=== PATIENT | female | born 1965 | race Caucasian/White ===

== ENCOUNTER 2023-05-09 21:19 | Inpatient (IN) ==
[2023-05-09] MEDS ORDERED: ALBUT/IPRATROP 3MG/0.5MG NEB 3 ML VIAL NEB STA (22:03)
[2023-05-09] MEDS ORDERED: methylPREDNISolone 125 MG/2 ML VIAL IV STA (22:03)
[2023-05-09] MEDS ORDERED: SODIUM CHLORIDE 0.9% 1000ML 1,000 ML IV ONE (22:04)
[2023-05-09 22:17] LABS: Albumin Globulin Ratio 1.3 (0.9-2); Albumin Level 4.5 gm/dl (3.4-5.0); Bilirubin,Total 0.6 mg/dl (0.2-1.0); Calcium 9.5 mg/dl (8.6-10.3); Creatinine Clr Calc Pharmacy 115.1 ml/min; Est GFR (African American) 117.1 ml/min; Globulin 3.4 gm/dl (2.5-4.0); Potassium 4.2 mmol/L (3.5-5.1); Total Protein 7.9 gm/dl (6.0-8.3)
[2023-05-09 22:19] LABS: Basophils # (auto) 0.04 K/uL (0-0.2); Basophils % (auto) 0.5 %; Eosinophils # (auto) 0.15 K/uL (0-0.50); Hematocrit (blood only) 42.4 % (37.0-47.0); Hemoglobin 14.3 g/dl (12.0-16.0); Immature Granulocytes # (auto) 0.02 K/uL (0.01-0.20); Immature Granulocytes % (auto) 0.3 %; Lymphocytes # (auto) 1.64 K/uL (1.2-3.4); Lymphocytes % (auto) 21.8 %; Mean Corpuscular Hemoglobin 26.9 pg (25.0-34.0); Mean Corpuscular Hgb Conc 33.7 g/dL (32.0-36.0); Mean Corpuscular Volume 79.8 fL (80.0-100.0); Mean Platelet Volume 9.9 fL (9.4-12.4); Monocytes # (auto) 0.55 K/uL (0.11-0.59); Monocytes % (auto) 7.3 %; Neutrophils # (auto) 5.14 K/uL (1.40-6.50); Neutrophils % (auto) 68.1 %; Platelet Count 275 K/uL (130-400); RDW Coefficient of Variation 12.8 % (11.5-14.5); RDW Standard Deviation 36.7 fL (36.4-46.3); Red Blood Count 5.31 M/uL (4.20-5.40); White Blood Count 7.54 K/ul (4.8-10.8)
[2023-05-09 22:24] LABS: iSTAT Creatinine 0.5 mg/dl (0.6-1.3); iSTAT Hemoglobin 13.3 g/dl (12.0-16.0); iSTAT Ionized Calcium 1.12 mmol/l (1.12-1.32); iSTAT Potassium 4.1 mmol/L (3.3-5.0)
[2023-05-09 22:27] LABS: Partial Thromboplastin Ratio 0.9; Partial Thromboplastin Time 25.9 Seconds (21.0-31.0); Prothrombin Time 10.8 Seconds (9.0-12.0)
[2023-05-09] MEDS ORDERED: IOVERSOL 350 MG 125mL Prefilled Syringe IV ONE (22:38)
[2023-05-10 00:19] LABS: Adenovirus PCR Not Detected (NotDetected); Bordetella parapertussis PCR Not Detected (NotDetected); Bordetella pertussis PCR Not Detected (NotDetected); Chlamydia pneumoniae PCR Not Detected (NotDetected); Coronavirus 229E PCR Not Detected (NotDetected); Coronavirus CoV-2 (COVID19)PCR Not Detected (NotDetected); Coronavirus HKU1 PCR Not Detected (NotDetected); Coronavirus NL63 PCR Not Detected (NotDetected); Coronavirus OC43PCR Not Detected (NotDetected); Human Metapneumovirus PCR Not Detected (NotDetected); Influenza A PCR Not Detected (NotDetected); Influenza B PCR Not Detected (NotDetected); Mycoplasma pneumoniae PCR Not Detected (NotDetected); Parainfluenza Virus 1 PCR Not Detected (NotDetected); Parainfluenza Virus 2 PCR Not Detected (NotDetected); Parainfluenza Virus 3 PCR Not Detected (NotDetected); Parainfluenza Virus 4 PCR Not Detected (NotDetected); Respiratory Syncytial VirusPCR Not Detected (NotDetected)
--- NOTE | 2023-05-10 00:20 | CT Scan Report ---
Exam(s): CTA CHEST IV Amt: 118ml OPTIRAY 350 EXAM: CT Angiography Chest With Intravenous Contrast CLINICAL HISTORY: Reason for exam: PE. TECHNIQUE: Axial computed tomographic angiography images of the chest with intravenous contrast. CTDI is 26.3 mGy and DLP is 816.47 mGy-cm. Automated exposure control was utilized for the study. A dose lowering technique was utilized adhering to the principles of ALARA. MIP reconstructed images were created and reviewed. 118 ML Optiray 350 given IV. Mild breathing motion artifact. COMPARISON: None. FINDINGS: Pulmonary arteries: No pulmonary embolism. Breathing motion artifact and attenuation of the distal basilar branches limits evaluation for small or peripheral PE. Aorta: No aneurysm. Lungs: Mild interstitial thickening lower lobes, nonspecific, possible pneumonia. No consolidation. Pleural space: Mild bilateral pleural effusion. No pneumothorax. Heart: Mild to moderate cardiomegaly. No significant pericardial effusion. No evidence of elevated right heart pressures. Bones/joints: No acute fracture. Soft tissues: Unremarkable. Lymph nodes: No enlarged lymph nodes. IMPRESSION: 1. No pulmonary embolism. 2. Mild bilateral pleural effusions and infiltrates are nonspecific, concerning for pneumonia. Electronically signed by: Alisa Dawkins M.D. 05/10/23 00:19 AM
[2023-05-10] MEDS ORDERED: cefTRIAXone SODIUM 2,000 MG/70 ML BAG IV STA (00:24)
[2023-05-10] MEDS ORDERED: AZITHROMYCIN 250 MG TAB PO ONE (00:24)
[2023-05-10 00:31] LABS: Rhinovirus/Enterovirus PCR DETECTED (NotDetected)
[2023-05-10 01:10] LABS: C Reactive Protein 0.85 mg/dl (0-0.5)
--- NOTE | 2023-05-10 01:10 | Emergency Department Note ---
History of Present Illness General Chief complaint: Shortness of Breath/Dyspnea Stated complaint: SOB, COUGHING UP MUCUS, TIGHTNESS IN CHEST, ASTHMA Time Seen by Provider: 05/09/23 21:47 History of Present Illness Maximum Pain Intensity: 6 This 58-year-old female presents to the ER complaining of chest pain, dyspnea, cough and congestion for the past week. Patient uses tobacco products. She does not routinely see a doctor.Patient denies fevers, exertional chest pain, abdominal pain, vomiting, diarrhea. No prior heart disease per patient. No history of blood clots. She has had some increased swelling in her legs bilaterally. Past Med/Surg History Social History Smoking Status: Current every day smoker Tobacco Type: E-cigarettes / Vaping Preferred Language: [place] Feels Safe at Home: Yes Review of Systems A total of 10 systems reviewed and were otherwise negative Physical Exam Vital Signs Vital Signs - 24 hr 05/09/23 21:21 05/09/23 22:10 05/09/23 22:16 Temperature 36.5 C Temperature Source Temporal Artery Scan Pulse Rate 102 H Pulse Rate [Bilateral] 90 Pulse Rate from SpO2 Sensor Pulse Rhythm Respiratory Rate 18 15 Respiratory Depth Normal Blood Pressure 178/87 H Blood Pressure [Left Arm] 156/88 H Blood Pressure Mean 117 Blood Pressure Mean [Left Arm] 110 Pulse Oximetry 96 98 Oxygen Delivery Method Room Air Room Air Sepsis Recent Fever Within 48 Hours No Sepsis New/Unexplained Change in Mental Status N/A Sepsis Action Taken by Nursing No Action Required 05/09/23 22:16 05/09/23 22:13 05/10/23 00:00 Temperature Temperature Source Pulse Rate 90 90 96 H Pulse Rate [Bilateral] Pulse Rate from SpO2 Sensor 95 H Pulse Rhythm Regular Respiratory Rate 18 Respiratory Depth Blood Pressure 148/87 H Blood Pressure [Left Arm] Blood Pressure Mean 107 Blood Pressure Mean [Left Arm] Pulse Oximetry 98 92 Oxygen Delivery Method Room Air Sepsis Recent Fever Within 48 Hours Sepsis New/Unexplained Change in Mental Status Sepsis Action Taken by Nursing VITALS: Vitals are noted on the nurse's note and reviewed by myself. Vital signs stable. GENERAL: pleasant female, in no acute distress, nondiaphoretic, well-developed well-nourished. SKIN: The skin was without rashes, erythema, or bruising. There is no tenting of the skin. Capillary reflex less than 2 seconds. HEAD: Normocephalic atraumatic. EARS: External auditory canals clear, tympanic membranes pearly méndez without erythema or effusion bilaterally. EYES: Pupils equal round and reactive to light and accommodation. Conjunctivae without injection, sclerae without icterus. Extraocular movements intact. NOSE: Patent, turbinates without inflammation or discharge. MOUTH: Mucous membranes moist. Pharynx without erythema or exudate. Uvula midline. Airway patent. Tongue does not deviate. NECK: Supple without nuchal rigidity. No lymphadenopathy. No thyromegaly. Cervical spine is nontender. No JVD. HEART: Regular rate and rhythm LUNGS: Mild diffuse inspiratory and end expiratory wheezes, No retractions or accessory muscle use. ABDOMEN: Positive bowel sounds x 4. Normal tympanic percussion. Soft, nontender, without masses or organomegaly. Salamanca sign negative. No guarding or rebound tenderness. No CVA tenderness MUSCULOSKELETAL: No muscle atrophy, erythema, noted. Minimal pitting edema to the lower extremities bilaterally NEURO: Patient was alert and oriented to person place and time. Normal sensation to light and sharp touch. No focal neurological deficits. Course Administered Medications Discontinued Medications Albuterol (Albut/Ipratrop 3mg/0.5mg Neb 3 Ml Vial) 3 ml NEB NOW STA; Protocol Stop: 05/09/23 22:04 Last Admin: 05/09/23 22:50 Dose: 3 ml Documented By: SAMEER Azithromycin (Azithromycin 250 Mg Tab) 500 mg PO NOW ONE Stop: 05/10/23 00:25 Last Admin: 05/10/23 00:40 Dose: 500 mg Documented By: JARAD Sodium Chloride (Nss 1000ml) 1,000 mls @ 999 mls/hr IV .Q1H1M ONE Stop: 05/09/23 23:04 Last Infusion: 05/09/23 23:58 Dose: 0 mls/hr Documented By: Admin: 05/09/23 22:50 Dose: 999 mls/hr Documented By: SAMEER Ceftriaxone Sodium (Rocephin) 2,000 mg in 70 mls @ 140 mls/hr IV NOW STA Stop: 05/10/23 00:53 Last Admin: 05/10/23 00:39 Dose: 140 mls/hr Documented By: JARAD Ioversol (Ioversol 350 Mg 125ml Prefilled Syringe) 118 ml IV ONCE ONE Stop: 05/09/23 22:39 Last Admin: 05/09/23 22:38 Dose: 118 ml Documented By: WESTON Methylprednisolone (Methylprednisolone 125 Mg/2 Ml Vial) 125 mg IV NOW STA Stop: 05/09/23 22:04 Last Admin: 05/09/23 22:50 Dose: 125 mg Documented By: SAMEER Medical Decision Making Medical Records Attestation: I reviewed the patient's medical records. Home Medications Current Medication List: was personally reviewed by me Laboratory Data Attestation: I reviewed the patient's lab results. 05/09/23 21:40 05/09/23 21:40 Lab Results 05/09/23 05/09/23 05/09/23 Range/Units 11:10 21:40 21:40 WBC 7.54 (4.8-10.8) K/ul RBC 5.31 (4.20-5.40) M/uL Hgb 14.3 (12.0-16.0) g/dl POC Hgb (12.0-16.0) g/dl Hct 42.4 (37.0-47.0) % POC Hct (37-47) % MCV 79.8 L (80.0-100.0) fL MCH 26.9 (25.0-34.0) pg MCHC 33.7 (32.0-36.0) g/dL RDW Std Deviation 36.7 (36.4-46.3) fL RDW Coeff of Viktor 12.8 (11.5-14.5) % Plt Count 275 (130-400) K/uL MPV 9.9 (9.4-12.4) fL Immature Gran % (Auto) 0.3 % Neut % (Auto) 68.1 % Lymph % (Auto) 21.8 % Barbour % (Auto) 7.3 % Eos % (Auto) 2.0 % Baso % (Auto) 0.5 % Neut # (Auto) 5.14 (1.40-6.50) K/uL Lymph # (Auto) 1.64 (1.2-3.4) K/uL Barbour # (Auto) 0.55 (0.11-0.59) K/uL Eos # (Auto) 0.15 (0-0.50) K/uL Baso # (Auto) 0.04 (0-0.2) K/uL Immature Gran # (Auto) 0.02 (0.01-0.20) K/uL ESR (0-30) mm/hr PT 10.8 (9.0-12.0) Seconds INR 1.0 (0.9-1.1) APTT 25.9 (21.0-31.0) Seconds PTT Ratio 0.9 POC Sodium (135-144) mmol/L Sodium (136-145) mmol/L POC Potassium (3.3-5.0) mmol/L Potassium (3.5-5.1) mmol/L POC Chloride (101-112) mmol/L Chloride (98-107) mmol/L Carbon Dioxide (21-32) mmol/L POC Total CO2 (24-31) mmol/L Anion Gap (3-11) POC Anion Gap (16-25) mmol/L POC BUN (7-18) mg/dl BUN (6-23) mg/dl Creatinine (0.6-1.2) mg/dl POC Creatinine (0.6-1.3) mg/dl Est Cr Clr Drug Dosing ml/min Est GFR ( Amer) ml/min Est GFR (Non-Af Amer) ml/min BUN/Creatinine Ratio (10-20) Glucose (70-99(Fasting)) mg/dl POC Glucose (other) (70-99) mg/dl Calcium (8.6-10.3) mg/dl POC Ioniz Calcium Nicol (1.12-1.32) mmol/l Total Bilirubin (0.2-1.0) mg/dl AST (13-39) U/L ALT (7-52) U/L Alkaline Phosphatase (34-104) U/L Troponin I High Sens (0-14) pg/ml B-Natriuretic Peptide (0-100) pg/ml Total Protein (6.0-8.3) gm/dl Albumin (3.4-5.0) gm/dl Globulin (2.5-4.0) gm/dl Albumin/Globulin Ratio (0.9-2) Adenovirus (PCR) Not Detected (NotDetected) B. pertussis DNA (PCR) Not Detected (NotDetected) B.parapertussis DNA PCR Not Detected (NotDetected) C. pneumoniae DNA (PCR) Not Detected (NotDetected) Coronavirus OC43 (PCR) Not Detected (NotDetected) Coronavirus HKU1 (PCR) Not Detected (NotDetected) Coronavirus 229E (PCR) Not Detected (NotDetected) SARS-CoV-2 (PCR) Not Detected (NotDetected) Coronavirus NL63 (PCR) Not Detected (NotDetected) Human Metapneumovir PCR Not Detected (NotDetected) Influenza Type A (PCR) Not Detected (NotDetected) Influenza Type B (PCR) Not Detected (NotDetected) M. pneumoniae (PCR) Not Detected (NotDetected) Parainfluenza 1 (PCR) Not Detected (NotDetected) Parainfluenza 2 (PCR) Not Detected (NotDetected) Parainfluenza 3 (PCR) Not Detected (NotDetected) Parainfluenza 4 (PCR) Not Detected (NotDetected) RSV (PCR) Not Detected (NotDetected) Entero/Rhino (PCR) DETECTED A* (NotDetected) 05/09/23 05/09/23 05/09/23 Range/Units 21:40 21:40 22:07 WBC (4.8-10.8) K/ul RBC (4.20-5.40) M/uL Hgb (12.0-16.0) g/dl POC Hgb 13.3 (12.0-16.0) g/dl Hct (37.0-47.0) % POC Hct 39 (37-47) % MCV (80.0-100.0) fL MCH (25.0-34.0) pg MCHC (32.0-36.0) g/dL RDW Std Deviation (36.4-46.3) fL RDW Coeff of Viktor (11.5-14.5) % Plt Count (130-400) K/uL MPV (9.4-12.4) fL Immature Gran % (Auto) % Neut % (Auto) % Lymph % (Auto) % Barbour % (Auto) % Eos % (Auto) % Baso % (Auto) % Neut # (Auto) (1.40-6.50) K/uL Lymph # (Auto) (1.2-3.4) K/uL Barbour # (Auto) (0.11-0.59) K/uL Eos # (Auto) (0-0.50) K/uL Baso # (Auto) (0-0.2) K/uL Immature Gran # (Auto) (0.01-0.20) K/uL ESR (0-30) mm/hr PT (9.0-12.0) Seconds INR (0.9-1.1) APTT (21.0-31.0) Seconds PTT Ratio POC Sodium 134 L (135-144) mmol/L Sodium 133 L (136-145) mmol/L POC Potassium 4.1 (3.3-5.0) mmol/L Potassium 4.2 (3.5-5.1) mmol/L POC Chloride 96 L (101-112) mmol/L Chloride 97 L (98-107) mmol/L Carbon Dioxide 27 (21-32) mmol/L POC Total CO2 27 (24-31) mmol/L Anion Gap 9 (3-11) POC Anion Gap 15.0 L (16-25) mmol/L POC BUN 12 (7-18) mg/dl BUN 13 (6-23) mg/dl Creatinine 0.59 L (0.6-1.2) mg/dl POC Creatinine 0.5 L (0.6-1.3) mg/dl Est Cr Clr Drug Dosing 115.1 ml/min Est GFR ( Amer) 117.1 ml/min Est GFR (Non-Af Amer) 101.0 ml/min BUN/Creatinine Ratio 22.0 H (10-20) Glucose 260 H (70-99(Fasting)) mg/dl POC Glucose (other) 256 H (70-99) mg/dl Calcium 9.5 (8.6-10.3) mg/dl POC Ioniz Calcium Nicol 1.12 (1.12-1.32) mmol/l Total Bilirubin 0.6 (0.2-1.0) mg/dl AST 17 (13-39) U/L ALT 19 (7-52) U/L Alkaline Phosphatase 90 (34-104) U/L Troponin I High Sens 42.0 H (0-14) pg/ml B-Natriuretic Peptide 856 H (0-100) pg/ml Total Protein 7.9 (6.0-8.3) gm/dl Albumin 4.5 (3.4-5.0) gm/dl Globulin 3.4 (2.5-4.0) gm/dl Albumin/Globulin Ratio 1.3 (0.9-2) Adenovirus (PCR) (NotDetected) B. pertussis DNA (PCR) (NotDetected) B.parapertussis DNA PCR (NotDetected) C. pneumoniae DNA (PCR) (NotDetected) Coronavirus OC43 (PCR) (NotDetected) Coronavirus HKU1 (PCR) (NotDetected) Coronavirus 229E (PCR) (NotDetected) SARS-CoV-2 (PCR) (NotDetected) Coronavirus NL63 (PCR) (NotDetected) Human Metapneumovir PCR (NotDetected) Influenza Type A (PCR) (NotDetected) Influenza Type B (PCR) (NotDetected) M. pneumoniae (PCR) (NotDetected) Parainfluenza 1 (PCR) (NotDetected) Parainfluenza 2 (PCR) (NotDetected) Parainfluenza 3 (PCR) (NotDetected) Parainfluenza 4 (PCR) (NotDetected) RSV (PCR) (NotDetected) Entero/Rhino (PCR) (NotDetected) 05/10/23 Range/Units 00:40 WBC (4.8-10.8) K/ul RBC (4.20-5.40) M/uL Hgb (12.0-16.0) g/dl POC Hgb (12.0-16.0) g/dl Hct (37.0-47.0) % POC Hct (37-47) % MCV (80.0-100.0) fL MCH (25.0-34.0) pg MCHC (32.0-36.0) g/dL RDW Std Deviation (36.4-46.3) fL RDW Coeff of Viktor (11.5-14.5) % Plt Count (130-400) K/uL MPV (9.4-12.4) fL Immature Gran % (Auto) % Neut % (Auto) % Lymph % (Auto) % Barbour % (Auto) % Eos % (Auto) % Baso % (Auto) % Neut # (Auto) (1.40-6.50) K/uL Lymph # (Auto) (1.2-3.4) K/uL Barbour # (Auto) (0.11-0.59) K/uL Eos # (Auto) (0-0.50) K/uL Baso # (Auto) (0-0.2) K/uL Immature Gran # (Auto) (0.01-0.20) K/uL ESR 21 (0-30) mm/hr PT (9.0-12.0) Seconds INR (0.9-1.1) APTT (21.0-31.0) Seconds PTT Ratio POC Sodium (135-144) mmol/L Sodium (136-145) mmol/L POC Potassium (3.3-5.0) mmol/L Potassium (3.5-5.1) mmol/L POC Chloride (101-112) mmol/L Chloride (98-107) mmol/L Carbon Dioxide (21-32) mmol/L POC Total CO2 (24-31) mmol/L Anion Gap (3-11) POC Anion Gap (16-25) mmol/L POC BUN (7-18) mg/dl BUN (6-23) mg/dl Creatinine (0.6-1.2) mg/dl POC Creatinine (0.6-1.3) mg/dl Est Cr Clr Drug Dosing ml/min Est GFR ( Amer) ml/min Est GFR (Non-Af Amer) ml/min BUN/Creatinine Ratio (10-20) Glucose (70-99(Fasting)) mg/dl POC Glucose (other) (70-99) mg/dl Calcium (8.6-10.3) mg/dl POC Ioniz Calcium Nicol (1.12-1.32) mmol/l Total Bilirubin (0.2-1.0) mg/dl AST (13-39) U/L ALT (7-52) U/L Alkaline Phosphatase (34-104) U/L Troponin I High Sens (0-14) pg/ml B-Natriuretic Peptide (0-100) pg/ml Total Protein (6.0-8.3) gm/dl Albumin (3.4-5.0) gm/dl Globulin (2.5-4.0) gm/dl Albumin/Globulin Ratio (0.9-2) Adenovirus (PCR) (NotDetected) B. pertussis DNA (PCR) (NotDetected) B.parapertussis DNA PCR (NotDetected) C. pneumoniae DNA (PCR) (NotDetected) Coronavirus OC43 (PCR) (NotDetected) Coronavirus HKU1 (PCR) (NotDetected) Coronavirus 229E (PCR) (NotDetected) SARS-CoV-2 (PCR) (NotDetected) Coronavirus NL63 (PCR) (NotDetected) Human Metapneumovir PCR (NotDetected) Influenza Type A (PCR) (NotDetected) Influenza Type B (PCR) (NotDetected) M. pneumoniae (PCR) (NotDetected) Parainfluenza 1 (PCR) (NotDetected) Parainfluenza 2 (PCR) (NotDetected) Parainfluenza 3 (PCR) (NotDetected) Parainfluenza 4 (PCR) (NotDetected) RSV (PCR) (NotDetected) Entero/Rhino (PCR) (NotDetected) Imaging Data Attestation: I personally reviewed and interpreted this imaging study as follows: Radiologist's Impression: Chest CTA 05/09/23 22:03 Exam(s): CTA CHEST IV Amt: 118ml OPTIRAY 350 EXAM: CT Angiography Chest With Intravenous Contrast CLINICAL HISTORY: Reason for exam: PE. TECHNIQUE: Axial computed tomographic angiography images of the chest with intravenous contrast. CTDI is 26.3 mGy and DLP is 816.47 mGy-cm. Automated exposure control was utilized for the study. A dose lowering technique was utilized adhering to the principles of ALARA. MIP reconstructed images were created and reviewed. 118 ML Optiray 350 given IV. Mild breathing motion artifact. COMPARISON: None. FINDINGS: Pulmonary arteries: No pulmonary embolism. Breathing motion artifact and attenuation of the distal basilar branches limits evaluation for small or peripheral PE. Aorta: No aneurysm. Lungs: Mild interstitial thickening lower lobes, nonspecific, possible pneumonia. No consolidation. Pleural space: Mild bilateral pleural effusion. No pneumothorax. Heart: Mild to moderate cardiomegaly. No significant pericardial effusion. No evidence of elevated right heart pressures. Bones/joints: No acute fracture. Soft tissues: Unremarkable. Lymph nodes: No enlarged lymph nodes. IMPRESSION: 1. No pulmonary embolism. 2. Mild bilateral pleural effusions and infiltrates are nonspecific, concerning for pneumonia. Electronically signed by: Alisa Dawkins M.D. 05/10/23 00:19 AM MDM Narrative Prior records/ancillary studies reviewed. Triage Nursing notes reviewed. Additional history obtained from family. The patient's history was concerning for chest pain. Differential diagnosis: Etiologies such as cardiac ischemia, aortic dissection, pulmonary embolism, pneumonia, pneumothorax, musculoskeletal, infections, pericarditis, myocarditis, esophageal rupture, gastrointestinal, as well as others were entertained. Physical examination: As above. ER treatment provided: An order was placed for continuous cardiac monitoring. The monitor shows a rate of 60-1 20 with a sinus rhythm per my interpretation. IV fluids, nebulizer, Solu-Medrol, Rocephin and Zithromax were ordered On reassessment the patient felt better. Diagnostic interpretation by me: #1 the electrocardiogram was ordered for chest pain EKG: Normal sinus, normal intervals, minimal ST elevation in V1 and V2, T wave inversion in aVL, impression normal sinus rhythm with subtle ST changes inability to prevent myself I think arrhythmia is unlikely. EKG shows normal sinus rhythm with no interval abnormalities such as QT prolongation or WPW. There are no findings to suggest Brugada syndrome. Cardiac monitoring in the emergency department reveals no tachycardic or bradycardic dysrhythmia. Hypertrophic cardiomyopathy was considered but there are no clear historical elements pointing toward this. EKG is not suggestive. The QRS voltage is not extremely large and there are no suggestive Q waves. #2 the electrocardiogram was ordered for chest pain EKG: Normal sinus, normal intervals, minimal ST elevation in V1 and V2, T wave inversion in aVL, impression normal sinus rhythm with subtle ST changes inability to prevent myself I think arrhythmia is unlikely. EKG shows normal sinus rhythm with no interval abnormalities such as QT prolongation or WPW. There are no findings to suggest Brugada syndrome. Cardiac monitoring in the emergency department reveals no tachycardic or bradycardic dysrhythmia. Hypertrophic cardiomyopathy was considered but there are no clear historical elements pointing toward this. EKG is not suggestive. The QRS voltage is not extremely large and there are no suggestive Q waves. #3 the electrocardiogram was ordered for chest pain EKG: Normal sinus, normal intervals, minimal ST elevation in V1 and V2, T wave inversion in aVL, impression normal sinus rhythm with subtle ST changes inabi lity to prevent myself I think arrhythmia is unlikely. EKG shows normal sinus rhythm with no interval abnormalities such as QT prolongation or WPW. There are no findings to suggest Brugada syndrome. Cardiac monitoring in the emergency department reveals no tachycardic or bradycardic dysrhythmia. Hypertrophic cardiomyopathy was considered but there are no clear historical elements pointing toward this. EKG is not suggestive. The QRS voltage is not extremely large and there are no suggestive Q waves. The labs Independently Interpreted by myself revealed elevated troponin and repeat was Positive rhinovirus Elevated BNP Hyperglycemia without DKA Imaging studies: Chest x-ray with no acute consolidation, pneumothorax or free air per my independent interpretation CTA concerning for mild bilateral pleural effusions and infiltrates concerning for pneumonia per my independent interpretation. Report was reviewed as above. HEART SCORE: Hx: high/mod/low suspicion: 1 ECG: ST depression/nonspecific changes/normal: 1 Age: Greater than 65/45-64/less than 45: 1 Risk factors: (Hypertension, hyperlipidemia, diabetes, coronary disease, tobacco use, cocaine use): 1 Troponin: Greater than 2 times normal limits/1-2 times normal limits/normal: 1 Total: 4 Consultation: A consultation was placed with the hospitalist. The case was discussed and diagnostics were reviewed. The patient was evaluated in the ER for further treatment. Exam and history seem consistent with pneumonia with positive rhinovirus and elevated troponin. EKG was repeated x3 and was unchanged. She had some subtle ST changes. Patient had no exertional chest pain. She only had chest pain when she coughs. She had symptoms for a week. She does not routinely see a doctor. Patient is agreeable treatment plan of admission. Medicine was consulted and the case was discussed. She will be admitted to the medical service for further evaluation and work-up. She was started on antibiotics. Labs and diagnostics were independently interpreted by myself. By the evaluation outlined above emergent etiologies such as aortic dissection, pulmonary embolism, pneumothorax, gastrointestinal, as well as others were deemed relatively unlikely. The pt informed about the findings as listed above. All questions were answered and pleased with the treatment. The chart was completed utilizing [employer] voice recognition software. Grammatical errors, random word insertions, pronoun errors, and incomplete sentences are an occassional consequence of this system due to software limitations, ambient noise, and hardware issues. Any formal questions or concerns about the content, text, or information contained within the body of this dictation should be directly addressed to the physician portfolio assistant for clarification. Impression & Plan Community acquired pneumonia, Elevated troponin, Acute hyperglycemia Discharge Plan Visit Data Chief Complaint: Shortness of Breath/Dyspnea Stated Complaint: SOB, COUGHING UP MUCUS, TIGHTNESS IN CHEST, ASTHMA ED Provider: Bryan Barry ED Midlevel Provider: Aparna Dodson Discharge Problem: Community acquired pneumonia, Elevated troponin, Acute hyperglycemia Patient Disposition: Admitted As Inpatient Condition: Fair Forms Stand Alone Forms: My [facility] Referrals Referrals: PCP,NO [Primary Care Provider] -
[2023-05-10 01:18] LABS: Troponin I High Sensitivity 32.5 pg/ml (0-14)
[2023-05-10] MEDS ORDERED: FUROSEMIDE INJ 20 MG/2 ML VIAL IV ONE ×2 (01:44→13:42)
[2023-05-10 01:45] LABS: Magnesium 1.7 mg/dl (1.7-2.4)
[2023-05-10] MEDS ORDERED: Patient's ALLERGY Info needs ENTERED STA ×2 (02:36→03:13)
[2023-05-10] MEDS ORDERED: METOPROLOL TARTRATE 25 MG TAB PO STA (03:01)
--- NOTE | 2023-05-10 03:01 | History & Physical Report ---
Date of Service May 10, 2023 Assessment & Plan (1) SOB (shortness of breath): Plan: Multifactorial: Community-acquired pneumonia, entero/rhinovirus infection with superimposed bacterial infection, no sepsis for now Acute CHF ? Possibly from uncontrolled BP, hx medication noncompliance Troponin elevation secondary to illness hyperlipidemia, medication noncompliance DM2, history of medication noncompliance, currently diet controlled, suboptimal control as of last outpatient hemoglobin A1c of 8.8 in 2016. ongoing vape use PCU Ceftriaxone, Doxycycline IV Lasix 1 dose now. Strict I/Os, daily weights, CHF education Initiate beta-lashonda and resume prior lisinopril Rx for BP control Follow troponin TTE, Cardiology consult Re: CHF Patient agreeable to resuming previous statin Rx. Basal bolus insulin, ISS BG goal 1 10-1 40, carb count coverage, update he moglobin A1c DVT prophylaxis. Lovenox subcu Full code Text document was generated using aroundtheway voice recognition software. It may contain grammatical or spelling errors. Kindly contact undersigned for clarification of any documentation item in question. History of Present Illness Chief Complaint: Chest pain, cough, SOB. Primary Care Provider: NO PCP History obtained from patient and records. Medical history significant for hypertension, hyperlipidemia, DM2 currently diet controlled, ongoing vape use, medical noncompliance. Patient stopped going to her PCP 5 years ago after losing medical insurance. She stopped taking home medications (lisinopril, Lipitor, and metformin) after losing significant weight. 1 week history of of junky cough symptoms productive of yellow-green sputum. 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 Denies aspiration. Has completed COVID-19 vaccination. 3 days ago, patient noted worsening shortness of breath, fluid retention, leg swelling. Central chest pain without radiation. Ceftriaxone, azithromycin, Solu-Medrol and neb treatment administered upon arrival at the ER. 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 Allergies Allergy/AdvReac Type Severity Reaction Status Date / Time bee venom protein (honey bee) Allergy Severe Anaphylaxis Verified 05/10/23 10:22 metformin AdvReac Vomiting Verified 05/10/23 03:33 Home Medications Medication Instructions Recorded Confirmed Type acetaminophen 500 mg tablet 1,000 mg PO Q6H PRN Fever Or Pain 05/10/23 05/10/23 History (Tylenol Extra Strength) Past Med/Surg History Social History Smoking Status: Current every day smoker Tobacco Type: E-cigarettes / Vaping Preferred Language: Moroccan Feels Safe at Home: Yes Review of Systems Review of Systems: As per HPI, all other systems reviewed and negative Physical Exam Physical Exam: GENERAL: Comfortable, obese, pleasant, no respiratory distress SKIN: Normal color, warm HEENT: [place] palpebral conjunctivae, no ptosis, dry buccal mucosa NECK : Supple, short neck, no tenderness CHEST : Decreased breath sounds, scattered expiratory wheezes, no tenderness HEART : RRR, no obvious murmurs ABDOMEN: Some distention, nontender EXTREMITIES : Bilateral LE swelling, no LE tenderness, prominent LE varicosities, no other conspicuous deformities noted NEUROLOGIC : Coherent, no facial asymmetry, no other gross focality Results & Data Results & Data Vital Signs (Past 12 Hours) Vital Signs Temp Pulse Pulse Resp BP BP Pulse Ox 05/10/23 02:00 92 H 14 126/75 92 05/10/23 02:03 92 H 05/10/23 01:00 95 H 18 145/83 H 92 05/10/23 00:00 96 H 18 148/87 H 92 05/09/23 22:13 90 05/09/23 22:16 90 98 05/09/23 22:16 90 15 156/88 H 98 05/09/23 22:10 05/09/23 21:21 36.5 C 102 H 18 178/87 H 96 O2 Del Method 05/10/23 02:00 05/10/23 02:03 05/10/23 01:00 05/10/23 00:00 05/09/23 22:13 05/09/23 22:16 Room Air 05/09/23 22:16 05/09/23 22:10 Room Air 05/09/23 21:21 Room Air Laboratory Results Laboratory Results WBC 7.54 K/ul (4.8-10.8) 05/09/23 21:40 RBC 5.31 M/uL (4.20-5.40) 05/09/23 21:40 Hgb 14.3 g/dl (12.0-16.0) 05/09/23 21:40 POC Hgb 13.3 g/dl (12.0-16.0) 05/09/23 22:07 Hct 42.4 % (37.0-47.0) 05/09/23 21:40 POC Hct 39 % (37-47) 05/09/23 22:07 MCV 79.8 fL (80.0-100.0) L 05/09/23 21:40 MCH 26.9 pg (25.0-34.0) 05/09/23 21:40 MCHC 33.7 g/dL (32.0-36.0) 05/09/23 21:40 RDW Std Deviation 36.7 fL (36.4-46.3) 05/09/23 21:40 RDW Coeff of Viktor 12.8 % (11.5-14.5) 05/09/23 21:40 Plt Count 275 K/uL (130-400) 05/09/23 21:40 MPV 9.9 fL (9.4-12.4) 05/09/23 21:40 Immature Gran % (Auto) 0.3 % 05/09/23 21:40 Neut % (Auto) 68.1 % 05/09/23 21:40 Lymph % (Auto) 21.8 % 05/09/23 21:40 [place] % (Auto) 7.3 % 05/09/23 21:40 Eos % (Auto) 2.0 % 05/09/23 21:40 Baso % (Auto) 0.5 % 05/09/23:40 Neut # (Auto) 5.14 K/uL (1.40-6.50) 05/09/23 21:40 Lymph # (Auto) 1.64 K/uL (1.2-3.4) 05/09/23 21:40 [place] # (Auto) 0.55 K/uL (0.11-0.59) 05/09/23 21:40 Eos # (Auto) 0.15 K/uL (0-0.50) 05/09/23 21:40 Baso # (Auto) 0.04 K/uL (0-0.2) 05/09/23 21:40 Immature Gran # (Auto) 0.02 K/uL (0.01-0.20) 05/09/23 21:40 ESR 21 mm/hr (0-30) 05/10/23 00:40 PT 10.8 Seconds (9.0-12.0) 05/09/23 21:40 INR 1.0 (0.9-1.1) 05/09/23 21:40 APTT 25.9 Seconds (21.0-31.0) 05/09/23 21:40 PTT Ratio 0.9 05/09/23 21:40 POC Sodium 134 mmol/L (135-144) L 05/09/23 22:07 Sodium 133 mmol/L (136-145) L 05/09/23 21:40 POC Potassium 4.1 mmol/L (3.3-5.0) 05/09/23 22:07 Potassium 4.2 mmol/L (3.5-5.1) 05/09/23 21:40 POC Chloride 96 mmol/L (101-112) L 05/09/23 22:07 Chloride 97 mmol/L (98-107) L 05/09/23 21:40 Carbon Dioxide 27 mmol/L (21-32) 05/09/23 21:40 POC Total CO2 27 mmol/L (24-31) 05/09/23 22:07 Anion Gap 9 (3-11) 05/09/23 21:40 POC Anion Gap 15.0 mmol/L (16-25) L 05/09/23 22:07 POC BUN 12 mg/dl (7-18) 05/09/23 22:07 BUN 13 mg/dl (6-23) 05/09/23 21:40 Creatinine 0.59 mg/dl (0.6-1.2) L 05/09/23 21:40 POC Creatinine 0.5 mg/dl (0.6-1.3) L 05/09/23 22:07 Est Cr Clr Drug Dosing 115.1 ml/min 05/09/23 21:40 Est GFR ( Amer) 117.1 ml/min 05/09/23 21:40 Est GFR (Non-Af Amer) 101.0 ml/min 05/09/23 21:40 BUN/Creatinine Ratio 22.0 (10-20) H 05/09/23 21:40 Glucose 260 mg/dl (70-99(Fasting)) H 05/09/23 21:40 POC Glucose (other) 256 mg/dl (70-99) H 05/09/23 22:07 Calcium 9.5 mg/dl (8.6-10.3) 05/09/23 21:40 POC Ioniz Calcium Nicol 1.12 mmol/l (1.12-1.32) 05/09/23 22:07 Magnesium 1.7 mg/dl (1.7-2.4) 05/10/23 00:40 Total Bilirubin 0.6 mg/dl (0.2-1.0) 05/09/23 21:40 AST 17 U/L (13-39) 05/09/23 21:40 ALT 19 U/L (7-52) 05/09/23 21:40 Alkaline Phosphatase 90 U/L (34-104) 05/09/23 21:40 Troponin I High Sens 32.5 pg/ml (0-14) H 05/10/23 00:40 C-Reactive Protein 0.85 mg/dl (0-0.5) H 05/10/23 00:40 B-Natriuretic Peptide 856 pg/ml (0-100) H 05/09/23 21:40 Total Protein 7.9 gm/dl (6.0-8.3) 05/09/23 21:40 Albumin 4.5 gm/dl (3.4-5.0) 05/09/23 21:40 Globulin 3.4 gm/dl (2.5-4.0) 05/09/23 21:40 Albumin/Globulin Ratio 1.3 (0.9-2) 05/09/23 21:40 Adenovirus (PCR) Not Detected (NotDetected) 05/09/23 11:10 B. pertussis DNA (PCR) Not Detected (NotDetected) 05/09/23 11:10 B.parapertussis DNA PCR Not Detected (NotDetected) 05/09/23 11:10 C. pneumoniae DNA (PCR) Not Detected (NotDetected) 05/09/23 11:10 Coronavirus OC43 (PCR) Not Detected (NotDetected) 05/09/23 11:10 Coronavirus HKU1 (PCR) Not Detected (NotDetected) 05/09/23 11:10 Coronavirus 229E (PCR) Not Detected (NotDetected) 05/09/23 11:10 SARS-CoV-2 (PCR) Not Detected (NotDetected) 05/09/23 11:10 Coronavirus NL63 (PCR) Not Detected (NotDetected) 05/09/23 11:10 Human Metapneumovir PCR Not Detected (NotDetected) 05/09/23 11:10 Influenza Type A (PCR) Not Detected (NotDetected) 05/09/23 11:10 Influenza Type B (PCR) Not Detected (NotDetected) 05/09/23 11:10 M. pneumoniae (PCR) Not Detected (NotDetected) 05/09/23 11:10 Parainfluenza 1 (PCR) Not Detected (NotDetected) 05/09/23 11:10 Parainfluenza 2 (PCR) Not Detected (NotDetected) 05/09/23 11:10 Parainfluenza 3 (PCR) Not Detected (NotDetected) 05/09/23 11:10 Parainfluenza 4 (PCR) Not Detected (NotDetected) 05/09/23 11:10 RSV (PCR) Not Detected (NotDetected) 05/09/23 11:10 Entero/Rhino (PCR) DETECTED (NotDetected) A* 05/09/23 11:10 Impressions Chest CTA 05/09/23 22:03 Exam(s): CTA CHEST IV Amt: 118ml OPTIRAY 350 EXAM: CT Angiography Chest With Intravenous Contrast CLINICAL HISTORY: Reason for exam: PE. TECHNIQUE: Axial computed tomographic angiography images of the chest with intravenous contrast. CTDI is 26.3 mGy and DLP is 816.47 mGy-cm. Automated exposure control was utilized for the study. A dose lowering technique was utilized adhering to the principles of ALARA. MIP reconstructed images were created and reviewed. 118 ML Optiray 350 given IV. Mild breathing motion artifact. COMPARISON: None. FINDINGS: Pulmonary arteries: No pulmonary embolism. Breathing motion artifact and attenuation of the distal basilar branches limits evaluation for small or peripheral PE. Aorta: No aneurysm. Lungs: Mild interstitial thickening lower lobes, nonspecific, possible pneumonia. No consolidation. Pleural space: Mild bilateral pleural effusion. No pneumothorax. Heart: Mild to moderate cardiomegaly. No significant pericardial effusion. No evidence of elevated right heart pressures. Bones/joints: No acute fracture. Soft tissues: Unremarkable. Lymph nodes: No enlarged lymph nodes. IMPRESSION: 1. No pulmonary embolism. 2. Mild bilateral pleural effusions and infiltrates are nonspecific, concerning for pneumonia. Electronically signed by: Alisa Dawkins M.D. 05/10/23 00:19 AM Diagnostic Findings EKG as per my interpretation : Rate 90, NSR, normal axis, septal infarct, T wave abnormalities lateral leads
[2023-05-10] MEDS ORDERED: LANTUS PER UNIT CHARGE SQ SCH (03:15)
[2023-05-10] MEDS: MAGNESIUM SULFATE / D5W 1 GM/100 ML BAG IV SCH ×2 (03:41→06:15)
[2023-05-10] MEDS ORDERED: MoRPHine SULFATE 4 MG/ML 1 ML CARP\\VIAL IV PRN (03:49)
[2023-05-10] MEDS ORDERED: DEXTROSE 50% 50 ML SYRINGE IV PRN (03:49)
[2023-05-10] MEDS ORDERED: LORazepam 0.5 MG TAB PO PRN (03:49)
[2023-05-10] MEDS ORDERED: GLUCOSE 10 TAB/TUBE PO PRN (03:49)
[2023-05-10] MEDS ORDERED: GLUCAGON FOR INJ 1 MG VIAL SQ PRN (03:49)
[2023-05-10] MEDS ORDERED: GLUCOSE 40% GEL 15 GM TUBE PO PRN (03:49)
[2023-05-10] MEDS ORDERED: oxyCODONE HCL IR 5 MG TAB (IMMEDIATE RELEASE) PO PRN (03:49)
[2023-05-10] MEDS ORDERED: PROMETHAZINE HCL 12.5 MG in SODIUM CHLORIDE 0.9% 50 ML IV PRN (03:49)
[2023-05-10] MEDS ORDERED: CARBOHYDRATES FOR HYPOGLYCEMIA PO PRN (03:49)
[2023-05-10] MEDS ORDERED: ACETAMINOPHEN 325 MG TAB PO PRN (03:49)
[2023-05-10] MEDS: INSULIN ASPART PER UNIT CHARGE SC SCH ×4 (04:19→21:33)
[2023-05-10 05:00] LABS: Eosinophils # (auto) 0.01 K/uL (0-0.50); Eosinophils % (auto) 0.2 %; Hematocrit (blood only) 38.2 % (37.0-47.0); Hemoglobin 12.7 g/dl (12.0-16.0); Immature Granulocytes # (auto) 0.01 K/uL (0.01-0.20); Immature Granulocytes % (auto) 0.2 %; Lymphocytes # (auto) 0.54 K/uL (1.2-3.4); Mean Corpuscular Hemoglobin 26.8 pg (25.0-34.0); Mean Corpuscular Hgb Conc 33.2 g/dL (32.0-36.0); Mean Corpuscular Volume 80.6 fL (80.0-100.0); Mean Platelet Volume 9.7 fL (9.4-12.4); Monocytes # (auto) 0.06 K/uL (0.11-0.59); Monocytes % (auto) 1.2 %; Neutrophils # (auto) 4.29 K/uL (1.40-6.50); Neutrophils % (auto) 87.4 %; Platelet Count 240 K/uL (130-400); RDW Coefficient of Variation 12.6 % (11.5-14.5); RDW Standard Deviation 36.6 fL (36.4-46.3); Red Blood Count 4.74 M/uL (4.20-5.40); White Blood Count 4.91 K/ul (4.8-10.8)
[2023-05-10 05:34] LABS: BUN Creatinine Ratio 22.8 (10-20); Creatinine Clr Calc Pharmacy 119.1 ml/min; Est GFR (African American) 118.4 ml/min; Est GFR (Non-African American) 102.2 ml/min; Potassium 3.7 mmol/L (3.5-5.1)
[2023-05-10] MEDS ORDERED: LANTUS PER UNIT CHARGE SQ STA (05:34)
[2023-05-10] MEDS ORDERED: ALBUMIN 25% 25 GM/100 ML VIAL IV ONE (06:51)
[2023-05-10 07:12] LABS: Estimated Average Glucose 272 mg/dl; Hemoglobin A1C 11.1 % (4.5-5.6)
--- NOTE | 2023-05-10 07:50 | XRay Report ---
SINGLE VIEW CHEST CLINICAL HISTORY: Atypical chest pain. FINDINGS: An AP, portable, upright chest radiograph is obtained. No prior studies are available for c omparison at the time of dictation. The heart is mildly enlarged. There is pulmonary vascular congest ion. Question trace pleural effusions. Atelectasis is seen at the lung bases. No pneumothorax is seen . The skeletal structures are osteopenic. The bony thorax is grossly intact. IMPRESSION: 1. Mild cardiomegaly with pulmonary vascular congestion. 2. Suspect trace pleural effusions. ACT 112: Negative or not required by law. Electronically signed by: Heamnt Mann M.D. 05/10/2023 7:49 AM
[2023-05-10] MEDS: DOXYCYCLINE HYCLATE 100 MG CAP PO SCH ×2 (08:25→21:36)
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
[2023-05-10] MEDS: ENOXAPARIN INJ 40 MG/0.4 ML SYR SQ SCH (09:05)
--- NOTE | 2023-05-10 16:20 | Communication Note ---
Date of Service: May 10, 2023 Patient seen and examined at bedside as a follow-up of shortness of breath likely secondary to community-acquired pneumonia and acute CHF. We will continu e with Rocephin and doxycycline. Cardiology on board, patient reports feeling better after being diuresed and breathing treatment. Admitting echo with reduced ejection fraction. Patient undergoing GDMT. On exam, patient feels better, on room air, bibasilar rales appreciated. For detailed information on the patient, refer to today's H&P note.
[2023-05-10] MEDS: METOPROLOL TARTRATE 25 MG TAB PO SCH (21:45)
[2023-05-10] MEDS ORDERED: cefTRIAXone SODIUM 2,000 MG in DEXTROSE 5% 50 ML IV SCH (22:00)
[2023-05-10] MEDS: LEVALBUTEROL 1.25 MG/3 ML NEB NEB PRN (22:07)
[2023-05-11] MEDS: lisinopril 5 MG TAB PO SCH (08:44)
[2023-05-11] MEDS: DOXYCYCLINE HYCLATE 100 MG CAP PO SCH (08:44)
[2023-05-11] MEDS: METOPROLOL TARTRATE 25 MG TAB PO SCH (08:44)
[2023-05-11] MEDS: ENOXAPARIN INJ 40 MG/0.4 ML SYR SQ SCH (08:45)
[2023-05-11] MEDS ORDERED: FUROSEMIDE INJ 20 MG/2 ML VIAL IV SCH (09:00)
[2023-05-11] MEDS ORDERED: ATORVASTATIN 20 MG TAB PO SCH (09:00)
[2023-05-11] MEDS: INSULIN ASPART PER UNIT CHARGE SC SCH ×4 (09:09→21:28)
[2023-05-11] MEDS: LANTUS PER UNIT CHARGE SQ SCH (09:09)
[2023-05-11 09:26] LABS: Hematocrit (blood only) 35.4 % (37.0-47.0); Mean Corpuscular Hemoglobin 27.4 pg (25.0-34.0); Mean Corpuscular Hgb Conc 33.9 g/dL (32.0-36.0); Mean Corpuscular Volume 80.8 fL (80.0-100.0); Mean Platelet Volume 9.9 fL (9.4-12.4); Platelet Count 226 K/uL (130-400); RDW Coefficient of Variation 13.1 % (11.5-14.5); RDW Standard Deviation 38.2 fL (36.4-46.3); Red Blood Count 4.38 M/uL (4.20-5.40)
[2023-05-11 10:00] LABS: BUN Creatinine Ratio 37.7 (10-20); Calcium 8.4 mg/dl (8.6-10.3); Chol HDL Ratio 3.3 (0-5); Creatinine Clr Calc Pharmacy 98.3 ml/min; Est GFR (African American) 111.2 ml/min; Phosphorus 4.3 mg/dl (2.5-4.9)
--- NOTE | 2023-05-11 10:31 | Cardiology Progress Note ---
Date of Service May 11, 2023 Assessment & Plan (1) Acute HFrEF (heart failure with reduced ejection fraction): (2) Ischemic cardiomyopathy: (3) Community acquired pneumonia: (4) Acute hyperglycemia: Plan: (1) Acute HFrEF (heart failure with reduced ejection fraction): -Presentation suggests age-indeterminate LAD infarct, likely happened more than a week ago given Q waves on EKG, thinning of the anteroseptum on echocardiogram, severe left ventricular systolic dysfunction noted. No definite angina, mild, but flat troponin elevation noted on presentation. Patient's weight likely not accurate as it was the belted bed scale, standing scale weights ordered. Reviewed with nursing importance of recording her intake and output. For now we will continue furosemide 20 mg IV daily, along with lisinopril 5 mg daily, and we will transition her to metoprolol succinate 25 mg daily. -Recommend delineation of coronary anatomy while inpatient. Will reassess tomorrow to see if she is compensated well enough to allow procedure. Anticipate indication for bridge therapy with wearable LifeVest upon discharge. Patient interested in pursuing this and I will work on the order. (2) Ischemic cardiomyopathy: -as noted above (3) Community acquired pneumonia: -PCR testing positive for rhinovirus/enterovirus. Possible superimposed bacterial pneumonia and therefore she is on doxycycline and Rocephin as well. (4) Acute hyperglycemia: -Acute elevation in glucose noted. Hemoglobin A1c 11.1%. Patient is on Lantus and NovoLog sliding scale. DVT prophylaxis: Subcutaneous Lovenox Admission and Anticipated Discharge Date Admission Date: May 10, 2023 Subjective Patient seen in cardiology follow up. Notes cough productive of green sputum and runny nose. Telemetry reveals SR in the 60s. Review of Systems Review of Systems: All systems reviewed & are unremarkable except as noted in HPI & below Physical Exam Constitutional: WD/WN, vitals as above Eyes: PERRL, conjunctivae normal, anicteric sclerae Respiratory: Auscultation: + diminished lung sounds (Decreased breath sounds bilaterally at the bases); no wheezes Cardiovascular: RRR, no murmur, no edema Gastrointestinal (Abdomen): normal bowel sounds, soft, nontender, no hepatosplenomegaly Neurologic: PERRL, EOMI, accommodation nl, no face palsy, no dysarthria Results & Data Vital Signs (Past 12 Hours) Vital Signs Temp Pulse Pulse Resp BP BP Pulse Ox 08/02/23 08:11 36.6 C 71 16 115/74 96 05/11/23 04:09 36.8 C 86 18 120/68 97 05/10/23 23:45 72 05/10/23 22:50 36.9 C 76 18 100/65 93 O2 Del Method 05/11/23 08:11 Room Air 05/11/23 04:09 Room Air 05/10/23 23:45 05/10/23 22:50 Room Air Laboratory Results Lipids 05/11/23 Range/Units 08:57 Triglycerides 105 (0-150) mg/dl Cholesterol 160 (0-200) mg/dl HDL Cholesterol 49 mg/dl Cholesterol/HDL Ratio 3.3 (0-5) LDL 90 mg/dl CBC 05/11/23 Range/Units 08:57 WBC 5.70 (4.8-10.8) K/ul RBC 4.38 (4.20-5.40) M/uL Hgb 12.0 (12.0-16.0) g/dl Hct 35.4 L (37.0-47.0) % Plt Count 226 (130-400) K/uL Comprehensive Metabolic Panel 05/11/23 Range/Units 08:57 Sodium 132 L (136-145) mmol/L Potassium 4.0 (3.5-5.1) mmol/L Chloride 98 (98-107) mmol/L Carbon Dioxide 27 (21-32) mmol/L BUN 26 H (6-23) mg/dl Creatinine 0.69 (0.6-1.2) mg/dl Glucose 358 H* (70-99(Fasting)) mg/dl Calcium 8.4 L (8.6-10.3) mg/dl (3) Community acquired pneumonia Laterality: unspecified laterality Qualified Code(s): J18.9 - Pneumonia, unspecified organism
[2023-05-11] MEDS ORDERED: PHARMACY GLYCEMIC MGMT CONSULT PRN (10:55)
[2023-05-11] MEDS: LEVALBUTEROL 1.25 MG/3 ML NEB NEB PRN ×2 (11:01→20:12)
--- NOTE | 2023-05-11 11:47 | Pharmacy Report ---
Pharmacy Glycemic Short Note 2 - Date of Service May 11, 2023 - Glycemic Short BSG Results (Last 24 hours): 05/10/23 05/10/23 05/10/23 12:41 17:27 21:10 Glucose POC Glucose 390 H* 192 H 210 H 05/11/23 05/11/23 05/11/23 07:52 08:57 11:34 Glucose 358 H* POC Glucose 263 H 170 H OUTPATIENT ANTIDIABETIC REGIMEN: * n/a, was not using medications for DM * A1c = 11.1% 05/10/23 ASSESSMENT: * Type 2 diabetic, managed in out-pt setting with dietary measures - no medications * Admitted for ADHF and viral PNA with concern for superimposed bacterial PNA * Over the last 24 hrs, 54 units of SQ insulin administered with some improvement in glycemic control * Fasting BSG 263 this AM with 20 units basal insulin on board - will upward taper as pt appears to need 60+ units insulin per day with current diet/stressors * Will base Novolog CF / CR dose upon weight and "moderate" stress level PLAN FOR INPATIENT GLYCEMIC CONTROL: * Basal insulin * Lantus 20 units SQ Q AM * Lantus 0-15 units SQ Q PM per scale: 0 units if BSG less than 130, 10 units if BSG 130-200, 15 units if BSG above 200 * Bolus insulin * NovoLog per scale ACHS and at 0200 tonight * Goal Range: Low 110 mg/dL - High 140 mg/dL * Correction Factor: 20 mg/dL/unit * Nutritional / Prandial insulin per carb ratio of 1 unit per 8 grams CHO consumed
[2023-05-11] MEDS: METOPROLOL SUCC 25MG EXT REL TAB PO SCH (12:04)
--- NOTE | 2023-05-11 13:52 | Hospitalist Progress Note ---
Date of Service May 11, 2023 Assessment & Plan (1) SOB (shortness of breath): (2) Enterovirus infection: (3) Ischemic cardiomyopathy: (4) Acute HFrEF (heart failure with reduced ejection fraction): Plan: 58-year-old woman with history of diabetes mellitus not on any medication, hypertension, hyperlipidemia who presented with cough shortness of breath for about a week. Chest x-ray noted mild cardiomegaly with pulmonary vascular congestion, Chest CTA noted no PE but noted mild bilateral pleural effusion and infiltrates that are nonspecific. Respiratory PCR was positive for enterovirus Troponin was mildly elevated at 4232.5. EKG noted 0.[address] elevation in V1 V2. Echocardiogram noted large size apical septal and anteroseptal wall motion abnormality with hypokinesis to akinesis, associated thinning of the anteroseptal wall, ejection fraction of 25 to 30%, grade 1 diastolic dysfunction and mild mitral regurgitation. No prior echo to compare Based on my evaluation with patient today and review of lab work since admission, my suspicion for bacterial pneumonia is low at this time. Procalcitonin checked today was less than 0.05. Had no leukocytosis or fevers since admission. We will stop antibiotics for now and monitor Patient's symptoms can be explained by the acute heart failure with reduced ejection fraction as well as enterovirus infection. Cardiology evaluation noted Continue Lasix 20 IV daily Continue atorvastatin, lisinopril 5 mg daily, metoprolol succinate 25 mg daily. We will keep n.p.o. past midnight for possible cardiac catheterization by cardiology tomorrow (5) Poorly controlled diabetes mellitus: Plan: Patient reported that she was on metformin in the past but stopped due to GI side effects. Has not been on any antidiabetics since. Reported that she had lost weight since then. Hemoglobin A1c was 11.1 Patient will need insulin. Considering patient does not have insurance and working on medical assistance with the case management, will need affordable insulin 70/30 in discharge. Provided diabetes education salesperson handbags had also seen patient and provided more resources. Will ensure diabetic meds/supplies are provided or prescribed on discharge Needs to follow up closely with PCP DVT PPx - davidx sq I spent a total of 55 minutes coordinating, documenting and providing care for this patient excluding time spent in performance of separately billed services Admission and Anticipated Discharge Date Admission Date: May 10, 2023 Subjective Patient seen and examined. Reports productive cough and exertional dyspnea but stated that this is improving. Denied fever, chills, congestion, chest pain Denied nausea, vomiting, abdominal pain, and diarrhea, constipation Denied dysuria, frequency, urgency, hematuria Physical Exam Constitutional: + well hydrated; no acute distress Eyes: PERRL, conjunctivae normal, anicteric sclerae ENMT: external ear and nose normal, oropharynx normal Respiratory: On room air, in no respiratory distress, diminished breath sounds lung bases Cardiovascular: Rate/Rhythm: regular rate and regular rhythm S1 S2 Gastrointestinal (Abdomen): normal bowel sounds, soft, nontender, no hepatosplenomegaly Musculoskeletal: no cyanosis or clubbing, extremities motor strength 5/5 No pedal edema Neurologic: PERRL, EOMI, accommodation nl, no face palsy, no dysarthria Psychiatric: A+Ox3, euthymic affect Results & Data Results & Data Vital Signs (Past 12 Hours) Vital Signs Temp Pulse Pulse Resp BP BP Pulse Ox 05/11/23 10:00 71 05/11/23 10:00 05/11/23 11:51 36.4 C L 72 14 98/63 L 98 05/11/23 11:02 18 95 05/11/23 08:11 36.6 C 71 16 115/74 96 05/11/23 04:09 36.8 C 86 18 120/68 97 O2 Del Method 05/11/23 10:00 05/11/23 10:00 Room Air 05/11/23 11:51 Room Air 05/11/23 11:02 Room Air 05/11/23 08:11 Room Air 05/11/23 04:09 Room Air Laboratory Results Abnormal lab results 05/10/23 05/10/23 05/11/23 Range/Units 17:27 21:10 07:52 Hct (37.0-47.0) % Sodium (136-145) mmol/L BUN (6-23) mg/dl BUN/Creatinine Ratio (10-20) Glucose (70-99(Fasting)) mg/dl POC Glucose 192 H 210 H 263 H (70-99) mg/dl Calcium (8.6-10.3) mg/dl 05/11/23 05/11/23 05/11/23 Range/Units 08:57 08:57 11:34 Hct 35.4 L (37.0-47.0) % Sodium 132 L (136-145) mmol/L BUN 26 H (6-23) mg/dl BUN/Creatinine Ratio 37.7 H (10-20) Glucose 358 H* (70-99(Fasting)) mg/dl POC Glucose 170 H (70-99) mg/dl Calcium 8.4 L (8.6-10.3) mg/dl
[2023-05-11] MEDS ORDERED: LANTUS PER UNIT CHARGE SQ SCH (21:00)
--- NOTE | 2023-05-11 23:07 | Electrocardiogram Report ---
Test Reason : Blood Pressure : / mmHG Vent. Rate : 091 BPM Atrial Rate : 091 BPM P-R Int : 158 ms QRS Dur : 078 ms QT Int : 348 ms P-R-T Axes : 073 082 091 degrees QTc Int : 428 ms Normal sinus rhythm Septal infarct , age undetermined Abnormal ECG No previous ECGs available Confirmed by Giancarlo Hartman ([id number]) on 05/11/2023 11:07:23 PM Referred By: REFERRED SELF Confirmed By:Giancarlo Hartman
--- NOTE | 2023-05-11 23:08 | Electrocardiogram Report ---
Test Reason : Blood Pressure : / mmHG Vent. Rate : 090 BPM Atrial Rate : 090 BPM P-R Int : 162 ms QRS Dur : 080 ms QT Int : 348 ms P-R-T Axes : 056 042 090 degrees QTc Int : 425 ms Normal sinus rhythm Septal infarct (cited on or before 09-MAY-2023) Nonspecific T wave abnormality Abnormal ECG When compared with ECG of 09-MAY-2023 21:27, No significant change was found Confirmed by Giancarlo Hartman ([id number]) on 05/11/2023 11:08:06 PM Referred By: REFERRED SELF Confirmed By:Giancarlo Hartman
--- NOTE | 2023-05-11 23:12 | Electrocardiogram Report ---
Test Reason : Blood Pressure : / mmHG Vent. Rate : 094 BPM Atrial Rate : 094 BPM P-R Int : 146 ms QRS Dur : 078 ms QT Int : 356 ms P-R-T Axes : 050 006 090 degrees QTc Int : 445 ms Normal sinus rhythm Anteroseptal infarct (cited on or before 09-MAY-2023) Nonspecific T wave abnormality Abnormal ECG When compared with ECG of 09-MAY-2023 21:58, No significant change was found Confirmed by Giancarlo Hartman ([id number]) on 05/11/2023 11:12:15 PM Referred By: REFERRED SELF Confirmed By:Giancarlo Hartman
[2023-05-12] MEDS ORDERED: INSULIN ASPART PER UNIT CHARGE SC ONE (02:00)
[2023-05-12 06:35] LABS: Hematocrit (blood only) 35.5 % (37.0-47.0); Hemoglobin 11.7 g/dl (12.0-16.0); Mean Corpuscular Hemoglobin 27.1 pg (25.0-34.0); Mean Corpuscular Volume 82.2 fL (80.0-100.0); Mean Platelet Volume 9.6 fL (9.4-12.4); Platelet Count 228 K/uL (130-400); RDW Coefficient of Variation 12.9 % (11.5-14.5); Red Blood Count 4.32 M/uL (4.20-5.40); White Blood Count 4.96 K/ul (4.8-10.8)
[2023-05-12 06:53] LABS: Albumin Globulin Ratio 1.4 (0.9-2); Albumin Level 3.5 gm/dl (3.4-5.0); BUN Creatinine Ratio 40.4 (10-20); Bilirubin,Total 0.4 mg/dl (0.2-1.0); Calcium 8.3 mg/dl (8.6-10.3); Creatinine Clr Calc Pharmacy 117.9 ml/min; Est GFR (African American) 118.4 ml/min; Est GFR (Non-African American) 102.2 ml/min; Globulin 2.5 gm/dl (2.5-4.0); Magnesium 1.9 mg/dl (1.7-2.4); Phosphorus 4.1 mg/dl (2.5-4.9)
[2023-05-12] MEDS: METOPROLOL SUCC 25MG EXT REL TAB PO SCH (07:48)
[2023-05-12] MEDS: lisinopril 5 MG TAB PO SCH (07:48)
[2023-05-12] MEDS: ATORVASTATIN 40 MG TAB PO SCH (07:49)
[2023-05-12] MEDS: ENOXAPARIN INJ 40 MG/0.4 ML SYR SQ SCH (07:49)
[2023-05-12] MEDS: INSULIN ASPART PER UNIT CHARGE SC SCH ×4 (09:30→19:58)
[2023-05-12] MEDS ORDERED: LIDOCAINE 1% LOCAL 20 ML VIAL ONE (10:15)
[2023-05-12] MEDS ORDERED: ASPIRIN 81 MG CHEW ONE (10:17)
[2023-05-12] MEDS ORDERED: niCARdipine HCL INJ 2.5 MG/ML 10 ML AMP ONE (10:31)
[2023-05-12] MEDS ORDERED: fentaNYL citrate PF 100 MCG/2 ML VIAL ONE ×2 (10:31→11:24)
[2023-05-12] MEDS ORDERED: MIDAZOLAM HCL 1 MG/ML 2ML VIAL ONE ×2 (10:31→11:22)
[2023-05-12] MEDS ORDERED: HEPARIN (PORCINE) 1000 UNIT/ML 10 ML (CATH LAB USE ONLY) ONE ×3 (10:31→12:14)
[2023-05-12] MEDS ORDERED: NITROGLYCERIN/D5W 100MCG/ML 20ML SYR ONE (10:32)
--- NOTE | 2023-05-12 10:52 | Pre Anesthesia Assessment ---
Date of Service May 12, 2023 Pre Sedation Assessment Vital Signs Temp Pulse Pulse Resp BP BP Pulse Ox 05/12/23 10:15 71 16 121/77 99 05/12/23 08:11 97.9 F 76 16 148/92 H 97 05/12/23 03:10 98.1 F 70 18 120/78 98 05/12/23 00:00 97.9 F 77 18 97/62 L 98 05/11/23 23:33 77 05/11/23 20:50 05/11/23 20:10 97.9 F 76 18 100/64 99 05/11/23 20:13 76 18 99 05/11/23 16:35 98.1 F 68 16 99/65 L 98 05/11/23 11:51 97.5 F L 72 14 98/63 L 98 05/11/23 11:02 18 95 O2 Del Method 05/12/23 10:15 Room Air 05/12/23 08:11 Room Air 05/12/23 03:10 Room Air 05/12/23 00:00 Room Air 05/11/23 23:33 05/11/23 20:50 Room Air 05/11/23 20:10 Room Air 05/11/23 20:13 Room Air 05/11/23 16:35 Room Air 05/11/23 11:51 Room Air 05/11/23 11:02 Room Air Cardiovascular RRR, no murmur, no edema Respiratory normal respiratory effort, lungs clear to auscultation Pre-Sedation Airway Assessment Smoking Status: Current some day smoker Hx Sleep Apnea: No Hx Difficult Intubation: No Short, Thick Neck: No Thyromental Distance: > or= 3.5 Finger Breadths Oral Cavity: + WNL Mallampati Class: II ASA: ASA3 NPO Status Date of Last Intake of Fluids: 05/11/23 Time of Last Intake of Fluids: 21:00 Date of Last Intake of Solid Food: 05/11/23 Time of Last Intake of Solid Foods: 23:30 Procedure Planning Contraindications for Sedation: none Current Medications Reviewed: Yes Notes The planned sedation has been discussed with the patient. Informed Consent was obtained. I have identified the patient, determined the appropriateness of sedation and have assessed the patient immediately prior to the procedure. All medicine(s) and interventions are by my order.
[2023-05-12] MEDS ORDERED: CLOPIDOGREL BISULFATE 300 MG TAB ONE (12:25)
--- NOTE | 2023-05-12 12:39 | Post Anesthesia Assessment ---
Date of Service May 12, 2023 Post Sedation Assessment Vital Signs Temp Pulse Pulse Resp BP BP Pulse Ox 05/12/23 10:54 76 05/12/23 10:15 71 16 121/77 99 05/12/23 08:11 97.9 F 76 16 148/92 H 97 05/12/23 03:10 98.1 F 70 18 120/78 98 05/12/23 00:00 97.9 F 77 18 97/62 L 98 05/11/23 23:33 77 05/11/23 20:50 05/11/23 20:10 97.9 F 76 18 100/64 99 05/11/23 20:13 76 18 99 05/11/23 16:35 98.1 F 68 16 99/65 L 98 O2 Del Method 05/12/23 10:54 05/12/23 10:15 Room Air 05/12/23 08:11 Room Air 05/12/23 03:10 Room Air 05/12/23 00:00 Room Air 05/11/23 23:33 05/11/23 20:50 Room Air 05/11/23 20:10 Room Air 05/11/23 20:13 Room Air 05/11/23 16:35 Room Air Recovery Score Activity: Moves 4 extremities Respiration: Deep Breath/Cough Circulation: +/-20% PreAnes Value Consciousness: Fully Awake Oxygen Saturation: O2 needed for >90% Discharge Sedation Level of Care: Fast Track Phase II Post Sedation Plan On clinical assessment, the patient appears to have tolerated the sedation without complications. Patient is recovering as anticipated. Patient will continue to be monitored by nursing and may be discharged when sedation discharge criteria are met per below protocol. Upon Completions of procedure up to 15 minutes continue every 5 minute vital signs and the P.A.R. score; then discharge to a Phase I or Fast Track to Phase II per the following guidelines: * Discharge Patient to appropriate Phase II area if PAR is 8 or greater or return to pre- procedure baseline. The post - procedure orders will be as directed. * If PAR score is less than 8 or not return to pre-procedure baseline then patient will follow Phase I monitoring till PAR is reached for Phase II. The Phase I may be done in procedure room or may call to secure a Phase I area. * If naloxone or flumazenil are used for reversal, hold in Phase I for continued monitoring from when last reversal dose was given for a minimum of 60 minutes or longer pending the nurse and/or physician discretion of patient condition before discharge to Phase II. Please call the Sedation Physician to re-evaluate and complete post-note for discharge to Phase II area. Do NOT discharge from procedure sedation or Phase 1 until post- sedation evaluation note is complete by procedure /sedation MD Sedation Discharge Instructions to be given to the patient at discharge to home.
--- NOTE | 2023-05-12 12:58 | Cardiac Catheterization ---
[facility] Data: Client Delivery Manager Cardiac Status Clinical evaluation leading to the procedure CAD Presenation: Unstable angina Anginal Classification: CCS III Heart Failure: NYHA Class: CCS IV Diagnostic Physicians Name: Bhanu Dawkins MD Closure Device Recommendations: PCI without planned CABG Cardiac Cath Procedure Full Procedure Date May 12, 2023 Pre-Procedure Diagnosis Pre-Procedure Diagnosis: Cardiomyopathy AUC Score AUC Score: 8 Post-Procedure Diagnosis Post-Procedure Diagnosis: Severe CAD, Successful PCI and Normal Intracardiac Pressures Procedure(s) Performed Procedure(s) Performed: Coronary Angiography, Left Heart Cath, Drug Eluting Stent and IVUS Cloth Covered Helmet Puller Bhanu Dawkins MD Downstream Biomanufacturing Technician(s) Lai Estimated Blood Loss Estimated Blood Loss: 15 Medication(s) Medication(s): Clopidogrel, Fentanyl, Heparin, Lidocaine 1%, Nicardipine, Nitroglycerin and Versed Summary of Findings Indication: New severe LV dysfunction with LAD wall motion abnormality, acute systolic heart failure Access: 6 Fr right radial artery Catheters: [place], EBU 3.5 guide Findings: LM -Short, normal caliber, no significant disease LAD -medium caliber vessel, angulated takeoff, calcified proximally with 50% proximal stenosis, 98% hazy mid segment stenosis, 30 to 40% distal stenosis, myocardial bridging in very distal vessel prior to wrapping around apex. Very small D1 with ostial disease Circumflex -large caliber, angulated takeoff, 30% proximal, small distal circumflex with 70% stenosis after takeoff of large OM 2. Large OM 2 with proximal luminal irregularities. RCA -dominant, medium caliber 20% proximal stenosis, 30% latemid stenosis. 40 to 50% distal stenosis extending across bifurcation with small PDA and into right PLB 1. LVEDP -16 -- PCI -- Antithrombotic therapy: Heparin, clopidogrel Procedure: Left main cannulated with EBU 3.5 guide Pre-procedure flow ANAHY 2-3 Supply Coordinator 50 wire passed across lesion into distal vessel Mid LAD lesion predilated with 2.5 compliant balloon Elias IVUS catheter placed into mid segment. Pullback revealed mildly calcified mid segment disease. Intermediate ostial/proximal LAD disease with circumferential calcium (60% by IVUS, CSA at 5.4 mm). Short left main without significant disease. Dilated lesion stented with 3.0 x 26 mm [place] drug-eluting stent Stent post-dilated with 3.0 noncompliant balloon Post stent implant noted to have no reflow in apical LAD with new occlusion at site of small diagonal. Repeat IVUS of LAD revealed no apparent thrombus or dissection at site of occlusion. Stent well expanded with no apparent edge complications. IC vasodilators administered for spasm without improvement. Apical LAD rewired long whisper wire. IC nitroglycerin/nicardipine administered distal to occlusion via OTW balloon Distal LAD gently dilated with 2.0 balloon to low atmospheres Post post balloon inflation ANAHY 3 flow, stent appeared well expanded with minimal residual stenosis and no other apparent cardiac complications. Arterial Closure: TR band Summary: 1. Multivessel coronary artery disease 98% mid LAD stenosis -60% proximal LAD (by IVUS) 70% stenosis in small distal circumflex 40 to 50% distal RCA extending into RPLB1 2. Normal intracardiac filling pressure 3. Successful PCI of mid LAD with single drug-eluting stent (3.0 x 26 mm Gurpreet). Recommendations: To PCU for continued monitoring Loaded with clopidogrel 600 mg in Client Delivery Manager Continue dual-antiplatelet therapy for at least 1 year Medical management of residual CAD Continue GDMT for ICM, and ASCVD risk factor modification Consult cardiac Rehab Hemodynamics Rest Ao:: 103/59/85 Final Ao: 99/60/77 LV: 89/16 Recommendations Recommendations: PCI without planned CABG Specimens Specimens: None Radiation Exposure (mGy) 4403 Contrast (mls) 100 Anesthesia Moderate 3094-9666 Procedural Complication(s) None Disposition PCU I attest to the content of the Intraoperative Record and any orders documented therein. Any exceptions are noted below. [facility] Card Cath Procedure Codes Cardiac Catheterization Procedure 1: Cardiovascular Cath Procedures: 27497 Coronaries and LHC (+/-LV) Therapeutic Services & Ancillary Procedure 1: Cardiovascular Tx and Anc Procedures: 84142 IV Ultrasound (Coronary or Graft) Moderate Sedation Procedure 1: Sedation/Anesthesia: 75980 Mod Sedation by the same physician;Init15 Min Child Age 5 & Up Procedure 2: Sedation/Anesthesia: 98770 Mod Sedation by the same physician; Ea [id number] Minutes Stenting Procedure 1: Cardiovascular Stent Procedures: 64306 Perc transcatheter placement of intracoronary stent(s), with ang PG Care Time/CCT Total # of Minutes Spent Total Time Spent with Patient: Total time spent is greater than 50% in coordination of care (as documented) at patient's floor/unit and/or counseling patient:
[2023-05-12] MEDS: LANTUS PER UNIT CHARGE SQ SCH (13:30)
[2023-05-12] MEDS ORDERED: LANTUS PER UNIT CHARGE SC SCH (14:00)
--- NOTE | 2023-05-12 15:57 | Cardiology Progress Note ---
Date of Service May 12, 2023 Assessment & Plan (1) Acute HFrEF (heart failure with reduced ejection fraction): (2) Ischemic cardiomyopathy: (3) Community acquired pneumonia: (4) Acute hyperglycemia: Plan: Patient status post drug-eluting stent implantation to the proximal LAD without complication. Discussed importance of continuing dual antiplatelet therapy uninterrupted for minimum of 1 year post PCI. Continue heart failure treatment with ABIMBOLA inhibitor, furosemide and beta-lashonda (metoprolol succinate). Add low-dose Aldactone pending review of a.m. labs Monitor fluid balance, GFR, electrolytes, and daily weights. Continue high intensity statin therapy LifeVest ordered. Admission and Anticipated Discharge Date Admission Date: May 10, 2023 Subjective Patient seen examined postcardiac catheterization. Drug-eluting stent implanted to the proximal LAD without complication. Feeling well post procedure. Denies chest pain or shortness of breath. Radial band in place without bleeding. Review of Systems Review of Systems: All systems reviewed & are unremarkable except as noted in Subjective Physical Exam Constitutional: well nourished; no acute distress Respiratory: no respiratory distress, no labored breathing and no retractions Cardiovascular: Rate/Rhythm: regular rate and regular rhythm Heart Sounds: normal S1; + abnormal S2 and no murmur Extremities: no edema Gastrointestinal (Abdomen): Inspection/Auscultation: abdomen normal to inspection and normal bowel sounds; abdomen not distended Neurologic: CN's II-XI intact bilaterally and moves all extremities Psychiatric: A+Ox3, euthymic affect Results & Data Vital Signs (Past 12 Hours) Vital Signs Temp Pulse Pulse Pulse Resp BP BP 05/12/23 14:29 73 16 138/87 05/12/23 13:59 70 18 115/57 L 05/12/23 13:44 69 18 142/86 H 05/12/23 13:29 68 18 120/74 05/12/23 13:14 36.7 C 61 18 119/79 05/12/23 12:59 65 18 104/70 05/12/23 12:42 64 18 107/78 05/12/23 10:54 76 05/12/23 10:15 71 16 121/77 05/12/23 08:11 36.6 C 76 16 148/92 H Pulse Ox O2 Del Method 05/12/23 14:29 94 Room Air 05/12/23 13:59 96 Room Air 05/12/23 13:44 95 Room Air 05/12/23 13:29 97 Room Air 05/12/23 13:14 95 Room Air 05/12/23 12:59 96 Room Air 05/12/23 12:42 95 Room Air 05/12/23 10:54 05/12/23 10:15 99 Room Air 05/12/23 08:11 97 Room Air Laboratory Results Cardiac Enzymes 05/12/23 Range/Units 06:05 AST 13 (13-39) U/L CBC 05/12/23 Range/Units 06:05 WBC 4.96 (4.8-10.8) K/ul RBC 4.32 (4.20-5.40) M/uL Hgb 11.7 L (12.0-16.0) g/dl Hct 35.5 L (37.0-47.0) % Plt Count 228 (130-400) K/uL Comprehensive Metabolic Panel 05/12/23 Range/Units 06:05 Sodium 134 L (136-145) mmol/L Potassium 4.0 (3.5-5.1) mmol/L Chloride 101 (98-107) mmol/L Carbon Dioxide 27 (21-32) mmol/L BUN 23 (6-23) mg/dl Creatinine 0.57 L (0.6-1.2) mg/dl Glucose 146 H (70-99(Fasting)) mg/dl Calcium 8.3 L (8.6-10.3) mg/dl AST 13 (13-39) U/L ALT 13 (7-52) U/L Alkaline Phosphatase 59 (34-104) U/L Total Protein 6.0 (6.0-8.3) gm/dl Albumin 3.5 (3.4-5.0) gm/dl Intake and Output 05/12/23 05/12/23 05/12/23 06:59 14:59 22:59 Output Total 50 / 200 Balance -0 Output: Urine 50 / 200 Other: Other Intake Source NPO Patient NPO # Unmeasured Voids 1 Weight 88 kg Weight Measurement Method Standing Scale (3) Community acquired pneumonia Laterality: unspecified laterality Qualified Code(s): J18.9 - Pneumonia, unspecified organism
--- NOTE | 2023-05-12 16:01 | Hospitalist Progress Note ---
Date of Service May 12, 2023 Assessment & Plan (1) SOB (shortness of breath): (2) Enterovirus infection: (3) Ischemic cardiomyopathy: (4) Acute HFrEF (heart failure with reduced ejection fraction): Plan: 58-year-old woman with history of diabetes mellitus not on any medication, hypertension, hyperlipidemia who presented with cough shortness of breath for about a week. Chest x-ray noted mild cardiomegaly with pulmonary vascular congestion, Chest CTA noted no PE but noted mild bilateral pleural effusion and infiltrates that are nonspecific. Respiratory PCR was positive for enterovirus Troponin was mildly elevated at 4232.5. EKG noted 0.[address] elevation in V1 V2. Echocardiogram noted large size apical septal and anteroseptal wall motion abnormality with hypokinesis to akinesis, associated thinning of the anteroseptal wall, ejection fraction of 25 to 30%, grade 1 diastolic dysfunction and mild mitral regurgitation. No prior echo to compare Possible acute myocardial infarction within the past 4 weeks s/p cardiac catheterization today which showed Multivessel Coronary artery disease. Had PCI to mLAD with single HARRIETT Will be on DAPT for 1 year Cardiology on board. Will follow up Cardiology about GDMT and lifevest Continue Lasix 20 IV daily Continue atorvastatin, lisinopril 5 mg daily, metoprolol succinate 25 mg daily. (5) Poorly controlled diabetes mellitus: Plan: Patient reported that she was on metformin in the past but stopped due to GI side effects. Has not been on any antidiabetics since. Reported that she had lost weight since then. Hemoglobin A1c was 11.1 Considering patient does not have insurance and working on medical assistance with the case management, will need affordable insulin 70/30 in discharge. Provided more diabetes education today. Lifestyle modification education paraeducator had also seen patient and provided more resources. Will ensure diabetic meds/supplies are provided or prescribed on discharge Needs to follow up closely with PCP CM working on getting patient Medical Assistance Will need PCP set up Will need scripts for meds on discharge Will monitor vaginal bleed. May be related to lovenox Will need to follow up PENAL OFFICER outpatient DVT PPx - lovenox sq I spent a total of 50 minutes coordinating, documenting and providing care for this patient excluding time spent in performance of separately billed services Admission and Anticipated Discharge Date Admission Date: May 10, 2023 Subjective Patient seen and examined after cardiac catheterization Reports cough and exertional dyspnea improving Denied fever, chills, chest pain, nausea, vomiting, abd pain, diarrhea Denied dysuria, freq, urgency Reported small vaginal bleed earlier today. Denied dizziness Physical Exam Constitutional: + well hydrated; no acute distress Eyes: PERRL, conjunctivae normal, anicteric sclerae ENMT: external ear and nose normal, oropharynx normal Respiratory: normal respiratory effort, lungs clear to auscultation Cardiovascular: Rate/Rhythm: regular rate and regular rhythm S1 S2 Gastrointestinal (Abdomen): normal bowel sounds, soft, nontender, no hepatosplenomegaly Musculoskeletal: no cyanosis or clubbing, extremities motor strength 5/5 No pedal edema Neurologic: PERRL, EOMI, accommodation nl, no face palsy, no dysarthria Psychiatric: A+Ox3, euthymic affect Results & Data Results & Data Vital Signs (Past 12 Hours) Vital Signs Temp Pulse Pulse Pulse Resp BP BP 05/12/23 15:53 36.8 C 16 L 72 16 123/81 05/12/23 14:29 73 16 138/87 05/12/23 13:59 70 18 115/57 L 05/12/23 13:44 69 18 142/86 H 05/12/23 13:29 68 18 120/74 05/12/23 13:14 36.7 C 61 18 119/79 05/12/23 12:59 65 18 104/70 05/12/23 12:42 64 18 107/78 05/12/23 10:54 76 05/12/23 10:15 71 16 121/77 05/12/23 08:11 36.6 C 76 16 148/92 H Pulse Ox O2 Del Method 05/12/23 15:53 95 Room Air 05/12/23 14:29 94 Room Air 05/12/23 13:59 96 Room Air 05/12/23 13:44 95 Room Air 05/12/23 13:29 97 Room Air 05/12/23 13:14 95 Room Air 05/12/23 12:59 96 Room Air 05/12/23 12:42 95 Room Air 05/12/23 10:54 05/12/23 10:15 99 Room Air 05/12/23 08:11 97 Room Air Laboratory Results Abnormal lab results 05/11/23 05/12/23 05/12/23 Range/Units 21:08 02:59 06:05 Hgb 11.7 L (12.0-16.0) g/dl Hct 35.5 L (37.0-47.0) % Activ Coag Time Kaolin (94-140) SECONDS Sodium (136-145) mmol/L Creatinine (0.6-1.2) mg/dl BUN/Creatinine Ratio (10-20) Glucose (70-99(Fasting)) mg/dl POC Glucose 186 H 189 H (70-99) mg/dl Calcium (8.6-10.3) mg/dl 05/12/23 05/12/23 05/12/23 Range/Units 06:05 07:54 11:37 Hgb (12.0-16.0) g/dl Hct (37.0-47.0) % Activ Coag Time Kaolin 257 H (94-140) SECONDS Sodium 134 L (136-145) mmol/L Creatinine 0.57 L (0.6-1.2) mg/dl BUN/Creatinine Ratio 40.4 H (10-20) Glucose 146 H (70-99(Fasting)) mg/dl POC Glucose 162 H (70-99) mg/dl Calcium 8.3 L (8.6-10.3) mg/dl 05/12/23 05/12/23 Range/Units 11:58 13:20 Hgb (12.0-16.0) g/dl Hct (37.0-47.0) % Activ Coag Time Kaolin 257 H (94-140) SECONDS Sodium (136-145) mmol/L Creatinine (0.6-1.2) mg/dl BUN/Creatinine Ratio (10-20) Glucose (70-99(Fasting)) mg/dl POC Glucose 143 H (70-99) mg/dl Calcium (8.6-10.3) mg/dl
[2023-05-12 18:27] LABS: Hematocrit (blood only) 38.4 % (37.0-47.0); Hemoglobin 12.5 g/dl (12.0-16.0); Mean Corpuscular Hemoglobin 26.9 pg (25.0-34.0); Mean Corpuscular Hgb Conc 32.6 g/dL (32.0-36.0); Mean Corpuscular Volume 82.8 fL (80.0-100.0); Mean Platelet Volume 9.6 fL (9.4-12.4); Platelet Count 252 K/uL (130-400); RDW Standard Deviation 39.3 fL (36.4-46.3); Red Blood Count 4.64 M/uL (4.20-5.40); White Blood Count 5.68 K/ul (4.8-10.8)
--- NOTE | 2023-05-12 23:39 | Ultrasound Report ---
Exam(s): US PELVIS EXAM: US Pelvis Transabdominal, Complete CLINICAL HISTORY: Reason for exam: Vaginal bleeding. TECHNIQUE: Real-time complete transabdominal pelvic ultrasound with image documentation. COMPARISON: No relevant prior studies available. FINDINGS: Uterus/cervix: Heterogeneous endometrial mass measuring 4.7 cm. Uterus measures 10.1 x 6.6 x 7.3 cm. Right ovary: Right ovary not visualized, obscured by bowel gas. Left ovary: Left ovary not visualized, obscured by bowel gas. Free fluid: No free fluid. Bladder: Unremarkable as visualized. Wall is normal thickness for degree of distention. IMPRESSION: 1. Heterogeneous endometrial mass measuring 4.7 cm, raising concern for malignancy. Consider pelvic MRI for further characterization. METER SUPERVISOR evaluation recommended. Electronically signed by: Joe Champion M.D. 05/12/23 23:38 PM
[2023-05-13 05:53] LABS: Hematocrit (blood only) 38.6 % (37.0-47.0); Hemoglobin 12.7 g/dl (12.0-16.0); Mean Corpuscular Hemoglobin 26.8 pg (25.0-34.0); Mean Corpuscular Hgb Conc 32.9 g/dL (32.0-36.0); Mean Corpuscular Volume 81.4 fL (80.0-100.0); Mean Platelet Volume 9.5 fL (9.4-12.4); Platelet Count 250 K/uL (130-400); RDW Standard Deviation 38.1 fL (36.4-46.3); Red Blood Count 4.74 M/uL (4.20-5.40); White Blood Count 4.71 K/ul (4.8-10.8)
[2023-05-13 06:10] LABS: BUN Creatinine Ratio 23.6 (10-20); Calcium 8.6 mg/dl (8.6-10.3); Creatinine Clr Calc Pharmacy 121.2 ml/min; Est GFR (African American) 119.8 ml/min; Est GFR (Non-African American) 103.4 ml/min; Potassium 4.2 mmol/L (3.5-5.1)
--- NOTE | 2023-05-13 06:35 | Electrocardiogram Report ---
Test Reason : Blood Pressure : / mmHG Vent. Rate : 076 BPM Atrial Rate : 076 BPM P-R Int : 154 ms QRS Dur : 088 ms QT Int : 400 ms P-R-T Axes : 072 066 106 degrees QTc Int : 450 ms Normal sinus rhythm Possible Left atrial enlargement Low voltage QRS Septal infarct (cited on or before 09-MAY-2023) Nonspecific T wave abnormality Abnormal ECG When compared with ECG of 09-MAY-2023 23:07, Questionable change in QRS axis Nonspecific T wave abnormality now evident in Anterior leads Confirmed by Giancarlo Hartman ([id number]) on 05/13/2023 6:35:31 AM Referred By: REFERRED SELF Confirmed By:Giancarlo Hartman
[2023-05-13] MEDS: ASPIRIN 81 MG ECTAB PO SCH (09:20)
[2023-05-13] MEDS: lisinopril 5 MG TAB PO SCH (09:20)
[2023-05-13] MEDS: CLOPIDOGREL BISULFATE 75 MG TAB PO SCH (09:20)
[2023-05-13] MEDS: METOPROLOL SUCC 25MG EXT REL TAB PO SCH (09:20)
[2023-05-13] MEDS: ATORVASTATIN 40 MG TAB PO SCH (09:21)
[2023-05-13] MEDS: LANTUS PER UNIT CHARGE SQ SCH (09:26)
[2023-05-13] MEDS: INSULIN ASPART PER UNIT CHARGE SC SCH ×4 (09:26→21:10)
[2023-05-13] MEDS: SPIRONOLACTONE 12.5 MG TAB PO SCH (11:07)
--- NOTE | 2023-05-13 11:37 | OB/GYN Consultation ---
Date of Consultation May 13, 2023 Assessment & Plan (1) Post-menopause bleeding: needs endometrial biopsy as outpatient in office when stable History of Present Illness Reason for Consultation: Vaginal bleeding Requesting Physician: Dr. Ang Attending Physician: Dahiana Fiugeroa MD History of Present Illness 58-year-old female Postmenopausal for approximately 6 years She has not been seen by any gynecologistt recently. Postmenopausal for approximately 6 yearsPresents to the hospital for heart catheterization which was done by cardiology Noted to have vaginal bleeding starting yesterday passing clots. She has been on blood thinner she has had no previous vaginal bleeding pelvic ultrasound during her hospital stay here which revealed a large endometrial mass 4.7 cm.Patient stated that she has not had any pain or cramps bleeding that she is having Clots That Started This Week. 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 Machine 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: No Beliefs That Will Affect Care: None Current Living Situation: Alone and Spouse Feels Safe at Home: Yes Safety Concerns: Feels Safe At This Time Assistive Devices: None Assistive Devices Comment: reading glasses Physical Exam Constitutional: WD/WN, vitals as above Gastrointestinal (Abdomen): normal bowel sounds, soft, nontender, no hepatosplenomegaly Results & Data Vital Signs (Past 12 Hours) Vital Signs Temp Pulse Pulse Resp BP Pulse Ox O2 Del Method 05/13/23 10:45 71 05/13/23 08:04 37.1 C 74 19 119/70 96 Room Air 05/13/23 03:37 Room Air 05/13/23 02:44 36.8 C 72 16 119/74 97 Room Air 05/13/23 00:05 36.8 C 70 18 107/73 95 Room Air Diagnostic Findings endometrial mass 4.7 cm
--- NOTE | 2023-05-13 12:15 | Pharmacy Report ---
Pharmacy Glycemic Short Note 2 - Date of Service May 13, 2023 - Glycemic Short BSG Results (Last 24 hours): 05/12/23 05/12/23 05/12/23 13:20 16:22 19:54 Glucose POC Glucose 143 H 143 H 95 05/13/23 05/13/23 05/13/23 05:21 07:52 11:51 Glucose 108 H POC Glucose 115 H 132 H OUTPATIENT ANTIDIABETIC REGIMEN: * n/a, was not using medications for DM * A1c = 11.1% 05/10/23 ASSESSMENT: 05/13/23 * Patient's BSGs yesterday were [phone] mg/dL. Patient received 36 units of insulin (30 units of basal and 6 units of bolus). Patient was NPO yesterday until lunch for a procedure. * Fasting today is 115 mg/dL. * Decrease basal by 30% to 20 units daily due to downtrending fasting. * Loosen Novolog. BACKGROUND * Type 2 diabetic, managed in out-pt setting with dietary measures - no medications * Admitted for ADHF and viral PNA with concern for superimposed bacterial PNA * Over the last 24 hrs, 54 units of SQ insulin administered with some improvement in glycemic control * Fasting BSG 263 this AM with 20 units basal insulin on board - will upward taper as pt appears to need 60+ units insulin per day with current diet/stressors * Will base Novolog CF / CR dose upon weight and "moderate" stress level PLAN FOR INPATIENT GLYCEMIC CONTROL: * Basal insulin * Lantus 20 units SQ Q AM * Bolus insulin * NovoLog per scale ACHS and at 0200 tonight * Goal Range: Low 110 mg/dL - High 140 mg/dL * Correction Factor: 25 mg/dL/unit * Nutritional / Prandial insulin per carb ratio of 1 unit per 8 grams CHO consumed
--- NOTE | 2023-05-13 12:50 | Hospitalist Progress Note ---
Date of Service May 13, 2023 Assessment & Plan (1) SOB (shortness of breath): (2) Enterovirus infection: (3) Ischemic cardiomyopathy: (4) Acute HFrEF (heart failure with reduced ejection fraction): Plan: 58-year-old woman with history of diabetes mellitus not on any medication, hypertension, hyperlipidemia who presented with cough shortness of breath for about a week. Chest x-ray noted mild cardiomegaly with pulmonary vascular congestion, Chest CTA noted no PE but noted mild bilateral pleural effusion and infiltrates that are nonspecific. Respiratory PCR was positive for enterovirus Troponin was mildly elevated at 4232.5. EKG noted 0.[address] elevation in V1 V2. Echocardiogram noted large size apical septal and anteroseptal wall motion abnormality with hypokinesis to akinesis, associated thinning of the anteroseptal wall, ejection fraction of 25 to 30%, grade 1 diastolic dysfunction and mild mitral regurgitation. No prior echo to compare Possible acute myocardial infarction within the past 4 weeks s/p cardiac catheterization on 05/12/23 which showed Multivessel Coronary artery disease. Had PCI to mLAD with single HARRIETT Will be on DAPT for 1 year Cardiology on board. Continue atorvastatin, lisinopril 5 mg daily, metoprolol succinate 25 mg daily. Started on spironolactone 12.5mg daily CM working on lifevest (5) Poorly controlled diabetes mellitus: Plan: Patient reported that she was on metformin in the past but stopped due to GI side effects. Has not been on any antidiabetics since. Reported that she had lost weight since then. Hemoglobin A1c was 11.1 Considering patient does not have insurance and working on medical assistance with the case management, will need affordable insulin 70/30 in discharge. associate store director had also seen patient and provided more resources. Will ensure diabetic meds/supplies are provided or prescribed on discharge Needs to follow up closely with PCP (6) Post-menopause bleeding: Plan: Patient developed vaginal bleeding on 05/12/23 Hb has remained stable Pelvis USS noted heterogenous endometrial mass suspicious for malignancy GRINDING ROOM INSPECTOR evaluation today noted Will need to follow up with GRINDING ROOM INSPECTOR for endometrial biopsy CM working on getting patient Medical Assistance Will need PCP set up Will need scripts for meds on discharge DVT PPx - Ambulate I spent a total of 45 minutes coordinating, documenting and providing care for this patient excluding time spent in performance of separately billed services Admission and Anticipated Discharge Date Admission Date: May 10, 2023 Subjective Patient seen and examined Reports cough continues to improve No SOB today Denied chest pain Still has intermittent vaginal bleed Denied nausea, vomiting, abd pain, diarrhea Denied dysuria, freq, hematuria Denied fatigue, palpitation, dizziness Physical Exam Constitutional: + well hydrated; no acute distress Eyes: PERRL, conjunctivae normal, anicteric sclerae ENMT: external ear and nose normal, oropharynx normal Respiratory: normal respiratory effort, lungs clear to auscultation Cardiovascular: Rate/Rhythm: regular rate and regular rhythm S1 S2 Gastrointestinal (Abdomen): normal bowel sounds, soft, nontender, no hepatosplenomegaly Musculoskeletal: no cyanosis or clubbing, extremities motor strength 5/5 Neurologic: PERRL, EOMI, accommodation nl, no face palsy, no dysarthria Psychiatric: A+Ox3, euthymic affect Results & Data Results & Data Vital Signs (Past 12 Hours) Vital Signs Temp Pulse Pulse Resp BP Pulse Ox O2 Del Method 05/13/23 12:07 36.3 C L 72 19 123/78 98 Room Air 05/13/23 10:45 71 05/13/23 08:04 37.1 C 74 19 119/70 96 Room Air 05/13/23 03:37 Room Air 05/13/23 02:44 36.8 C 72 16 119/74 97 Room Air Laboratory Results Abnormal lab results 05/12/23 05/12/23 05/12/23 Range/Units 11:37 11:58 13:20 WBC (4.8-10.8) K/ul Activ Coag Time Kaolin 257 H 257 H (94-140) SECONDS Sodium (136-145) mmol/L Creatinine (0.6-1.2) mg/dl BUN/Creatinine Ratio (10-20) Glucose (70-99(Fasting)) mg/dl POC Glucose 143 H (70-99) mg/dl 05/12/23 05/13/23 05/13/23 Range/Units 16:22 05:21 05:21 WBC 4.71 L (4.8-10.8) K/ul Activ Coag Time Kaolin (94-140) SECONDS Sodium 134 L (136-145) mmol/L Creatinine 0.55 L (0.6-1.2) mg/dl BUN/Creatinine Ratio 23.6 H (10-20) Glucose 108 H (70-99(Fasting)) mg/dl POC Glucose 143 H (70-99) mg/dl 05/13/23 05/13/23 Range/Units 07:52 11:51 WBC (4.8-10.8) K/ul Activ Coag Time Kaolin (94-140) SECONDS Sodium (136-145) mmol/L Creatinine (0.6-1.2) mg/dl BUN/Creatinine Ratio (10-20) Glucose (70-99(Fasting)) mg/dl POC Glucose 115 H 132 H (70-99) mg/dl
--- NOTE | 2023-05-13 13:17 | Cardiology Progress Note ---
Date of Service May 13, 2023 Assessment & Plan (1) Acute HFrEF (heart failure with reduced ejection fraction): (2) Status post insertion of drug-eluting stent into left anterior descending (LAD) artery: (3) Ischemic cardiomyopathy: (4) Community acquired pneumonia: (5) Acute hyperglycemia: Plan: Patient status post drug-eluting stent implantation to the proximal LAD without complication. Discussed importance of continuing dual antiplatelet therapy uninterrupted for minimum of 1 year post PCI. Continue heart failure treatment with ABIMBOLA inhibitor, furosemide and beta-lashonda (metoprolol succinate). Add low-dose Aldactone today. Repeat basic metabolic panel in 1 week. Continue high intensity statin therapy LifeVest ordered. Will be fitted later this afternoon. Afterward, patient may be discharged home from a cardiovascular perspective. Outpatient cardiology follow-up in 1 week. Admission and Anticipated Discharge Date Admission Date: May 10, 2023 Subjective Patient seen examined the bedside. Feeling well today. Denies chest pain or shortness of breath. Aldactone added this AM. No dysrhythmia on telemetry. Anxious for discharge. Awaiting placement of LifeVest. Review of Systems Review of Systems: All systems reviewed & are unremarkable except as noted in Subjective Physical Exam Constitutional: well nourished; no acute distress Respiratory: no respiratory distress, no labored breathing and no retractions Cardiovascular: Rate/Rhythm: regular rate and regular rhythm Heart Sounds: normal S1; + abnormal S2 and no murmur Extremities: no edema Gastrointestinal (Abdomen): Inspection/Auscultation: abdomen normal to inspection and normal bowel sounds; abdomen not distended Neurologic: CN's II-XI intact bilaterally and moves all extremities Psychiatric: A+Ox3, euthymic affect Results & Data Vital Signs (Past 12 Hours) Vital Signs Temp Pulse Pulse Resp BP Pulse Ox O2 Del Method 05/13/23 12:07 36.3 C L 72 19 123/78 98 Room Air 05/13/23 10:45 71 05/13/23 08:04 37.1 C 74 19 119/70 96 Room Air 05/13/23 03:37 Room Air 05/13/23 02:44 36.8 C 72 16 119/74 97 Room Air Laboratory Results CBC 05/12/23 05/13/23 Range/Units 18:02 05:21 WBC 5.68 4.71 L (4.8-10.8) K/ul RBC 4.64 4.74 (4.20-5.40) M/uL Hgb 12.5 12.7 (12.0-16.0) g/dl Hct 38.4 38.6 (37.0-47.0) % Plt Count 252 250 (130-400) K/uL Comprehensive Metabolic Panel 05/13/23 Range/Units 05:21 Sodium 134 L (136-145) mmol/L Potassium 4.2 (3.5-5.1) mmol/L Chloride 102 (98-107) mmol/L Carbon Dioxide 25 (21-32) mmol/L BUN 13 (6-23) mg/dl Creatinine 0.55 L (0.6-1.2) mg/dl Glucose 108 H (70-99(Fasting)) mg/dl Calcium 8.6 (8.6-10.3) mg/dl Intake and Output 05/12/23 05/13/23 05/13/23 22:59 06:59 14:59 Output Total 2099 Balance - -1899 Output: Urine 2099 Other: Weight 86.6 kg Weight Measurement Method Standing Scale (4) Community acquired pneumonia Laterality: unspecified laterality Qualified Code(s): J18.9 - Pneumonia, unspecified organism
--- NOTE | 2023-05-13 23:07 | Electrocardiogram Report ---
Test Reason : Blood Pressure : / mmHG Vent. Rate : 069 BPM Atrial Rate : 069 BPM P-R Int : 166 ms QRS Dur : 092 ms QT Int : 400 ms P-R-T Axes : 074 069 107 degrees QTc Int : 428 ms Normal sinus rhythm Septal infarct (cited on or before 09-MAY-2023) T wave abnormality, consider lateral ischemia Abnormal ECG When compared with ECG of 11-MAY-2023 05:47, Non-specific change in ST segment in Anterior leads Inverted T waves have replaced nonspecific T wave abnormality in Lateral leads Confirmed by Giancarlo Hartman ([id number]) on 05/13/2023 11:07:05 PM Referred By: REFERRED SELF Confirmed By:Giancarlo Hartman
[2023-05-14 06:00] LABS: Hematocrit (blood only) 37.1 % (37.0-47.0); Hemoglobin 12.2 g/dl (12.0-16.0); Mean Corpuscular Hemoglobin 26.8 pg (25.0-34.0); Mean Corpuscular Hgb Conc 32.9 g/dL (32.0-36.0); Mean Corpuscular Volume 81.5 fL (80.0-100.0); Mean Platelet Volume 9.7 fL (9.4-12.4); Platelet Count 249 K/uL (130-400); RDW Coefficient of Variation 12.7 % (11.5-14.5); RDW Standard Deviation 37.6 fL (36.4-46.3); Red Blood Count 4.55 M/uL (4.20-5.40); White Blood Count 4.43 K/ul (4.8-10.8)
[2023-05-14 06:11] LABS: BUN Creatinine Ratio 33.3 (10-20); Calcium 8.2 mg/dl (8.6-10.3); Creatinine Clr Calc Pharmacy 118.3 ml/min; Est GFR (African American) 118.4 ml/min; Est GFR (Non-African American) 102.2 ml/min; Potassium 4.2 mmol/L (3.5-5.1)
--- NOTE | 2023-05-14 09:04 | Cardiology Progress Note ---
Date of Service May 14, 2023 Assessment & Plan (1) Acute HFrEF (heart failure with reduced ejection fraction): (2) Status post insertion of drug-eluting stent into left anterior descending (LAD) artery: (3) Ischemic cardiomyopathy: (4) Community acquired pneumonia: (5) Acute hyperglycemia: Plan 58 yo woman S/P HARRIETT to Proximal LAD Hx of: * Cardiomyopathy * LVEF 25-30% * SBP 110 mmHg * Stop Lisinopril * Start Losartan 25 mg po per day * Plans to transition to Entresto 24/26 mg po BID - may do this as an outpt * Start Aldactone 25 mg po per day * Continue Toprol XL 25 mg po per day * Consider Jardiance 10 mg po per day * HARRIETT * Continue Plavix 75 mg po per day * Continue ASA 81 mg po per day * LDL 90 - goal is 55 * Continue Lipitor 40 mg po per day * Add Zetia 10 mg po per day * Lifevest placed * Plans for f/u with Cardiology at [facility] Admission and Anticipated Discharge Date Admission Date: May 10, 2023 Subjective Events overnight: None reported Pt denied: * Chest pain or * Dyspnea * No LE edema * Lifevest Fitted Review of Systems Review of Systems: All systems reviewed & are unremarkable except as noted in HPI & below Results & Data Vital Signs (Past 12 Hours) Vital Signs Temp Pulse Pulse Resp BP Pulse Ox O2 Del Method 05/14/23 07:59 36.6 C 68 16 111/73 96 Room Air 05/14/23 03:26 36.4 C L 71 18 115/74 98 Room Air 05/13/23 23:24 36.8 C 75 18 100/67 98 Room Air 05/13/23 22:56 76 Laboratory Results CBC 05/14/23 Range/Units 05:21 WBC 4.43 L (4.8-10.8) K/ul RBC 4.55 (4.20-5.40) M/uL Hgb 12.2 (12.0-16.0) g/dl Hct 37.1 (37.0-47.0) % Plt Count 249 (130-400) K/uL Comprehensive Metabolic Panel 05/14/23 Range/Units 05:21 Sodium 132 L (136-145) mmol/L Potassium 4.2 (3.5-5.1) mmol/L Chloride 101 (98-107) mmol/L Carbon Dioxide 25 (21-32) mmol/L BUN 19 (6-23) mg/dl Creatinine 0.57 L (0.6-1.2) mg/dl Glucose 200 H (70-99(Fasting)) mg/dl Calcium 8.2 L (8.6-10.3) mg/dl Intake and Output 05/13/23 05/14/23 05/14/23 22:59 06:59 14:59 Intake Total 740 / 1940 1200 / 1940 Output Total 800 / 2300 1500 / 2300 200 / 200 Balance -60 / -360 -300 / -360 -200 / -200 Intake: Oral 740 / 1940 1200 / 1940 Output: Urine 800 / 2300 1500 / 2300 200 / 200 Other: Weight 86.6 kg 88.6 kg Weight Measurement Method Standing Scale Standing Scale (4) Community acquired pneumonia Laterality: unspecified laterality Qualified Code(s): J18.9 - Pneumonia, unsp ecified organism
[2023-05-14] MEDS: CLOPIDOGREL BISULFATE 75 MG TAB PO SCH (09:40)
[2023-05-14] MEDS: ASPIRIN 81 MG ECTAB PO SCH (09:40)
[2023-05-14] MEDS: ATORVASTATIN 40 MG TAB PO SCH (09:40)
[2023-05-14] MEDS: lisinopril 5 MG TAB PO SCH (09:40)
[2023-05-14] MEDS: SPIRONOLACTONE 12.5 MG TAB PO SCH (09:40)
[2023-05-14] MEDS: METOPROLOL SUCC 25MG EXT REL TAB PO SCH (09:40)
[2023-05-14] MEDS: INSULIN ASPART PER UNIT CHARGE SC SCH ×2 (09:44→12:52)
[2023-05-14] MEDS: LANTUS PER UNIT CHARGE SQ SCH (09:45)
--- NOTE | 2023-05-14 12:06 | Discharge Summary ---
Date of Service May 14, 2023 Admission HPI Per Admitting Provider History obtained from patient and records. Medical history significant for hypertension, hyperlipidemia, DM2 currently diet controlled, ongoing vape use, medical noncompliance. Patient stopped going to her PCP 5 years ago after losing medical insurance. She stopped taking home medications (lisinopril, Lipitor, and metformin) after losing significant weight. 1 week history of of junky cough symptoms productive of yellow-green sputum. 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 Denies aspiration. Has completed COVID-19 vaccination. 3 days ago, patient noted worsening shortness of breath, fluid retention, leg swelling. Central chest pain without radiation. Ceftriaxone, azithromycin, Solu-Medrol and neb treatment administered upon arrival at the ER. 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 Admission Exam Per Admitting Provider GENERAL: Comfortable, obese, pleasant, no respiratory distress SKIN: Normal color, warm HEENT: [place] palpebral conjunctivae, no ptosis, dry buccal mucosa NECK : Supple, short neck, no tenderness CHEST : Decreased breath sounds, scattered expiratory wheezes, no tenderness HEART : RRR, no obvious murmurs ABDOMEN: Some distention, nontender EXTREMITIES : Bilateral LE swelling, no LE tenderness, prominent LE varicosities, no other conspicuous deformities noted NEUROLOGIC : Coherent, no facial asymmetry, no other gross focality Principal Diagnosis Acute heart failure with reduced ejection fraction Ischemic cardiomyopathy Status post insertion of drug eluting stent into left anterior descending artery Enterovirus infection Poorly controlled Diabetes mellitus Post-menopausal bleeding Uterine mass Discharge Exam Constitutional + well hydrated; no acute distress Eyes PERRL, conjunctivae normal, anicteric sclerae ENMT external ear and nose normal, oropharynx normal Respiratory normal respiratory effort, lungs clear to auscultation Cardiovascular Rate/Rhythm: regular rate and regular rhythm S1 S2 Gastrointestinal (Abdomen) normal bowel sounds, soft, nontender, no hepatosplenomegaly Musculoskeletal no cyanosis or clubbing, extremities motor strength 5/5 Neurologic PERRL, EOMI, accommodation nl, no face palsy, no dysarthria Psychiatric A+Ox3, euthymic affect Discharge Data Allergies Allergy/AdvReac Type Severity Reaction Status Date / Time bee venom protein (honey bee) Allergy Severe Anaphylaxis Verified 05/10/23 10:22 metformin AdvReac Vomiting Verified 05/10/23 03:33 Consultations 05/10/23 00:48 ED Decision to Admit Stat 05/10/23 03:49 Consult Cardiology Routine 05/13/23 08:03 Consult Gynecology Routine Procedures Performed Operation Date: 05/12/23 11:00 Actual Procedures s Cineradiography w/Routine Exam - Hiro Dawkins MD s Cath, Left with Cors and Vent - Hior Dawkins MD p Drug Eluting Stent SGl Vessel - Hiro Dawkins MD s IVUS Coronary Single Vessel - Hiro Dawkins MD Ordered Studies 05/09/23 22:03 CT angio chest PE protocol Stat 05/12/23 08:34 CL Cath Imgs for PACS use only Stat 05/12/23 13:16 CL IVUS Coronary Single Vessel Routine 05/12/23 17:51 US pelvic complete Urgent Diabetes Follow up Diabetes Follow-up Needed for HgbA1c >9% Hospital Course (1) SOB (shortness of breath): (2) Enterovirus infection: (3) Ischemic cardiomyopathy: (4) Acute HFrEF (heart failure with reduced ejection fraction): 58-year-old woman with history of diabetes mellitus not on any medication, hypertension, hyperlipidemia who presented with cough shortness of breath for about a week. Chest x-ray noted mild cardiomegaly with pulmonary vascular congestion, Chest CTA noted no PE but noted mild bilateral pleural effusion and infiltrates that are nonspecific. Respiratory PCR was positive for enterovirus Troponin was mildly elevated at 4232.5. EKG noted 0.[address] elevation in V1 V2. Echocardiogram noted large size apical septal and anteroseptal wall motion abnormality with hypokinesis to akinesis, associated thinning of the anteroseptal wall, ejection fraction of 25 to 30%, grade 1 diastolic dysfunction and mild mitral regurgitation. No prior echo to compare Possible acute myocardial infarction within the past 4 weeks s/p cardiac catheterization on 05/12/23 which showed Multivessel Coronary artery disease. Had PCI to mLAD with single HARRIETT 98% mid LAD stenosis 60% proximal LAD (by IVUS) 70% stenosis in small distal circumflex 40 to 50% distal RCA extending into RPLB1 Will be on DAPT for at least 1 year Patient has Life Vest set up Discharged on the following new medications: -Aspirin 81mg daily and Clopidogrel 75mg daily -Atorvastatin 40mg daily -Losartan 25mg daily -Metoprolol succinate 25mg daily -Spironolactone 25mg daily -Jardiance 10mg daily -Zetia 10mg daily (5) Poorly controlled diabetes mellitus: Patient reported that she was on metformin in the past but stopped due to GI side effects. Has not been on any antidiabetics since. Reported that she had lost weight since then. Hemoglobin A1c was 11.1 Provided diabetes education. Lifestyle modification encouraged. Advised to stop vaping Discharged on insulin 70/30 25U AM and 15U PM Jardiance prescribed will also help with diabetes and heart failure management Scripts for diabetics supplies sent (6) Post-menopause bleeding: Patient developed vaginal bleeding on 05/12/23 Hb has remained stable Pelvis USS noted heterogenous endometrial mass suspicious for malignancy TITLE I TEACHER evaluated and will follow up with TITLE I TEACHER for endometrial biopsy Patient and CM working on getting Medical Assistance Total Time Total Time Spent Total Time Spent (In Minutes): 45 Total Time Includes: Examination of the Patient, Discharge Planning, Medication Reconciliation and Communication With Other Providers Discharge Plan Discharge Items Patient Disposition: Home - Self-Care Reason For Visit: Cough, shortness of breath Discharge Diagnosis: Acute heart failure with reduced ejection fraction Ischemic cardiomyopathy Status post insertion of drug eluting stent into left anterior descending artery Enterovirus infection Poorly controlled Diabetes mellitus Post-menopausal bleeding Uterine mass Condition on Discharge: Fair Activity: Resume your previous activity Non-emergency contact: Primary Care Provider, Braille Teacher and Legal Officer Call non-emergency contact if: you have any medication questions Follow-up/Referrals: Denia Reid CRNP [Nurse Practitioner] - 05/19/23 10:30 am Chidi Thompson DO [Braille Teacher] - (Date & Time 05/19/2023 10:00 AM Provider Chidi Thompson DO Department Cardiology, [facility] ) Edil Coleman MD [Physician] - (Call for appointment) Diet: Carb Consistent or DM2, Heart Healthy and Low Sodium (2gm) Addtl Attending Provider Instructions: Ms Goldberg You came to the hospital complaining of cough and shortness of breath. You were evaluated and managed for the above mentioned diagnoses. You had a cardiac catheterization with placement of stent in a blood vessel in your heart. You were noted to have reduced heart function. You are being discharged with a Life Vest and will need to follow up with Cardiology in the office. You also started having vaginal bleeding and pelvic ultrasound showed a uterine mass. You were evaluated by Commercial Sales Representative and will need to follow up with Gynecology in the office for biopsy. Your diabetes is poorly controlled. It is very important that this is managed appropriately with medication and lifestyle changes. Please adhere to instructions provided for diabetes management You are being discharged on the following medications: -Aspirin 81mg daily and Clopidogrel 75mg daily (You need to be on this for atleast one year) -Atorvastatin 40mg daily -Losartan 25mg daily -Metoprolol succinate 25mg daily -Spironolactone 25mg daily -Jardiance 10mg daily -Zetia 10mg daily -Insulin 70/30: 25 Units in the morning and 15Units at night Please ensure follow up with Primary Doctor, Cardiology and Commercial Sales Representative. It was a pleasure taking care of you. Pending Studies at Discharge: No Stand-Alone Forms: My [facility], Smoking Cessation Medications and DC Order Prescriptions: New atorvastatin 40 mg Tablet 40 mg PO QAM 30 Days Qty: 30 1RF clopidogrel 75 mg Tablet 75 mg PO QAM 30 Days Qty: 30 1RF aspirin 81 mg Tablet,Delayed Release (Dr/Ec) 81 mg PO QAM 30 Days Qty: 30 1RF metoprolol succinate 25 mg Tablet Extended Release 24 Hr 25 mg PO QAM 30 Days Qty: 30 1RF (DME) pen needle, diabetic 32 gauge x 5/32" needle See Rx Instructions .Route Qty: 100 1RF Rx Instructions: Use twice a day Novolin 70-30 FlexPen U-100 100 unit/mL (70-30) insulin pen See Rx Instructions .ROUTE .COMPLEX Qty: 5 1RF Rx Instructions: Take 25 units in the morning and 15 units at night (DME) OneTouch Verio test strips Strip See Rx Instructions .Route Qty: 100 1RF Rx Instructions: Check 3 times a day (DME) lancets [OneTouch Delica Plus Lancet] 33 gauge misc See Rx Instructions .Route Qty: 100 1RF Rx Instructions: Check 3 times a day spironolactone 25 mg tablet 25 mg PO DAILY Qty: 30 1RF Jardiance 10 mg tablet 10 mg PO DAILY Qty: 30 1RF losartan 25 mg tablet 25 mg PO DAILY Qty: 30 1RF ezetimibe [Zetia] 10 mg tablet 10 mg PO DAILY Qty: 30 1RF Continued acetaminophen [Tylenol Extra Strength] 500 mg Tablet 1,000 mg PO Q6H PRN (Reason: Fever Or Pain) Discharge Orders: Discharge Order- CHF (Routine); Ordered 05/14/23 Ordered By: Dahiana Figueroa Admission Data Admit Date/Time: 05/10/23 03:04 Attending Provider: Dahiana Figueroa I. Admit Provider: Pino Cuenca Primary Care Provider: PCP,NO Other Providers: Pino Cuenca ; Elsy Medina ; Chidi Thompson ; Kofi Vernon ; Santana Wren ; Americo Myers ; Winston Cortes ; Heather Arellano ; Sara Nesbitt ; Elsy Urban ; Reza Hobbs ; Светлана Zavala ; Monica Jaffe ; Edil Coleman Other Interventions: Discharge Summary Assessment (RN) Last Done: 05/14/23 13:22
== END 2023-05-14 14:34 | disposition home or self-care (01) | DRG 246 ==
LOC: ED 21:19 → SUATTDRO 05-10 03:04 → EDINP 05-10 03:04 → 4W 05-10 13:30
DX: E11.65 Type 2 diabetes mellitus with hyperglycemia; Z59.7 Insufficient social insurance and welfare support; J12.89 Other viral pneumonia; Z91.030 Bee allergy status; N85.8 Other specified noninflammatory disorders of uterus; Z91.128 Patient's intentional underdosing of medication regimen for other reason; Z91.120 Patient's intentional underdosing of medication regimen due to financial hardship; I21.9 Acute myocardial infarction, unspecified; T38.3X6A Underdosing of insulin and oral hypoglycemic [antidiabetic] drugs, initial encounter; N95.0 Postmenopausal bleeding; I25.110 Atherosclerotic heart disease of native coronary artery with unstable angina pectoris; E78.5 Hyperlipidemia, unspecified; F17.290 Nicotine dependence, other tobacco product, uncomplicated; I25.5 Ischemic cardiomyopathy; I50.21 Acute systolic (congestive) heart failure; I11.0 Hypertensive heart disease with heart failure; B97.10 Unspecified enterovirus as the cause of diseases classified elsewhere

== ENCOUNTER 2023-05-28 22:54 | Inpatient (IN) ==
[2023-05-28] MEDS ORDERED: SODIUM CHLORIDE 0.9% 1000ML 1,000 ML IV SCH (23:15)
[2023-05-28 23:46] LABS: Basophils # (auto) 0.04 K/uL (0-0.2); Basophils % (auto) 0.6 %; Eosinophils # (auto) 0.29 K/uL (0-0.50); Eosinophils % (auto) 4.6 %; Hemoglobin 12.1 g/dl (12.0-16.0); Immature Granulocytes # (auto) 0.01 K/uL (0.01-0.20); Immature Granulocytes % (auto) 0.2 %; Lymphocytes # (auto) 2.52 K/uL (1.2-3.4); Lymphocytes % (auto) 40.4 %; Mean Corpuscular Hemoglobin 26.7 pg (25.0-34.0); Mean Corpuscular Hgb Conc 32.7 g/dL (32.0-36.0); Mean Corpuscular Volume 81.7 fL (80.0-100.0); Mean Platelet Volume 9.3 fL (9.4-12.4); Monocytes # (auto) 0.61 K/uL (0.11-0.59); Monocytes % (auto) 9.8 %; Neutrophils # (auto) 2.77 K/uL (1.40-6.50); Neutrophils % (auto) 44.4 %; Platelet Count 254 K/uL (130-400); RDW Coefficient of Variation 12.9 % (11.5-14.5); RDW Standard Deviation 38.3 fL (36.4-46.3); Red Blood Count 4.53 M/uL (4.20-5.40); White Blood Count 6.24 K/ul (4.8-10.8)
[2023-05-29 00:01] LABS: Albumin Level 3.9 gm/dl (3.4-5.0); Bilirubin,Total 0.3 mg/dl (0.2-1.0); Potassium 4.7 mmol/L (3.5-5.1)
[2023-05-29 00:07] LABS: Albumin Globulin Ratio 1.3 (0.9-2); BUN Creatinine Ratio 39.1 (10-20); Creatinine Clr Calc Pharmacy 105.2 ml/min; Est GFR (Non-African American) 98.4 ml/min; Globulin 2.9 gm/dl (2.5-4.0); Total Protein 6.8 gm/dl (6.0-8.3)
[2023-05-29 00:18] LABS: Troponin I High Sensitivity 50.6 pg/ml (0-14)
[2023-05-29 00:51] LABS: Appearance Urine Clear (Clear); Bacteria Urine Automated Negative (Negative); Bilirubin Urine Negative (Negative); Blood Urine 3+ (Negative); Cast Urine Automated 0 /lpf (0-5); Color Urine Yellow; Glucose Urine UA Trace (Negative); Ketones Urine Trace (Negative); Leukocyte Esterase Urine Negative (Negative); Nitrite Urine Negative (Negative); Protein Urine Negative (Negative); RBC Urine Automated >30 /hpf (0-4); Specific Gravity Urine 1.025 (1.000-1.030); Urobilinogen Urine Negative (Negative); pH Urine 5.5 (4.5-7.5)
--- NOTE | 2023-05-29 02:04 | Emergency Department Note ---
Impression & Plan Elevated troponin, Hypotension ED Provider Note INFORMANT: Patient ED PROVIDER(S): Dony Sarabia MD CHIEF COMPLAINT: Hypotension PLAN: Disposition: Admitted Condition: Good Outpatient prescription management: none Referral: None MEDICAL DECISION MAKING: Patient presented because of an episode of hypotension. On presentation she was doing well. She examines normally. Patient had a nonischemic ECG. chest x-ray was unremarkable. Her CBC and chemistry panel was unremarkable except for a mild prerenal appearance. The patient's cardiac troponin is mildly elevated mo re so than prior. In light of her recent history, this elevated troponin, and this episode of hypotension which is unexplained at this moment the patient will need further management in the hospital. Consultation was made with Dr. David Kwon of the [facility] service. Patient was evaluated in the ER for further management. Discussed with manager agricultural After review of the information above and other included data, I feel the patient requires admission. Triage Nursing notes reviewed and agree them. Vital Signs: reviewed and remarkable for no significant abnormalities Prior /Outside records reviewed: Prior admission record reviewed Differential diagnosis: Dehydration, medication reaction, cardiac ischemia, aortic dissection, pulmonary embolism, pneumothorax, pneumonia, pericarditis, myocarditis, esophageal rupture, GERD, cholecystitis, pancreatitis, musculoskeletal, as well as other pathologies. Diagnostics, as interpreted by me: ECG: Twelve-lead ECG reveals a normal sinus rhythm with septal Q wave at 68 bpm. When compared to 05/12/2023 there is improvement and resolution of the lateral T wave inversion Cardiac Monitoring: Cardiac monitoring ordered by me: The patient was placed on continuous cardiac monitoring and observed. It revealed a normal sinus rhythm at 68 beats per minute without ectopy or evidence of dysrhythmia. Medical decision rules: none Imaging studies: Chest x-ray. Findings: A chest x-ray was performed and revealed no pneumothorax, effusion, infiltrate, pulmonary edema, free air under the diaphragm, or wide mediastinum. Impression: No acute disease. HPI: The patient is a 58year old female who presents to the Emergency Room with complaints of hypotension. This started about 9:00 tonight and is currently resolved. Patient states last about 1.5 hours. The patient also notes the following associated symptoms, lightheadedness and dizziness at that time. She also noted some right arm discomfort. The patient has taken no medication for relieving factors. Current pain is rated as 0/10. Pain was a 5. Patient was recently in the hospital 2 weeks ago and had a cardiac stent placed. Pt denies LOC, headache, fevers, chills, diaphoresis, visual changes, neck pain, chest pain, breathing difficulties, nausea, vomiting, abdominal pain, back pain, melena, hematochezia, urinary symptoms, numbness, weakness, lymphadenopathy, rash, or other complaints. PAST MEDICAL HISTORY: See Below, CAD PAST SURGICAL HISTORY: See Below, SOCIAL HISTORY: See Below, HOME MEDICATIONS: See Below ALLERGIES: See Below VITALS: See Below PHYSICAL EXAMINATION: GENERAL: Awake, alert, well-appearing, in no distress HENT: Normocephalic, atraumatic. Oropharynx unremarkable. EYES: Normal conjunctiva. Sclera non-icteric. NECK: Inspection normal. Non-tender. Supple. No nuchal rigidity. FROM. No masses. RESPIRATORY: Clear to auscultation. No wheezes. No rales. Normal respiratory effort. CARDIAC: Normal rate. Normal rhythm. No murmurs. No rubs. Extremities warm and well perfused. Pulses equal. No JVD. GI: Soft, non-distended. No tenderness to palpation. No rebound or guarding. No masses. RECTAL: Deferred. MUSCULOSKELETAL: Atraumatic. Chest examination reveals no tenderness. The back is symmetrical on inspection without obvious abnormality. There is no CVA tenderness to palpation. No joint edema. LOWER EXTREMITIES: Calves are equal size bilaterally and non-tender. No edema. No discoloration. NEURO: Normal sensorium. No sensory or motor deficits noted. SKIN: No rash or jaundice noted. Past Med/Surg History Surgical History History of tonsillectomy Family History Grandmother (Paternal) Breast cancer Brother Myocardial infarction Denies family history of Ovarian cancer Prostate cancer Colorectal cancer Social History Smoking Status: Never smoker Tobacco Type: Cigarettes and E-cigarettes / Vaping Age Started Using Tobacco: 26; Age Quit Using Tobacco: 30; Second Hand Exposure: No; Do You Dip or Chew Tobacco: No; Hx Alcohol Use: No Hx Substance Use: No Preferred Language: Welsh Communication Ability: Effective Steffen House Supervisor Required: No Beliefs That Will Affect Care: None marital status: Single Current Living Situation: Alone current occupational status: other 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 How many Children do You have: 1 Feels Safe at Home: Yes Childhood Exposure to Second-Hand Smoke: Yes Diet: diabetic and low carbohydrate caffeine: Yes Dental Care, Regularly: Yes Physical Activity Frequency: Daily Seatbelt Use: always Sunscreen Use: Yes Assistive Devices: None Allergies Allergies Allergy/AdvReac Type Severity Reaction Status Date / Time bee venom protein (honey bee) Allergy Severe Anaphylaxis Verified 05/23/23 09:55 metformin AdvReac Vomiting Verified 05/23/23 09:55 Home Meds Home Medications Medication Instructions Recorded Confirmed acetaminophen 500 mg tablet 1,000 mg PO Q6H PRN Fever Or Pain 05/10/23 05/28/23 (Tylenol Extra Strength) Previous Rx's Medication Instructions Recorded aspirin 81 mg tablet,delayed 81 mg PO QAM 30 days #30 tabs 05/14/23 release atorvastatin 40 mg tablet 40 mg PO QAM 30 days #30 tabs 05/14/23 blood sugar diagnostic (OneTouch #100 ea 05/14/23 Verio test strips) clopidogrel 75 mg tablet 75 mg PO QAM 30 days #30 tabs 05/14/23 ezetimibe 10 mg tablet (Zetia) 10 mg PO DAILY #30 tabs 05/14/23 lancets 33 gauge (OneTouch Delica #100 ea 05/14/23 Plus Lancet) losartan 25 mg tablet 25 mg PO DAILY #30 tabs 05/14/23 metoprolol succinate 25 mg 25 mg PO QAM 30 days #30 tabs 05/14/23 tablet,extended release 24 hr pen needle, diabetic 32 gauge x #100 ea 05/14/23" spironolactone 25 mg tablet 25 mg PO DAILY #30 tabs 05/14/23 insulin NPH-regular 70-30 U-100 See Rx Instructions .Route 05/23/23 insulin 100 unit/mL subcutaneous .COMPLEX #5 syringes pen (Novolin 70-30 FlexPen U-100 Insulin) Results & Data (ED) Vital Signs Vital Signs - 24 hr 05/28/23 22:56 05/28/23 23:03 05/29/23 00:33 Temperature 36.8 C Temperature Source Temporal Artery Scan Pulse Rate 76 Pulse Rate [Apical] 72 Respiratory Rate 20 18 Respiratory Effort / Characteristics Non-Labored Spontaneous Respiratory Depth Normal Respiratory Pattern Regular Blood Pressure 138/82 Blood Pressure [Right Arm] 131/89 Blood Pressure Mean 100 Blood Pressure Mean [Right Arm] 103 Pulse Oximetry 98 97 98 Oxygen Delivery Method Room Air Room Air Room Air Sepsis Recent Fever Within 48 Hours No Sepsis New/Unexplained Change in Mental Status No Sepsis Action Taken by Nursing No Action Required 05/29/23 00:34 05/29/23 00:44 05/29/23 00:00 Temperature Temperature Source Pulse Rate 68 72 Pulse Rate [Apical] 76 Respiratory Rate 20 18 Respiratory Effort / Characteristics Respiratory Depth Respiratory Pattern Blood Pressure Blood Pressure [Right Arm] 133/87 Blood Pressure Mean Blood Pressure Mean [Right Arm] 102 Pulse Oximetry 98 98 Oxygen Delivery Method Room Air Room Air Sepsis Recent Fever Within 48 Hours Sepsis New/Unexplained Change in Mental Status Sepsis Action Taken by Nursing Laboratory Data 05/28/23 23:25 05/28/23 23:25 Lab Results 05/28/23 05/28/23 05/28/23 Range/Units 23:25 23:25 23:25 WBC 6.24 (4.8-10.8) K/ul RBC 4.53 (4.20-5.40) M/uL Hgb 12.1 (12.0-16.0) g/dl Hct 37.0 (37.0-47.0) % MCV 81.7 (80.0-100.0) fL MCH 26.7 (25.0-34.0) pg MCHC 32.7 (32.0-36.0) g/dL RDW Std Deviation 38.3 (36.4-46.3) fL RDW Coeff of Viktor 12.9 (11.5-14.5) % Plt Count 254 (130-400) K/uL MPV 9.3 L (9.4-12.4) fL Immature Gran % (Auto) 0.2 % Neut % (Auto) 44.4 % Lymph % (Auto) 40.4 % [place] % (Auto) 9.8 % Eos % (Auto) 4.6 % Baso % (Auto) 0.6 % Neut # (Auto) 2.77 (1.40-6.50) K/uL Lymph # (Auto) 2.52 (1.2-3.4) K/uL [place] # (Auto) 0.61 H (0.11-0.59) K/uL Eos # (Auto) 0.29 (0-0.50) K/uL Baso # (Auto) 0.04 (0-0.2) K/uL Immature Gran # (Auto) 0.01 (0.01-0.20) K/uL Sodium 135 L (136-145) mmol/L Potassium 4.7 (3.5-5.1) mmol/L Chloride 102 (98-107) mmol/L Carbon Dioxide 27 (21-32) mmol/L Anion Gap 6 (3-11) BUN 25 H (6-23) mg/dl Creatinine 0.64 (0.6-1.2) mg/dl Est Cr Clr Drug Dosing 105.2 ml/min Est GFR ( Amer) 114.0 ml/min Est GFR (Non-Af Amer) 98.4 ml/min BUN/Creatinine Ratio 39.1 H (10-20) Glucose 208 H (70-99(Fasting)) mg/dl Lactate (0.4-2.0) mmol/L Calcium 9.0 (8.6-10.3) mg/dl Magnesium 2.0 (1.7-2.4) mg/dl Total Bilirubin 0.3 (0.2-1.0) mg/dl AST 20 (13-39) U/L ALT 19 (7-52) U/L Alkaline Phosphatase 81 (34-104) U/L Troponin I High Sens 50.6 H* (0-14) pg/ml Total Protein 6.8 (6.0-8.3) gm/dl Albumin 3.9 (3.4-5.0) gm/dl Globulin 2.9 (2.5-4.0) gm/dl Albumin/Globulin Ratio 1.3 (0.9-2) Procalcitonin (0-0.5) ng/ml TSH 3.857 (0.300-4.500) uIu/ml Urine Color Urine Appearance (Clear) Urine pH (4.5-7.5) Ur Specific [place] (1.000-1.030) Urine Protein (Negative) Urine Glucose (UA) (Negative) Urine Ketones (Negative) Urine Blood (Negative) Urine Nitrite (Negative) Urine Bilirubin (Negative) Urine Urobilinogen (Negative) Ur Leukocyte Esterase (Negative) Urine WBC (Auto) (0-5) /hpf Urine RBC (Auto) (0-4) /hpf U Hyaline Cast (Auto) (0-5) /lpf U Epithel Cells (Auto) (0-5) /lpf Urine Bacteria (Auto) (Negative) 05/28/23 05/29/23 05/29/23 Range/Units 23:25 00:19 00:28 WBC (4.8-10.8) K/ul RBC (4.20-5.40) M/uL Hgb (12.0-16.0) g/dl Hct (37.0-47.0) % MCV (80.0-100.0) fL MCH (25.0-34.0) pg MCHC (32.0-36.0) g/dL RDW Std Deviation (36.4-46.3) fL RDW Coeff of Viktor (11.5-14.5) % Plt Count (130-400) K/uL MPV (9.4-12.4) fL Immature Gran % (Auto) % Neut % (Auto) % Lymph % (Auto) % [place] % (Auto) % Eos % (Auto) % Baso % (Auto) % Neut # (Auto) (1.40-6.50) K/uL Lymph # (Auto) (1.2-3.4) K/uL [place] # (Auto) (0.11-0.59) K/uL Eos # (Auto) (0-0.50) K/uL Baso # (Auto) (0-0.2) K/uL Immature Gran # (Auto) (0.01-0.20) K/uL Sodium (136-145) mmol/L Potassium (3.5-5.1) mmol/L Chloride (98-107) mmol/L Carbon Dioxide (21-32) mmol/L Anion Gap (3-11) BUN (6-23) mg/dl Creatinine (0.6-1.2) mg/dl Est Cr Clr Drug Dosing ml/min Est GFR ( Amer) ml/min Est GFR (Non-Af Amer) ml/min BUN/Creatinine Ratio (10-20) Glucose (70-99(Fasting)) mg/dl Lactate 0.7 (0.4-2.0) mmol/L Calcium (8.6-10.3) mg/dl Magnesium (1.7-2.4) mg/dl Total Bilirubin (0.2-1.0) mg/dl AST (13-39) U/L ALT (7-52) U/L Alkaline Phosphatase (34-104) U/L Troponin I High Sens (0-14) pg/ml Total Protein (6.0-8.3) gm/dl Albumin (3.4-5.0) gm/dl Globulin (2.5-4.0) gm/dl Albumin/Globulin Ratio (0.9-2) Procalcitonin < 0.05 (0-0.5) ng/ml TSH (0.300-4.500) uIu/ml Urine Color Yellow Urine Appearance Clear (Clear) Urine pH 5.5 (4.5-7.5) Ur Specific [place] 1.025 (1.000-1.030) Urine Protein Negative (Negative) Urine Glucose (UA) Trace H (Negative) Urine Ketones Trace H (Negative) Urine Blood 3+ H (Negative) Urine Nitrite Negative (Negative) Urine Bilirubin Negative (Negative) Urine Urobilinogen Negative (Negative) Ur Leukocyte Esterase Negative (Negative) Urine WBC (Auto) 1-5 (0-5) /hpf Urine RBC (Auto) >30 H (0-4) /hpf U Hyaline Cast (Auto) 0 (0-5) /lpf U Epithel Cells (Auto) 5-10 H (0-5) /lpf Urine Bacteria (Auto) Negative (Negative) Administered Medications Discontinued Medications Sodium Chloride (Nss 1000ml) 1,000 mls @ 125 mls/hr IV .Q8H ANTONIO Stop: 05/29/23 07:14 Last Infusion: 05/29/23 05:12 Dose: 0 mls/hr Documented By: Admin: 05/29/23 00:36 Dose: 125 mls/hr Documented By: SIMÓN Discharge Plan Visit Data Chief Complaint: Hypotension Stated Complaint: Low blood pressure ED Provider: Dony Sarabia Discharge Problem: Elevated troponin, Hypotension Patient Disposition: Admitted As Inpatient Discharge Instructions Interventions: ED Discharge Assessment Last Done: 05/29/23 03:53
--- NOTE | 2023-05-29 02:28 | History & Physical Report ---
Date of Service May 29, 2023 Assessment & Plan (1) Hypotension: Plan: 58 F with CAD + HFrEF s/p recent catheterization and stent placement on 05/12/2023 who presents with concern for hypotension and admitted for management of elevated troponin discovered on work-up. Hypotension -Patient reported dizziness, blurry vision at home. BPs at home range from 60s/40s to 80s/50s. Lactate negative (0.7). -Pressures in the ED have been normal (130s systolic/80s diastolic). -Some concern for orthostatic hypotensionhowever, patient takes all her HF meds in the morning without fail. -Unclear etiology (possibly vasovagal, cardiogenic hypoperfusion etc.) but consider resolved at this time. * Admit to [facility] telemetry * Trend vitals Elevated troponin - 50.6 on admission. Patient denies chest pain but reports some chest tightness has now resolved. -Patient also presented with atypical chest symptoms (SOB, flu symptoms) when multiple vessel CAD was discovered so unclear if this was no event or downtrending post catheterization. Unfortunately no post cath troponin measurement for comparison. Troponin pre-cath on 05/10 with 32.5. -Likely downtrending, given recent cardiac catheterization and stent placement. However, can resume in the absence of comparative post-cath troponin. * Recheck a.m. troponin * A.m. echocardiogram pending * Deferred as needed nitrates, analgesic pain control, as patient denies chest pain, is otherwise asymptomatic at this time. Acute hyperglycemia/diabetes mellitus, type II -History of diabetes diagnosed in 2016. Initially managed with significant zaria ght loss, lifestyle changes. -However, hemoglobin A1c 11.1 at last check on 05/10/23. Subsequently started on Novolin 70/30 insulin (23 units every morning, 10 units nightly). Jardiance also prescribed. -BSG 208 on this admission. * Lantus basal (12 units every morning; 5 units nightly) * SSI coverage (CF = 30; CR = 10; goal range 100-140) * A.m. hemoglobin A1c Acute HFrEF/s/p insertion of HARRIETT in the LAD artery/CAD -Optimized on ASA/Plavix, losartan, Toprol, spironolactone. -Continue these meds on admission, as patient takes these in the morning, lowering suspicion presenting dizziness and hypotension 2/2 orthostatic hypotension. * Continue home regimen: Losartan 25 mg daily, metoprolol 25 mg daily, spironolactone 25 mg daily, aspirin 81 mg daily, clopidogrel 75 mg daily. Dyslipidemia -Chronic. Managed on atorvastatin and Zetia, although patient has documented history of noncompliance. * Continue home atorvastatin, Zetia. Postmenopausal bleeding -Endometrial mass (~4.7 cm) discovered post-catheterization/stent placement. Patient has been postmenopausal for 6 years. Sample removed for testing, suspected to be malignant. -[facility] gynecology follow-up for endometrial biopsy pending. Still has intermittent vaginal bleeding. * Follow-up with gynecology as outpatient Code: Full code Dispo: Med-Surg telemetry FEN/GI: Heart healthy/Carb consistent DVT Prophylaxis: Deferring due to persistent postmenopausal bleeding PT/OT: No Consults: Cardiology (?) Case Management: No (2) Elevated troponin: (3) Acute hyperglycemia: (4) Acute HFrEF (heart failure with reduced ejection fraction): (5) Poorly controlled diabetes mellitus: (6) Hyperlipidemia: (7) Status post insertion of drug-eluting stent into left anterior descending (LAD) artery: (8) Post-menopause bleeding: History of Present Illness Primary Care Provider: ESTELA Granger Allergies Allergy/AdvReac Type Severity Reaction Status Date / Time bee venom protein (honey bee) Allergy Severe Anaphylaxis Verified 05/23/23 09:55 metformin AdvReac Vomiting Verified 05/23/23 09:55 Home Medications Medication Instructions Recorded Confirmed Type acetaminophen 500 mg tablet 1,000 mg PO Q6H PRN Fever Or Pain 05/10/23 05/28/23 History (Tylenol Extra Strength) aspirin 81 mg tablet,delayed 81 mg PO QAM 30 days #30 tabs 05/14/23 05/28/23 Rx release atorvastatin 40 mg tablet 40 mg PO QAM 30 days #30 tabs 05/14/23 05/28/23 Rx blood sugar diagnostic ([facility] #100 ea 05/14/23 05/29/23 Rx Verio test strips) clopidogrel 75 mg tablet 75 mg PO QAM 30 days #30 tabs 05/14/23 05/28/23 Rx ezetimibe 10 mg tablet (Zetia) 10 mg PO DAILY #30 tabs 05/14/23 05/28/23 Rx lancets 33 gauge (OneTouch [facility]ica #100 ea 05/14/23 05/29/23 Rx Plus Lancet) losartan 25 mg tablet 25 mg PO DAILY #30 tabs 05/14/23 05/28/23 Rx metoprolol succinate 25 mg 25 mg PO QAM 30 days #30 tabs 05/14/23 05/28/23 Rx tablet,extended release 24 hr pen needle, diabetic 32 gauge x #100 ea 05/14/23 05/29/23 Rx 5/32" spironolactone 25 mg tablet 25 mg PO DAILY #30 tabs 05/14/23 05/28/23 Rx insulin NPH-regular 70-30 U-100 See Rx Instructions .Route 05/23/23 05/28/23 Rx insulin 100 unit/mL subcutaneous .COMPLEX #5 syringes pen (Novolin 70-30 FlexPen U-100 Insulin) Past Med/Surg History Surgical History History of tonsillectomy Family History Grandmother (Paternal) Breast cancer Brother Myocardial infarction Denies family history of Ovarian cancer Prostate cancer Colorectal cancer Social History Smoking Status: Never smoker Tobacco Type: Cigarettes and E-cigarettes / Vaping Age Started Using Tobacco: 26; Age Quit Using Tobacco: 30; Second Hand Exposure: No; Do You Dip or Chew Tobacco: No; Hx Alcohol Use: No Hx Substance Use: No Preferred Language: Danish Communication Ability: Effective Rn Lactation Required: No Beliefs That Will Affect Care: None marital status: Single Current Living Situation: Alone current occupational status: other 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 Normal conjunctiva, anicteric sclera. Oropharynx normal. Respiratory: Normal respiratory effort, CTABL. Cardiovascular: RRR without murmurs, gallops, or rubs. Bilateral varicose veins but no pedal edema. GI: Soft abdomen. Nontender x4 quadrants Neuro: Alert and oriented x3. Results & Data Results & Data Vital Signs (Past 12 Hours) Vital Signs Temp Pulse Pulse Resp BP BP Pulse Ox 05/29/23 02:00 73 16 141/87 H 97 05/29/23 00:00 72 05/29/23 00:44 76 18 133/87 98 05/29/23 00:34 68 20 98 05/29/23 00:33 98 05/28/23 23:03 72 18 131/89 97 05/28/23 22:56 36.8 C 76 20 138/82 98 O2 Del Method 05/29/23 02:00 Room Air 05/29/23 00:00 05/29/23 00:44 Room Air 05/29/23 00:34 Room Air 05/29/23 00:33 Room Air 05/28/23 23:03 Room Air 05/28/23 22:56 Room Air Supervising Physician Co-Signing Physician Notes Attending addendum: I have physically seen this patient, have supervised the medical residents activities, and agree with the H&P unless as otherwise noted. Assessment and Plan: Elevated troponin/CAD/HFrEF/status post cardiac catheterization with stent placement- Troponin 50.6, which may be actually lower than after cath, as no post cath troponin was drawn at last admission. Patient reports her blood pressure was in the 60/40-80/50 range at home, however, in the emergency department her blood pressure has been in the 130s/80s The patient will be admitted to telemetry for serial cardiac enzymes, serial EKG's, cardiac rhythm monitoring and a 2-D echocardiogram with Dopplers. If patient develops symptoms while in the emergency department or in the hospital, will consider heparin drip at that time Follow serial CBC with differential, chemistry profile, magnesium and troponin levels Repeat echocardiogram in a.m. as noted Continue aspirin, losartan, metoprolol, spironolactone and clopidogrel Diabetes mellitus-Lantus and SSI coverage as noted Check hemoglobin A1c Remaining orders and notations as noted Resident Activity Tracking Resident Involvement: Resident Care Provided Care Provided: Adult Hospital Medicine
[2023-05-29] MEDS ORDERED: CARBOHYDRATES FOR HYPOGLYCEMIA PO PRN (04:17)
[2023-05-29] MEDS ORDERED: DEXTROSE 50% 50 ML SYRINGE IV PRN (04:17)
[2023-05-29] MEDS ORDERED: GLUCOSE 40% GEL 15 GM TUBE PO PRN (04:17)
[2023-05-29] MEDS ORDERED: GLUCAGON FOR INJ 1 MG VIAL SQ PRN (04:17)
[2023-05-29] MEDS ORDERED: GLUCOSE 10 TAB/TUBE PO PRN (04:17)
[2023-05-29] MEDS ORDERED: ACETAMINOPHEN 500 MG TAB PO PRN (04:17)
[2023-05-29 05:45] LABS: Calcium 8.4 mg/dl (8.6-10.3); Creatinine Clr Calc Pharmacy 122.4 ml/min; Est GFR (African American) 119.8 ml/min; Est GFR (Non-African American) 103.4 ml/min; Potassium 4.1 mmol/L (3.5-5.1)
[2023-05-29 05:54] LABS: Troponin I High Sensitivity 51.9 pg/ml (0-14)
--- NOTE | 2023-05-29 08:15 | Hospitalist Progress Note ---
Date of Service May 29, 2023 Assessment & Plan (1) Hypotension: Plan: 58 F with CAD + HFrEF s/p recent catheterization and stent placement on 05/12/2023 who presents with concern for hypotension and admitted for management of elevated troponin discovered on work-up. Hypotension -Patient reported dizziness, blurry vision at home. BPs at home range from 60s/40s to 80s/50s. Lactate negative (0.7). -Pressures in the ED have been normal (130s systolic/80s diastolic). -Some concern for orthostatic hypotensionhowever, patient takes all her HF meds in the morning without fail. (2) Acute HFrEF (heart failure with reduced ejection fraction): Plan: Acute HFrEF/s/p insertion of HARRIETT in the LAD artery/CAD -Optimized on ASA/Plavix, losartan, Toprol, spironolactone. -Continue these meds on admission, as patient takes these in the morning, lowering suspicion presenting dizziness and hypotension 2/2 orthostatic hypotension. * Continue home regimen: Losartan 25 mg daily, metoprolol 25 mg daily, spironolactone 25 mg daily, aspirin 81 mg daily, clopidogrel 75 mg daily. Elevated troponin, demand ischemia with low BP - 50.6 on admission. Patient denies chest pain but reports some chest tightness has now resolved. -recent Cardiac cath and PCI stent LAD 05/12/23, complicated by uterine bleeding and suspicioius mass found in uterus * A.m. echocardiogram pending * Cardiology consult with [facility] Cardiology (3) Poorly controlled diabetes mellitus: Plan: Acute hyperglycemia/diabetes mellitus, type II -History of diabetes diagnosed in 2016. Initially managed with significant weight loss, lifestyle changes. -However, hemoglobin A1c 11.1 at last check on 05/10/23. Subsequently started on Novolin 70/30 insulin (23 units every morning, 10 units nightly). Jardiance also prescribed. -BSG 208 on this admission. * Lantus basal (12 units every morning; 5 units nightly) * SSI coverage (CF = 30; CR = 10; goal range 100-140) * A.m. hemoglobin A1c (4) Post-menopause bleeding: Plan: Postmenopausal bleeding -Endometrial mass (~4.7 cm) discovered post-catheterization/stent placement. Patient has been postmenopausal for 6 years. Sample removed for testing, suspected to be malignant. -[facility] gynecology follow-up for endometrial biopsy pending. Still has intermittent vaginal bleeding. * Follow-up with gynecology as outpatient Plan full code Admission and Anticipated Discharge Date Admission Date: May 29, 2023 Subjective Patient was seen in emergency department she did not have any persistent discomfort since admission. She continues to have intermittent vaginal bleeding and awaiting further work-up until 1 month after her catheterization so that a pause in her dual antiplatelets would not have to be Physical Exam Physical Exam: awake alert appropriate cardiac exam is regular without murmurs lungs are clear without wheezes or crackles Results & Data Results & Data Vital Signs (Past 12 Hours) Vital Signs Temp Pulse Pulse Resp BP BP Pulse Ox 05/29/23 06:00 68 16 142/106 H 96 05/29/23 05:00 72 18 128/80 92 05/29/23 04:00 68 16 100/60 94 05/29/23 02:00 73 16 141/87 H 97 05/29/23 00:00 72 05/29/23 00:44 76 18 133/87 98 05/29/23 00:34 68 20 98 05/29/23 00:33 98 05/28/23 23:03 72 18 131/89 97 05/28/23 22:56 98.2 F 76 20 138/82 98 O2 Del Method 05/29/23 06:00 Room Air 05/29/23 05:00 Room Air 05/29/23 04:00 Room Air 05/29/23 02:00 Room Air 05/29/23 00:00 05/29/23 00:44 Room Air 05/29/23 00:34 Room Air 05/29/23 00:33 Room Air 05/28/23 23:03 Room Air 05/28/23 22:56 Room Air PG Care Time/CCT Total # of Minutes Spent Total Time Spent with Patient: Total time spent is greater than 50% in coordination of care (as documented) at patient's floor/unit and/or counseling patient: Coding Level of Care Code None Diagnoses Hypotension I95.9 Acute HFrEF (heart failure with reduced ejection fraction) I50.21 Poorly controlled diabetes mellitus E11.65 Post-menopause bleeding N95.0
--- NOTE | 2023-05-29 08:17 | XRay Report ---
XR chest 1V portable HISTORY: weakness COMPARISON: Chest 05/09/2023. FINDINGS: The cardiac silhouette remains borderline enlarged. The lungs are clear. No pleural effusio ns. No pneumothorax. No evidence for pulmonary edema. IMPRESSION: No significant change compared to the prior study. No acute process. ACT 112: Negative or not required by law. Electronically signed by: Markell Belcher M.D. 05/29/2023 8:16 AM
[2023-05-29] MEDS: ASPIRIN 81 MG ECTAB PO SCH (10:00)
[2023-05-29] MEDS: INSULIN ASPART PER UNIT CHARGE SC SCH ×4 (10:00→21:45)
[2023-05-29] MEDS: METOPROLOL SUCC 25MG EXT REL TAB PO SCH (10:01)
[2023-05-29] MEDS: SPIRONOLACTONE 25 MG TAB PO SCH (10:01)
[2023-05-29] MEDS: CLOPIDOGREL BISULFATE 75 MG TAB PO SCH (10:01)
[2023-05-29] MEDS: LOSARTAN POTASSIUM 25 MG TAB PO SCH (10:01)
[2023-05-29] MEDS: EZETIMIBE 10 MG TAB PO SCH (10:01)
[2023-05-29] MEDS: ATORVASTATIN 40 MG TAB PO SCH (10:01)
[2023-05-29] MEDS: LANTUS PER UNIT CHARGE SQ SCH (10:07)
[2023-05-29] MEDS ORDERED: PNEUMOCOCCAL POLYSACCHARIDES 25 MCG/0.5 ML VIAL/SYR IM ONE (14:00)
--- NOTE | 2023-05-29 19:39 | Billing Data ---
Date of Service May 29, 2023 Coding Level of Care Code 63726 INT INP/OBS CARE
[2023-05-29] MEDS ORDERED: LANTUS PER UNIT CHARGE SQ SCH (21:00)
[2023-05-30 06:08] LABS: Hematocrit (blood only) 39.1 % (37.0-47.0); Hemoglobin 12.9 g/dl (12.0-16.0); Mean Corpuscular Hemoglobin 26.7 pg (25.0-34.0); Mean Corpuscular Volume 80.8 fL (80.0-100.0); Mean Platelet Volume 9.4 fL (9.4-12.4); Platelet Count 258 K/uL (130-400); RDW Coefficient of Variation 12.9 % (11.5-14.5); RDW Standard Deviation 37.9 fL (36.4-46.3); Red Blood Count 4.84 M/uL (4.20-5.40); White Blood Count 4.31 K/ul (4.8-10.8)
[2023-05-30 06:26] LABS: BUN Creatinine Ratio 32.2 (10-20); Creatinine Clr Calc Pharmacy 113.1 ml/min; Est GFR (African American) 117.1 ml/min; Phosphorus 4.7 mg/dl (2.5-4.9); Potassium 4.4 mmol/L (3.5-5.1)
--- NOTE | 2023-05-30 07:52 | Hospitalist Progress Note ---
Date of Service May 30, 2023 Assessment & Plan (1) Hypotension: Plan: 58 F with CAD + HFrEF s/p recent catheterization and stent placement on 05/12/2023 who presents with concern for hypotension and admitted for management of elevated troponin discovered on work-up. Hypotension -Patient reported dizziness, blurry vision at home. , vitals are improved Elevated troponin - 50.6- 51 Patient denies chest pain but reports some chest tightness has now resolved. Troponin pre-cath on 05/10 with 32.5. Acute hyperglycemia/diabetes mellitus, type II -History of diabetes diagnosed in 2016. Initially managed with significant weight loss, lifestyle changes. -However, hemoglobin A1c 11.1 at last check on 05/10/23. Subsequently started on Novolin 70/30 insulin (23 units every morning, 10 units nightly). Jardiance also prescribed. -BSG 208 on this admission. * Lantus basal (12 units every morning; 5 units nightly) * SSI coverage (CF = 30; CR = 10; goal range 100-140) * A.m. hemoglobin A1c Acute HFrEF/s/p insertion of HARRIETT in the LAD artery/CAD - echocardiogram, shows EF 25% large area of hypokinesis and akinesis, will ask cardiology of [facility] to be started this stay and if pt would be candidate for chest vest -Optimized on ASA/Plavix, losartan, Toprol, spironolactone. -Continue these meds on admission, as patient takes these in the morning, lowering suspicion presenting dizziness and hypotension 2/2 orthostatic hypotension. * Continue home regimen: Losartan 25 mg daily, metoprolol 25 mg daily, spironolactone 25 mg daily, aspirin 81 mg daily, clopidogrel 75 mg daily. Dyslipidemia -Chronic. Managed on atorvastatin and Zetia, although patient has documented history of noncompliance. * Continue home atorvastatin, Zetia. Postmenopausal bleeding -Endometrial mass (~4.7 cm) discovered post-catheterization/stent placement. Patient has been postmenopausal for 6 years. Sample removed for testing, suspected to be malignant. -[facility] gynecology follow-up for endometrial biopsy pending. Still has intermittent vaginal bleeding. * Follow-up with gynecology as outpatient Code: Full code DVT Prophylaxis: Deferring due to persistent postmenopausal bleeding (2) Elevated troponin: (3) Acute hyperglycemia: (4) Acute HFrEF (heart failure with reduced ejection fraction): (5) Poorly controlled diabetes mellitus: (6) Hyperlipidemia: (7) Status post insertion of drug-eluting stent into left anterior descending (LAD) artery: (8) Post-menopause bleeding: Admission and Anticipated Discharge Date Admission Date: May 29, 2023 Results & Data Results & Data Vital Signs (Past 12 Hours) Vital Signs Temp Pulse Pulse Resp BP BP Pulse Ox 05/30/23 03:11 97.7 F 69 14 125/84 98 05/29/23 22:41 97.7 F 73 18 116/75 98 05/29/23 20:00 67 14 107/68 100 05/29/23 21:53 74 114/56 L O2 Del Method 05/30/23 03:11 Room Air 05/29/23 22:41 Room Air 05/29/23 20:00 Room Air 05/29/23 21:53 PG Care Time/CCT Total # of Minutes Spent Total Time Spent with Patient: Total time spent is greater than 50% in coordination of care (as documented) at patient's floor/unit and/or counseling patient: Coding Diagnoses Hypotension I95.9 Elevated troponin R77.8 Acute hyperglycemia R73.9 Acute HFrEF (heart failure with reduced ejection fraction) I50.21 Poorly controlled diabetes mellitus E11.65 Hyperlipidemia E78.5 Status post insertion of drug-eluting stent into left anterior descending (LAD) artery Z95.5 Post-menopause bleeding N95.0
[2023-05-30 08:03] LABS: Estimated Average Glucose 240 mg/dl
[2023-05-30] MEDS: INSULIN ASPART PER UNIT CHARGE SC SCH ×2 (08:32→12:33)
[2023-05-30] MEDS: METOPROLOL SUCC 25MG EXT REL TAB PO SCH (08:33)
[2023-05-30] MEDS: EZETIMIBE 10 MG TAB PO SCH (08:33)
[2023-05-30] MEDS: LANTUS PER UNIT CHARGE SQ SCH (08:33)
[2023-05-30] MEDS: SPIRONOLACTONE 25 MG TAB PO SCH (08:33)
[2023-05-30] MEDS: ATORVASTATIN 40 MG TAB PO SCH (08:34)
[2023-05-30] MEDS: LOSARTAN POTASSIUM 25 MG TAB PO SCH (08:34)
[2023-05-30] MEDS: ASPIRIN 81 MG ECTAB PO SCH (08:34)
[2023-05-30] MEDS: CLOPIDOGREL BISULFATE 75 MG TAB PO SCH (08:34)
--- NOTE | 2023-05-30 09:50 | Cardiology Consultation ---
Date of Consultation May 30, 2023 Assessment & Plan (1) Hypotension: (2) Post-menopause bleeding: (3) Ischemic cardiomyopathy: (4) HFrEF (heart failure with reduced ejection fraction): (5) Elevated troponin: Plan Intermittent hypotension. Decrease spironolactone to 1/2 tablet daily. Mildly elevated high sensitivity Troponin I. - Known ischemic cardiomyopathy - NYHA Class II CHF, EF 25-30%, narrow QRS duration, maintaining sinus rhythm. - Status post PCI of the LAD on 05/12/2023. - Multivessel/residual disease as noted below. - EKG without acute change. - ECHO stable. - Patient without overt angina. - Recommend continued medical management. - Continue GDMT as tolerated (Entresto and Jardiance are currently cost prohibitive): - Continue the LifeVest. - Following correction of the vaginal bleeding would consider referral for Lexiscan nuclear stress testing. - Repeat TTE in August 2023, 3 months post PCI. If LVEF remains less than 35% will refer to EP for primary prevention ICD implantation. Dyslipidemia. Continue atorvastatin 40 mg/day and ezetimibe 10 mg/day Supervising Physician Co-Signing Physician Notes Patient seen and examined at the bedside. Asymptomatic since admission. Preadmission symptoms of hypotension lightheadedness. Normal blood pressure since admission. Chest pain-free since admission with mildly elevated high- sensitivity troponin. Repeat echocardiogram unchanged. PE: Gen: NAD, AAOx3. Heart: Regular rhythm, normal S1-S2. No murmur. Lungs: Clear bilateral, no rales, rhonchi, wheezing or extremities: No edema. A/P: Agree with above PA-C history, physical exam, assessment and plan. Decrease spironolactone to 1/2 tablet daily due to transient hypotension. Otherwise continue goal-directed medical therapy as tolerated and LifeVest as o rdered. Ongoing evaluation regarding vaginal bleeding prior to referral for repeat stress testing to assess ischemic burden in the future. Repeat 2D transthoracic echocardiogram 3 months after optimization of goal-directed medical therapy. Continue atorvastatin, Zetia, losartan, spironolactone, clopidogrel, aspirin,and beta-lashonda as ordered. History of Present Illness Reason for Consultation: Stent on , CP, Troponin 50 Requesting Physician: Diana Attending Physician: Diana History of Present Illness Patient hospitalized at [facility] 05/09/2023 to 05/14/2023, presenting to the ER with chest pain, dyspnea, cough and congestion x 1 week - PCR positive for rhinovirus/enterovirus. EKG revealed an age undetermined septal infarction pattern. Echocardiogram performed 05/10/2023 revealed a large sized apical, septal, and anteroseptal wall motion abnormality with hypokinesis to akinesis of the segments, thinning of the anteroseptal wall which was aneurysmal, EF 25-30%. High sensitivity troponin 42. Chest x-ray consistent with CHF. It was felt that she had an MO at some point however she was not having active/overt angina. After treatment of the pneumonia/bronchitis and CHF patient underwent cardiac catheterization on 05/12/2023 which revealed multivessel CAD hazy mid LAD stenosis status post PCI with a 3.0 x 26 mm Gurpreet HARRIETT, 60% proximal LAD stenosis, 70% stenosis in small distal circumflex, and a 40 to 50% distal RCA extending into RPLB1. Normal intracardiac filling pressure noted. A few hours after cardiac catheterization she developed significant uterine bleeding. Pelvic ultrasound revealed a 4.7 centimeter uterine mass suspicious for malignancy. D&C with hysteroscopy is currently planned the first week in June (4 weeks post stent placement). She continues to have mild intermittent vaginal bleeding. On Tuesday, May 28, 2023 around 8 PM she experienced symptoms that she initially felt were due to hypoglycemia which she has had numerous times in the past, typically in the evenings. Symptoms are hard to explain, "it felt like everything was draining." Blood glucose was 190 (two hours after eating supper). She then checked her blood pressure and observed hypotension. Patient then performed an internet search for "low blood pressure." "It said anything below 90 needed to get checked out right away." Patient notes "I didn't think I needed to because I didn't feel that bad." She did have some chest tightness that seemed to be aggravated by inspiration. She also notes right arm discomfort from the shoulder to the elbow, worse with certain movements and has a history of right rotator cuff issues. BP on presentation to the [facility] ER on 05/28/2023 was 138/81. Occasional readings noted down to 100/60 this admission. The highest recorded SBP this admission was 158/67. EKG on admission revealed normal sinus rhythm at 68 bpm with an old septal infarct, nonspecific ST abnormality anteriorly. Resting echocardiography on 05/29/2023 revaled no significant change when compared to prior, severely reduced systolic function, EF 25-30%, large sized apical, septal, and anteroseptal wall motion abnormality with hypokinesis to akinesis of the segments. LifeVest in place. Continuous telemetry has revealed sinus with atrial ectopy, heart rates predominately in the 60's and 70's. Chest x-ray on presentation shows no acute process. No activity related chest pain or tightness. No sublingual nitroglycerin use. No palpitations. Chronic stable shortness of breath and cough productive of phlegm without orthopnea, PND, or peripherial edema. No syncope. No fevers or chills. No epistaxis, hemoptysis, melena, hematochezia, or hematuria. Patient has been compliant with the LifeVest as well as medications which include aspirin 81 mg/day, clopidogrel 75 mg/day, metoprolol succinate 25 mg/day, losartan 25 mg/day, spironolactone 25 mg/day, atorvastatin 40 mg/day, and ezetimibe 10 mg/day. Allergies Allergy/AdvReac Type Severity Reaction Status Date / Time bee venom protein (honey bee) Allergy Severe Anaphylaxis Verified 05/23/23 09:55 metformin AdvReac Vomiting Verified 05/23/23 09:55 Home Medications Medication Instructions Recorded Confirmed Type acetaminophen 500 mg tablet 1,000 mg PO Q6H PRN Fever Or Pain 05/10/23 05/28/23 History (Tylenol Extra Strength) aspirin 81 mg tablet,delayed 81 mg PO QAM 30 days #30 tabs 05/14/23 05/28/23 Rx release atorvastatin 40 mg tablet 40 mg PO QAM 30 days #30 tabs 05/14/23 05/28/23 Rx blood sugar diagnostic ([facility] #100 ea 05/14/23 05/29/23 Rx Verio test strips) clopidogrel 75 mg tablet 75 mg PO QAM 30 days #30 tabs 05/14/23 05/28/23 Rx ezetimibe 10 mg tablet (Zetia) 10 mg PO DAILY #30 tabs 05/14/23 05/28/23 Rx lancets 33 gauge ([facility] Karen #100 ea 05/14/23 05/29/23 Rx Plus Lancet) losartan 25 mg tablet 25 mg PO DAILY #30 tabs 05/14/23 05/28/23 Rx metoprolol succinate 25 mg 25 mg PO QAM 30 days #30 tabs 05/14/23 05/28/23 Rx tablet,extended release 24 hr pen needle, diabetic 32 gauge x #100 ea 05/14/23 05/29/23 Rx /32" spironolactone 25 mg tablet 25 mg PO DAILY #30 tabs 05/14/23 05/28/23 Rx insulin NPH-regular 70-30 U-100 See Rx Instructions .Route 05/23/23 05/28/23 Rx insulin 100 unit/mL subcutaneous .COMPLEX #5 syringes pen (Novolin 70-30 FlexPen U-100 Insulin) Patient History Surgical History History of tonsillectomy age 19 Family History Grandmother (Paternal) Breast cancer Brother Myocardial infarction Denies family history of Ovarian cancer Prostate cancer Colorectal cancer Social History Smoking Status: Never smoker Tobacco Type: Cigarettes and E-cigarettes / Vaping Age Started Using Tobacco: 26; Age Quit Using Tobacco: 30; Second Hand Exposure: No; Do You Dip or Chew Tobacco: No; Hx Alcohol Use: No Hx Substance Use: No Preferred Language: Albanian Communication Ability: Effective Water Resource Consultant Required: No Beliefs That Will Affect Care: None marital status: Single Current Living Situation: Alone current occupational status: other 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 Physical Exam Physical Exam: General: A&Ox3. NAD. HENT: Normocephalic. Atraumatic. Eyes: PER. Conjunctiva pink, sclera clear. Neck: No carotid bruits. No JVD. No HJR. Heart: RRR, 74 bpm. No murmur. No rub. No gallop. Lungs: Diminished. Decreased. Scattered rhonchi that resolve post cough. No wheeze. Abdomen: +BS. Soft. Nontender. No masses or organomegaly. Extremities: No clubbing, cyanosis, or edema. Limited neurological examination is without focal deficits. Pulses: radial=2/4, posterior tibial=2/4. Results & Data Vital Signs (Past 12 Hours) Vital Signs Temp Pulse Pulse Pulse Resp BP BP 05/30/23 08:00 67 05/30/23 07:52 36.9 C 68 19 106/63 05/30/23 03:11 36.5 C 69 14 125/84 05/29/23 22:41 36.5 C 73 18 116/75 05/29/23 21:53 74 114/56 L Pulse Ox O2 Del Method 05/30/23 08:00 05/30/23 07:52 98 Room Air 05/30/23 03:11 98 Room Air 05/29/23 22:41 98 Room Air 05/29/23 21:53 Laboratory Results CBC 05/30/23 Range/Units 05:30 WBC 4.31 L (4.8-10.8) K/ul RBC 4.84 (4.20-5.40) M/uL Hgb 12.9 (12.0-16.0) g/dl Hct 39.1 (37.0-47.0) % Plt Count 258 (130-400) K/uL Comprehensive Metabolic Panel 05/30/23 Range/Units 05:30 Sodium 135 L (136-145) mmol/L Potassium 4.4 (3.5-5.1) mmol/L Chloride 100 (98-107) mmol/L Carbon Dioxide 30 (21-32) mmol/L BUN 19 (6-23) mg/dl Creatinine 0.59 L (0.6-1.2) mg/dl Glucose 196 H (70-99(Fasting)) mg/dl Calcium 9.0 (8.6-10.3) mg/dl Intake and Output 05/29/23 05/30/23 05/30/23 22:59 06:59 14:59 Intake Total 1000 / 1000 Balance 1000 / 1000 Intake: Oral 1000 / 1000 Other: Weight 90.3 kg Weight Measurement Method Standing Scale
--- NOTE | 2023-05-30 09:58 | Electrocardiogram Report ---
Test Reason : Blood Pressure : / mmHG Vent. Rate : 068 BPM Atrial Rate : 068 BPM P-R Int : 146 ms QRS Dur : 080 ms QT Int : 408 ms P-R-T Axes : 061 046 100 degrees QTc Int : 433 ms Normal sinus rhythm Septal infarct (cited on or before 09-MAY-2023) Abnormal ECG When compared with ECG of 12-MAY-2023 16:29, Non-specific change in ST segment in Anterior leads T wave inversion no longer evident in Lateral leads Confirmed by Shukri Pollard ([id number]) on 05/30/2023 9:58:22 AM Referred By: REFERRED SELF Confirmed By:Shukri Pollard
--- NOTE | 2023-05-30 14:20 | Discharge Summary ---
Date of Service May 30, 2023 Principal Diagnosis hypotension secondary to medications elevated troponin secondary to demand ischemia Discharge Exam awake and alert resolution of symptoms cardiac exam is regular Discharge Data Allergies Allergy/AdvReac Type Severity Reaction Status Date / Time bee venom protein (honey bee) Allergy Severe Anaphylaxis Verified 05/23/23 09:55 metformin AdvReac Vomiting Verified 05/23/23 09:55 Consultations 05/29/23 02:01 ED Decision to Admit Stat 05/29/23 08:15 Consult Cardiology Routine Hospital Course (1) Hypotension: 58 F with CAD + HFrEF s/p recent catheterization and stent placement on 05/12/2023 who presents with concern for hypotension and admitted for management of elevated troponin discovered on work-up. Hypotension -Patient reported dizziness, blurry vision at home. , vitals are improved cardiology recommends reducing losartan and spironolactone by 50% this will need to be accomplished by pill cutter. If unable to do this at home may consider discontinuing spironolactone on favor of keeping losartan Elevated troponin - 50.6- 51 secondary to demand ischemia from lower blood pressure cardiology did evaluate and felt there is no need for further intervention Patient denies chest pain but reports some chest tightness has now resolved. Troponin pre-cath on 05/10 with 32.5. Acute hyperglycemia/diabetes mellitus, type II -History of diabetes diagnosed in 2016. Initially managed with significant weight loss, lifestyle changes. -However, hemoglobin A1c 11.1 at last check on 05/10/23. Subsequently started on Novolin 70/30 insulin (23 units every morning, 10 units nightly). Jardiance also prescribed. A!C improved to 10 patient having some challenges getting Jardiance due to cost we will continue with the 7030 and continue to work with outpatient case management to try to switch her Jardiance Acute HFrEF/s/p insertion of HARRIETT in the LAD artery/CAD - echocardiogram, shows EF 25% large area of hypokinesis and akinesis, will ask cardiology of [facility] to be started this stay and if pt would be candidate for chest vest -Optimized on ASA/Plavix, losartan, Toprol, spironolactone. -Continue these meds on admission, as patient takes these in the morning, lowering suspicion presenting dizziness and hypotension 2/2 orthostatic hypotension. * Continue home regimen: Losartan 12.5 mg daily, metoprolol 25 mg daily, spironolactone 12.5 mg daily, aspirin 81 mg daily, clopidogrel 75 mg daily. Dyslipidemia -Chronic. Managed on atorvastatin and Zetia, although patient has documented history of noncompliance. * Continue home atorvastatin, Zetia. Postmenopausal bleeding -Endometrial mass (~4.7 cm) discovered post-catheterization/stent placement. Patient has been postmenopausal for 6 years. Sample removed for testing, suspected to be malignant. -[facility] gynecology follow-up for endometrial biopsy pending. Still has inter mittent vaginal bleeding. * Follow-up with gynecology as outpatient 1 month after initial catheterization to allow for dual antiplatelet therapy for a minimum of 30 days Code: Full code Total Time Total Time Spent Total Time Spent (In Minutes): it required greater than 30 minutes to prepare this patient for discharge Discharge Plan Discharge Items Patient Disposition: Home - Self-Care Reason For Visit: HYPOTENSION, ELEVATED TROPONIN Discharge Diagnosis: low blood pressure due to medication elevated troponin due to low blood pressure Activity: Resume your previous activity Non-emergency contact: Primary Care Provider and Data Sme Call non-emergency contact if: your symptoms worsen Follow-up/Referrals: Denia Reid CRNP [Primary Care Provider] - Diet: Heart Healthy Addtl Attending Provider Instructions: please reduce your medications as described by Dr Wren, new Rx will be sent to the pharmacy Pending Studies at Discharge: No Stand-Alone Forms: [facility] Sm[facility] Cess[facility] Medications and DC Order Prescriptions: Continued Novolin 70-30 FlexPen U-100 100 unit/mL (70-30) insulin pen See Rx Instructions .ROUTE .COMPLEX Qty: 5 1RF Rx Instructions: Take 23 units in the morning and 10 units at night acetaminophen [Tylenol Extra Strength] 500 mg Tablet 1,000 mg PO Q6H PRN (Reason: Fever Or Pain) atorvastatin 40 mg Tablet 40 mg PO QAM 30 Days Qty: 30 1RF clopidogrel 75 mg Tablet 75 mg PO QAM 30 Days Qty: 30 1RF aspirin 81 mg Tablet,Delayed Release (Dr/Ec) 81 mg PO QAM 30 Days Qty: 30 1RF metoprolol succinate 25 mg Tablet Extended Release 24 Hr 25 mg PO QAM 30 Days Qty: 30 1RF (DME) pen needle, diabetic 32 gauge x 5/32" needle See Rx Instructions .Route Qty: 100 1RF Rx Instructions: Use twice a day (DME) OneTouch Verio test strips Strip See Rx Instructions .Route Qty: 100 1RF Rx Instructions: Check 3 times a day (DME) lancets [OneTouch Delica Plus Lancet] 33 gauge misc See Rx Instructions .Route Qty: 100 1RF Rx Instructions: Check 3 times a day ezetimibe [Zetia] 10 mg tablet 10 mg PO DAILY Qty: 30 1RF Changed spironolactone 25 mg tablet 12.5 mg PO DAILY Qty: 30 1RF losartan 25 mg tablet 12.5 mg PO DAILY Qty: 30 1RF Discharge Orders: Discharge Order (Routine); Ordered 05/30/23 Ordered By: Santana Ortiz Admission Data Admit Date/Time: 05/29/23 01:35 Attending Provider: Santana Ortiz Admit Provider: Jory Aguilar Primary Care Provider: Denia Reid Other Providers: David Kwon ; Santana Wren Coding Level of Care Code 97714 INP/OBS DISCH >30 MIN Diagnoses Hypotension I95.9
== END 2023-05-30 16:03 | disposition home or self-care (01) | DRG 312 ==
LOC: ED 22:54 → SUATTDRO 05-29 01:35 → EDINP 05-29 01:35 → 2W 05-29 03:53

== ENCOUNTER 2025-08-14 12:23 | Inpatient (IN) ==
[2025-08-14 13:22] LABS: Hematocrit (blood only) 35.9 % (37.0-47.0); Hemoglobin 12.0 g/dl (12.0-16.0); Immature Granulocytes # (auto) 0.04 K/uL (0.01-0.20); Immature Granulocytes % (auto) 0.5 %; Mean Corpuscular Hemoglobin 27.3 pg (25.0-34.0); Mean Corpuscular Volume 81.8 fL (80.0-100.0); Platelet Count 368 K/uL (130-400); RDW Standard Deviation 37.4 fL (36.4-46.3); Red Blood Count 4.39 M/uL (4.20-5.40); White Blood Count 8.04 K/ul (4.8-10.8)
[2025-08-14 13:44] LABS: Alanine Aminotransferase 7.0 U/L (7-52); Albumin Globulin Ratio 0.9 (0.9-2); Albumin Level 3.6 gm/dl (3.4-5.0); Alkaline Phosphatase 108.0 U/L (34-104); Anion Gap 10.0 (3-11); Bilirubin,Total 0.4 mg/dl (0.2-1.0); Blood Urea Nitrogen 18.0 mg/dl (6-23); Calcium 8.9 mg/dl (8.6-10.3); Carbon Dioxide 27.0 mmol/L (21-32); Chloride 92.0 mmol/L (98-107); Creatinine Clr Calc Pharmacy 70.5 ml/min; Globulin 3.8 gm/dl (2.5-4.0); Glucose 449.0 mg/dl (70-99(Fasting)); Potassium 4.0 mmol/L (3.5-5.1); Sodium 129.0 mmol/L (136-145); Total Protein 7.4 gm/dl (6.0-8.3)
[2025-08-14] MEDS: cefTRIAXone SODIUM 2,000 MG/50 ML BAG IV STA (15:27)
--- NOTE | 2025-08-14 16:09 | Emergency Department Note ---
Impression & Plan Cellulitis ED Provider Note NAME: VALENTINA GARCIA AGE: 60 SEX: F : 1965 ARRIVES VIA: Walk-In INFORMANT: Patient, ED PROVIDER(S): Carleen Nassar MD CHIEF COMPLAINT: Abdominal abscess HPI: This is a 60 YO F, presenting for abdominal abscess. Patient was seen here last 08/03 for abdominal abscess. Patient was seen and started on p.o. antibiotics, Bactrim. Patient had noted somewhat improved symptoms but is followed with primary care doctor who noted continued purulent drainage. Patient was seen by Dr. Barker, general surgeon, this morning and was advised to come back to the ER for IV antibiotics. Patient has had no fevers, chills, nausea or vomiting. She noted persistent purulent drainage without worsening of the redness. ROS: See above HPI for pertinent positives & negatives. A total of 10 systems reviewed and were otherwise negative. PAST MEDICAL HISTORY: See Below PAST SURGICAL HISTORY: See Below FAMILY HISTORY: See Below SOCIAL HISTORY: See Below HOME MEDICATIONS: See Below ALLERGIES: See Below VITALS: See Below PHYSICAL EXAMINATION: General: resting comfortably in no acute distress Head: Normocephalic and atraumatic Eyes: Normal inspection, extraocular muscles intact Ear, nose, throat: Normal external exam Neck: Normal range of motion Respiratory: lungs clear to auscultation bilaterally Cardiovascular: Regular rate/rhythm, no murmur GI: soft, nontender, no guarding or rebound Extremities: nontender, moves all extremities Neuro: The patient awake and alert, appropriately conversive, no focal deficits, symmetric faces Skin: Warm, dry, and intact MEDICAL DECISION MAKING: This is 60-year-old female presenting for abdominal abscess. Patient has active drainage of this abdominal wound. It appears to have minimal surrounding erythema. Patient was sent in by surgery for admission. Will give antibiotics at this time, ceftriaxone and daptomycin. - I performed bedside ultrasound reveals slight cellulitis overlying wound otherwise no large deep abscess. - Bloodwork is reviewed showing no significant leukocytosis, anemia, electrolyte or creatinine abnormality. Elevated glucose without signs of DKA -Care discussed with Dr. Monteiro for admission Differential diagnosis: Abscess, cellulitis Independent History obtained from: Diagnostics interpreted by me: ECG: None Cardiac Monitoring: An order was placed for continuous cardiac monitoring. The monitor shows a rate of 75 with sinus rhythm. Past Med/Surg History Problem List (Updated 08/14/25 @ 17:50 by Carleen Nassar MD) Asthma Abdominal wall abscess Pseudohyponatremia (Acute) Acute hyperglycemia (Acute) Cellulitis (Acute) Peripheral edema Diabetes mellitus treated with insulin and oral medication Obesity CAD (coronary artery disease) PCI of mid LAD with HARRIETT 05/12/23 Ischemic cardiomyopathy compensated; improved Post-menopause bleeding Status post insertion of drug-eluting stent into left anterior descending (LAD) artery Hypertension Hyperlipidemia Medical History (Updated 08/14/25 @ 17:50 by Carleen Nassar MD) History of asthma History of recent hospitalization pt admitted [facility] 05/09/23-05/14/23: dx PNA, HF with reduced EF, ischemic CM, CAD (s/p stent placement), postmenopausal bleeding with uterine mass. Pt readmitted 05/29/23-05/30/23 for hypotension 2/2 medications and elevated troponin 2/2 demand ischemia Encounter for pre-operative examination Hypertension Hyperlipidemia Diabetes mellitus, type 2 IDDM; 05/29/23 Ha1c: 10.0% Surgical History (Updated 08/14/25 @ 11:53 by Xiomara Farley, RN) History of dilatation and curettage x2 History of esophagogastroduodenoscopy (EGD) History of heart artery stent (2022) 05/12/23, [facility], "shortness of breath-went to ER-found to have had a heart attack 3-4 weeks earlier, also dx with pneumonia">x1 stent; f/u dr. herrera, s History of cardiac cath 05/12/23, [facility], "shortness of breath-went to ER-found to have had a heart attack 3-4 weeks earlier, also dx with pneumonia">x1 stent; f/u dr. herrera, s History of tonsillectomy (1983) age 19 Family History (Updated 08/14/25 @ 11:55 by Xiomara Farley, BLANCO) Grandmother (Paternal) Breast cancer Brother Myocardial infarction Heart disease Family/Other Heart disease Denies family history of Ovarian cancer Prostate cancer Colorectal cancer Social History (Updated 08/14/25 @ 11:54 by Xiomara Farley, RN) Smoking Status: Former smoker Tobacco Type: Cigarettes Age Started Using Tobacco: 26; Age Quit Using Tobacco: 30; packs per day: 2; Second Hand Exposure: No; Do You Dip or Chew Tobacco: No; Hx Alcohol Use: No Hx Substance Use: No Preferred Language: German Communication Ability: Effective Patient Services Clerk Required: No Beliefs That Will Affect Care: None marital status: Life Partner Current Living Situation: Alone current occupational status: employed current occupation: [employer] How many Children do You have: 1 Feels Safe at Home: Yes Childhood Exposure to Second-Hand Smoke: Yes Diet: diabetic caffeine: Yes during the past year weight has: decreased > 10 lbs Dental Care, Regularly: Yes Physical Activity Frequency: Daily Seatbelt Use: always Sunscreen Use: Yes Assistive Devices: None Allergies Allergies Allergy/AdvReac Type Severity Reaction Status Date / Time bee venom protein (honey bee) Allergy Severe Anaphylaxis Verified 08/14/25 11:36 latex Allergy rash, Verified 08/14/25 11:36 itch, skin irritation metformin AdvReac Vomiting Verified 08/14/25 11:36 Home Meds Home Medications Medication Instructions Recorded Confirmed acetaminophen 500 mg tablet 1,000 mg PO Q6H PRN Fever Or Pain 05/10/23 08/14/25 (Tylenol Extra Strength) insulin glargine 100 unit/mL (3 0 unit subcut QPM 07/24/24 08/14/25 mL) subcutaneous pen (Lantus Solostar U-100 Insulin) nystatin 100,000 unit/gram topical 1 applic topical BID PRN Other 07/24/24 08/14/25 powder Previous Rx's Medication Instructions Recorded aspirin 81 mg tablet,delayed 81 mg PO QAM 30 days #30 tabs 05/14/23 release blood sugar diagnostic (OneTouch #100 ea 05/14/23 Verio test strips) lancets 33 gauge (OneTouch Delica #100 ea 05/14/23 Plus Lancet) pen needle, diabetic 32 gauge x #100 ea 05/14/23 5/32" blood-glucose,crossbar switch adjuster,cont #1 ea 08/04/23 (Dexcom G7 Social Worker Masters) albuterol sulfate 90 mcg/actuation 2 puff inhalation QID PRN 08/17/24 aerosol inhaler shortness of breath or wheezing #8.5 grams blood-glucose sensor (Dexcom G7 #3 ea 03/14/25 Sensor device) insulin aspart U-100 100 unit/mL See Rx Instructions subcut TID #15 03/14/25 (3 mL) subcutaneous pen (Novolog mL FlexPen U-100 Insulin aspart) losartan 50 mg-hydrochlorothiazide 1 tab PO DAILY #30 tabs 03/26/25 12.5 mg tablet clopidogrel 75 mg tablet 75 mg PO QAM 30 days #30 tabs 08/01/25 insulin human U-100 NPH-regulr 20 unit (0.2 mL) subcut BID #10 mL 08/13/25 70-30 mix 100 unit/mL subcutaneous susp (Humulin 70/30 U-100 Insulin) insulin syringe-needle U-100 0.3 #100 ea 08/13/25 mL 31 gauge x 5/16" metoprolol succinate 100 mg 100 mg PO DAILY #30 tabs 08/13/25 tablet,extended release 24 hr sulfamethoxazole 800 1 tab PO BID #20 tabs 08/13/25 mg-trimethoprim 160 mg tablet (Bactrim DS) Results & Data (ED) Vital Signs Vital Signs - 24 hr 08/14/25 12:29 08/14/25 12:47 08/14/25 12:47 Temperature 36.7 C Temperature Source Skin Pulse Rate 75 Pulse Rate [Apical] Pulse Rate from SpO2 Sensor Respiratory Rate 20 Respiratory Effort / Characteristics Non-Labored Spontaneous Respiratory Depth Normal Respiratory Pattern Regular Blood Pressure 109/66 105/58 L 105/58 L Blood Pressure [Right Arm] Blood Pressure Mean 80 74 74 Blood Pressure Mean [Right Arm] Blood Pressure Position [Right Arm] Pulse Oximetry 94 Oxygen Delivery Method Room Air Sepsis Recent Fever Within 48 Hours No Sepsis New/Unexplained Change in Mental Status N/A Sepsis Action Taken by Nursing No Action Required 08/14/25 12:47 08/14/25 12:49 08/14/25 12:50 Temperature 37.1 C Temperature Source Oral Pulse Rate 74 Pulse Rate [Apical] 72 Pulse Rate from SpO2 Sensor Respiratory Rate 12 Respiratory Effort / Characteristics Non-Labored Spontaneous Respiratory Depth Normal Respiratory Pattern Regular Blood Pressure 105/58 L Blood Pressure [Right Arm] 105/58 L Blood Pressure Mean 74 Blood Pressure Mean [Right Arm] 73 Blood Pressure Position [Right Arm] Semi-fowlers Pulse Oximetry 94 Oxygen Delivery Method Room Air Sepsis Recent Fever Within 48 Hours Sepsis New/Unexplained Change in Mental Status Sepsis Action Taken by Nursing 08/14/25 12:51 08/14/25 13:00 08/14/25 13:00 Temperature Temperature Source Pulse Rate 74 Pulse Rate [Apical] Pulse Rate from SpO2 Sensor 74 Respiratory Rate 21 Respiratory Effort / Characteristics Respiratory Depth Respiratory Pattern Blood Pressure 96/61 L 96/61 L Blood Pressure [Right Arm] Blood Pressure Mean 70 70 Blood Pressure Mean [Right Arm] Blood Pressure Position [Right Arm] Pulse Oximetry 94 Oxygen Delivery Method Sepsis Recent Fever Within 48 Hours Sepsis New/Unexplained Change in Mental Status Sepsis Action Taken by Nursing 08/14/25 13:00 08/14/25 13:00 08/14/25 13:00 Temperature Temperature Source Pulse Rate Pulse Rate [Apical] Pulse Rate from SpO2 Sensor Respiratory Rate Respiratory Effort / Characteristics Respiratory Depth Respiratory Pattern Blood Pressure 96/61 L 96/61 L 96/61 L Blood Pressure [Right Arm] Blood Pressure Mean 70 70 70 Blood Pressure Mean [Right Arm] Blood Pressure Position [Right Arm] Pulse Oximetry Oxygen Delivery Method Sepsis Recent Fever Within 48 Hours Sepsis New/Unexplained Change in Mental Status Sepsis Action Taken by Nursing 08/14/25 13:00 08/14/25 13:30 08/14/25 14:00 Temperature Temperature Source Pulse Rate 72 70 72 Pulse Rate [Apical] Pulse Rate from SpO2 Sensor 73 70 71 Respiratory Rate 16 21 17 Respiratory Effort / Characteristics Respiratory Depth Respiratory Pattern Blood Pressure Blood Pressure [Right Arm] Blood Pressure Mean Blood Pressure Mean [Right Arm] Blood Pressure Position [Right Arm] Pulse Oximetry 96 93 94 Oxygen Delivery Method Sepsis Recent Fever Within 48 Hours Sepsis New/Unexplained Change in Mental Status Sepsis Action Taken by Nursing 08/14/25 14:15 08/14/25 14:15 08/14/25 14:15 Temperature Temperature Source Pulse Rate Pulse Rate [Apical] Pulse Rate from SpO2 Sensor Respiratory Rate Respiratory Effort / Characteristics Respiratory Depth Respiratory Pattern Blood Pressure 103/58 L 103/58 L 103/58 L Blood Pressure [Right Arm] Blood Pressure Mean 73 73 73 Blood Pressure Mean [Right Arm] Blood Pressure Position [Right Arm] Pulse Oximetry Oxygen Delivery Method Sepsis Recent Fever Within 48 Hours Sepsis New/Unexplained Change in Mental Status Sepsis Action Taken by Nursing 08/14/25 14:15 08/14/25 14:15 08/14/25 14:15 Temperature Temperature Source Pulse Rate 69 Pulse Rate [Apical] Pulse Rate from SpO2 Sensor 70 Respiratory Rate 22 Respiratory Effort / Characteristics Respiratory Depth Respiratory Pattern Blood Pressure 103/58 L 103/58 L Blood Pressure [Right Arm] Blood Pressure Mean 73 73 Blood Pressure Mean [Right Arm] Blood Pressure Position [Right Arm] Pulse Oximetry 96 Oxygen Delivery Method Sepsis Recent Fever Within 48 Hours Sepsis New/Unexplained Change in Mental Status Sepsis Action Taken by Nursing 08/14/25 14:16 08/14/25 14:30 08/14/25 14:30 Temperature Temperature Source Pulse Rate Pulse Rate [Apical] 71 Pulse Rate from SpO2 Sensor Respiratory Rate 16 Respiratory Effort / Characteristics Non-Labored Spontaneous Respiratory Depth Normal Respiratory Pattern Regular Blood Pressure 98/50 L 98/50 L Blood Pressure [Right Arm] 103/58 L Blood Pressure Mean 64 64 Blood Pressure Mean [Right Arm] 73 Blood Pressure Position [Right Arm] Lying Pulse Oximetry 95 Oxygen Delivery Method Room Air Sepsis Recent Fever Within 48 Hours Sepsis New/Unexplained Change in Mental Status Sepsis Action Taken by Nursing 08/14/25 14:30 08/14/25 14:30 08/14/25 14:30 Temperature Temperature Source Pulse Rate Pulse Rate [Apical] Pulse Rate from SpO2 Sensor Respiratory Rate Respiratory Effort / Characteristics Respiratory Depth Respiratory Pattern Blood Pressure 98/50 L 98/50 L 98/50 L Blood Pressure [Right Arm] Blood Pressure Mean 64 64 64 Blood Pressure Mean [Right Arm] Blood Pressure Position [Right Arm] Pulse Oximetry Oxygen Delivery Method Sepsis Recent Fever Within 48 Hours Sepsis New/Unexplained Change in Mental Status Sepsis Action Taken by Nursing 08/14/25 14:30 08/14/25 15:00 08/14/25 15:00 Temperature Temperature Source Pulse Rate 68 68 Pulse Rate [Apical] Pulse Rate from SpO2 Sensor 70 67 Respiratory Rate 16 16 Respiratory Effort / Characteristics Respiratory Depth Respiratory Pattern Blood Pressure 99/59 L Blood Pressure [Right Arm] Blood Pressure Mean 66 Blood Pressure Mean [Right Arm] Blood Pressure Position [Right Arm] Pulse Oximetry 92 91 Oxygen Delivery Method Sepsis Recent Fever Within 48 Hours Sepsis New/Unexplained Change in Mental Status Sepsis Action Taken by Nursing 08/14/25 15:00 08/14/25 15:00 08/14/25 15:00 Temperature Temperature Source Pulse Rate Pulse Rate [Apical] Pulse Rate from SpO2 Sensor Respiratory Rate Respiratory Effort / Characteristics Respiratory Depth Respiratory Pattern Blood Pressure 99/59 L 99/59 L 99/59 L Blood Pressure [Right Arm] Blood Pressure Mean 66 66 66 Blood Pressure Mean [Right Arm] Blood Pressure Position [Right Arm] Pulse Oximetry Oxygen Delivery Method Sepsis Recent Fever Within 48 Hours Sepsis New/Unexplained Change in Mental Status Sepsis Action Taken by Nursing 08/14/25 15:00 08/14/25 16:00 08/14/25 17:10 Temperature Temperature Source Pulse Rate 75 Pulse Rate [Apical] 69 Pulse Rate from SpO2 Sensor Respiratory Rate 13 Respiratory Effort / Characteristics Respiratory Depth Respiratory Pattern Blood Pressure 99/59 L Blood Pressure [Right Arm] 100/61 Blood Pressure Mean 66 Blood Pressure Mean [Right Arm] 74 Blood Pressure Position [Right Arm] Semi-fowlers Pulse Oximetry 97 Oxygen Delivery Method Room Air Sepsis Recent Fever Within 48 Hours Sepsis New/Unexplained Change in Mental Status Sepsis Action Taken by Nursing Laboratory Data 08/14/25 13:00 08/14/25 13:00 Lab Results 08/14/25 Range/Units 13:00 WBC 8.04 (4.8-10.8) K/ul RBC 4.39 (4.20-5.40) M/uL Hgb 12.0 (12.0-16.0) g/dl Hct 35.9 L (37.0-47.0) % MCV 81.8 (80.0-100.0) fL MCH 27.3 (25.0-34.0) pg MCHC 33.4 (32.0-36.0) g/dL RDW Std Deviation 37.4 (36.4-46.3) fL RDW Coeff of Viktor 12.6 (11.5-14.5) % Plt Count 368 (130-400) K/uL MPV 9.5 (9.4-12.4) fL Immature Gran % (Auto) 0.5 % Neut % (Auto) 64.9 % Lymph % (Auto) 25.4 % Hardin % (Auto) 6.8 % Eos % (Auto) 2.0 % Baso % (Auto) 0.4 % Neut # (Auto) 5.22 (1.40-6.50) K/uL Lymph # (Auto) 2.04 (1.20-3.40) K/uL Hardin # (Auto) 0.55 (0.11-0.59) K/uL Eos # (Auto) 0.16 (0.00-0.50) K/uL Baso # (Auto) 0.03 (0.00-0.20) K/uL Immature Gran # (Auto) 0.04 (0.01-0.20) K/uL Sodium 129 L (136-145) mmol/L Potassium 4.0 (3.5-5.1) mmol/L Chloride 92 L (98-107) mmol/L Carbon Dioxide 27 (21-32) mmol/L Anion Gap 10 (3-11) BUN 18 (6-23) mg/dl Creatinine 0.98 (0.6-1.2) mg/dl Est Cr Clr Drug Dosing 70.5 ml/min eGFR 66.08 BUN/Creatinine Ratio 18.4 (10-20) Glucose 449 H* (70-99(Fasting)) mg/dl Calcium 8.9 (8.6-10.3) mg/dl Total Bilirubin 0.4 (0.2-1.0) mg/dl AST 12 L (13-39) U/L ALT 7 (7-52) U/L Alkaline Phosphatase 108 H (34-104) U/L Total Protein 7.4 (6.0-8.3) gm/dl Albumin 3.6 (3.4-5.0) gm/dl Globulin 3.8 (2.5-4.0) gm/dl Albumin/Globulin Ratio 0.9 (0.9-2) Administered Medications Discontinued Medications Ceftriaxone Sodium (Rocephin) 2,000 mg in 50 mls @ 100 mls/hr IV NOW STA Stop: 08/14/25 15:41 Last Infusion: 08/14/25 16:03 Dose: Infused Documented By: Admin: 08/14/25 15:27 Dose: 100 mls/hr Documented By: KAREN Daptomycin 675 mg/ Syringe 13.5 mls @ 6.75 mls/min IV NOW ONE; Protocol Stop: 08/14/25 15:54 Last Admin: 08/14/25 16:11 Dose: 6.75 mls/min Documented By: KAREN Discharge Plan Visit Data Chief Complaint: Referred by Doctor Stated Complaint: REF BY DOC, ABSCESS ON R ABD ED Provider: Carleen Nassar Discharge Problem: Cellulitis Patient Disposition: Admitted As Inpatient Condition: Fair Forms Stand Alone Forms: My [facility] [email or web address] Prescriptions Prescriptions: No Action (DME) Dexcom G7 Social Worker Masters Misc See Rx Instructions .Route Qty: 1 1RF Rx Instructions: test 4-5 x a day (DME) Dexcom G7 Sensor Device See Rx Instructions .Route Qty: 3 5RF Rx Instructions: change sensor every 10 days insulin aspart U-100 [Novolog FlexPen U-100 Insulin] 100 unit/mL (3 mL) insulin pen See Rx Instructions subcut TID Qty: 15 6RF Hold Instructions: not using Rx Instructions: 5-10 u per sliding scale subcutaneously three times a day; with meals 3 x a day losartan-hydrochlorothiazide 50-12.5 mg tablet 1 tab PO DAILY Qty: 30 2RF clopidogrel 75 mg tablet 75 mg PO QAM 30 Days Qty: 30 11RF Humulin 70/30 U-100 Insulin 100 unit/mL (70-30) suspension 20 unit subcut BID Qty: 10 4RF Rx Instructions: pt has no insurance paying out of pocket metoprolol succinate 100 mg tablet extended release 24 hr 100 mg PO DAILY Qty: 30 5RF (DME) insulin syringe-needle U-100 0.3 mL 31 gauge x 5/16" syringe See Rx Instructions .Route Qty: 100 3RF Rx Instructions: USE WITH INSULIN TWICE DAILY sulfamethoxazole-trimethoprim [Bactrim DS] 800-160 mg tablet 1 tab PO BID Qty: 20 0RF albuterol sulfate 90 mcg/actuation HFA aerosol inhaler 2 puff inhalation QID PRN (Reason: shortness of breath or wheezing) Qty: 8.5 0RF acetaminophen [Tylenol Extra Strength] 500 mg Tablet 1,000 mg PO Q6H PRN (Reason: Fever Or Pain) aspirin 81 mg Tablet,Delayed Release (Dr/Ec) 81 mg PO QAM 30 Days Qty: 30 1RF (DME) pen needle, diabetic 32 gauge x 5/32" needle See Rx Instructions .Route Qty: 100 1RF Rx Instructions: Use twice a day (DME) OneTouch Verio test strips Strip See Rx Instructions .Route Qty: 100 1RF Rx Instructions: Check 3 times a day (DME) lancets [OneTouch Delica Plus Lancet] 33 gauge misc See Rx Instructions .Route Qty: 100 1RF Rx Instructions: Check 3 times a day nystatin 100,000 unit/gram powder 1 applic topical BID PRN (Reason: Other) insulin glargine [Lantus Solostar U-100 Insulin] 100 unit/mL (3 mL) insulin pen 0 unit subcut QPM Hold Instructions: not using Referrals Referrals: Denia Reid CRNP [Primary Care Provider] - Discharge Problem: Cellulitis Qualifiers: Site of cellulitis: trunk Site of cellulitis of trunk: abdominal wall Qualified Code(s): L03.311 - Cellulitis of abdominal wall
[2025-08-14] MEDS: DAPTOmycin 675 MG in SYRINGE 0 ML IV ONE (16:11)
--- NOTE | 2025-08-14 18:55 | History & Physical Report ---
Date of Service August 14, 2025 Assessment & Plan (1) Abdominal wall abscess: (2) Diabetes mellitus treated with insulin and oral medication: (3) CAD (coronary artery disease): (4) Status post insertion of drug-eluting stent into left anterior descending (LAD) artery: (5) Hypertension: (6) Hyperlipidemia: Plan This is a 60 year old female with a PMH of DM2, CAD s/p stenting, HTN, HLD - recent ER visit with an abdominal wall abscess Abdominal Wall Abscess Cellulitis - cont Rocephin, daptomycin, and Flagyl - surgery to see to decide on need for surgical or IR drainage DM2 - hold oral agents - sliding scale insulin ordered CAD - hx of stents - cont aspirin + Plavix HTN - cont metoprolol - hold Losartan/HCTZ History of Present Illness Chief Complaint: Abdominal Wall Abscess Primary Care Provider: ESTELA Granger This is a 60 year old female with a PMH of DM2, CAD s/p stenting, HTN, HLD - recent ER visit with an abdominal wall abscess; at that time was discharged with Bactrim. Has been on Bactrim since that discharge on 08/08; was seen by general surgery today in the office. The abscess does not appear to be improving, so the general surgery team told her to come to the ER for further eval. in the ER, patient was started on Rocephin, flagyl and Daptomycin. Allergies Allergy/AdvReac Type Severity Reaction Status Date / Time bee venom protein (honey bee) Allergy Severe Anaphylaxis Verified 08/14/25 11:36 latex Allergy rash, Verified 08/14/25 11:36 itch, skin irritation metformin AdvReac Vomiting Verified 08/14/25 11:36 Home Medications Medication Instructions Recorded Confirmed Type acetaminophen 500 mg tablet 1,000 mg PO Q6H PRN Fever Or Pain 05/10/23 08/14/25 History (Tylenol Extra Strength) aspirin 81 mg tablet,delayed 81 mg PO QAM 30 days #30 tabs 05/14/23 08/14/25 Rx release blood sugar diagnostic (OneTouch #100 ea 05/14/23 08/14/25 Rx Verio test strips) lancets 33 gauge (OneTouch Delica #100 ea 05/14/23 08/14/25 Rx Plus Lancet) pen needle, diabetic 32 gauge x #100 ea 05/14/23 08/14/25 Rx /32" blood-glucose,special agent fbi,cont #1 ea 08/04/23 08/14/25 Rx (Dexcom G7 Health Editor) insulin glargine 100 unit/mL (3 0 unit subcut QPM 07/24/24 08/14/25 History mL) subcutaneous pen (Lantus Solostar U-100 Insulin) nystatin 100,000 unit/gram topical 1 applic topical BID PRN Other 07/24/24 08/14/25 History powder albuterol sulfate 90 mcg/actuation 2 puff inhalation QID PRN 08/17/24 08/14/25 Rx aerosol inhaler shortness of breath or wheezing #8.5 grams blood-glucose sensor (Dexcom G7 #3 ea 03/14/25 08/14/25 Rx Sensor device) insulin aspart U-100 100 unit/mL See Rx Instructions subcut TID #15 03/14/25 08/14/25 Rx (3 mL) subcutaneous pen (Novolog mL FlexPen U-100 Insulin aspart) losartan 50 mg-hydrochlorothiazide 1 tab PO DAILY #30 tabs 03/26/25 08/14/25 Rx 12.5 mg tablet clopidogrel 75 mg tablet 75 mg PO QAM 30 days #30 tabs 08/01/25 08/14/25 Rx insulin human U-100 NPH-regulr 20 unit (0.2 mL) subcut BID #10 mL 08/13/25 08/14/25 Rx 70-30 mix 100 unit/mL subcutaneous susp (Humulin 70/30 U-100 Insulin) insulin syringe-needle U-100 0.3 #100 ea 08/13/25 08/14/25 Rx mL 31 gauge x 16" metoprolol succinate 100 mg 100 mg PO DAILY #30 tabs 08/13/25 08/14/25 Rx tablet,extended release 24 hr sulfamethoxazole 800 1 tab PO BID #20 tabs 08/13/25 08/14/25 Rx mg-trimethoprim 160 mg tablet (Bactrim DS) Past Med/Surg History Problem List (Updated 08/14/25 @ 17:50 by Carleen Nassar MD) Asthma Abdominal wall abscess Pseudohyponatremia (Acute) Acute hyperglycemia (Acute) Cellulitis (Acute) Peripheral edema Diabetes mellitus treated with insulin and oral medication Obesity CAD (coronary artery disease) PCI of mid LAD with HARRIETT 05/12/23 Ischemic cardiomyopathy compensated; improved Post-menopause bleeding Status post insertion of drug-eluting stent into left anterior descending (LAD) artery Hypertension Hyperlipidemia Medical History (Updated 08/14/25 @ 17:50 by Carleen Nassar MD) History of asthma History of recent hospitalization pt admitted [facility] 05/09/23-05/14/23: dx PNA, HF with reduced EF, ischemic CM, CAD (s/p stent placement), postmenopausal bleeding with uterine mass. Pt readmitted 05/29/23-05/30/23 for hypotension 2/2 medications and elevated troponin 2/2 demand ischemia Encounter for pre-operative examination Hypertension Hyperlipidemia Diabetes mellitus, type 2 IDDM; 05/29/23 Ha1c: 10.0% Surgical History (Updated 08/14/25 @ 11:53 by Xiomara Farley RN) History of dilatation and curettage x2 History of esophagogastroduodenoscopy (EGD) History of heart artery stent (2022) 05/12/23, [facility], "shortness of breath-went to ER-found to have had a heart attack 3-4 weeks earlier, also dx with pneumonia">x1 stent; f/u dr. herrera, s History of cardiac cath 05/12/23, [facility], "shortness of breath-went to ER-found to have had a heart attack 3-4 weeks earlier, also dx with pneumonia">x1 stent; f/u dr. herrera, s History of tonsillectomy (1983) age 19 Family History (Updated 08/14/25 @ 11:55 by Xiomara Farley, BLANCO) Grandmother (Paternal) Breast cancer Brother Myocardial infarction Heart disease Family/Other Heart disease Denies family history of Ovarian cancer Prostate cancer Colorectal cancer Social History (Updated 08/14/25 @ 11:54 by Xiomara Farley, BLANCO) Smoking Status: Former smoker Tobacco Type: Cigarettes Age Started Using Tobacco: 26; Age Quit Using Tobacco: 30; packs per day: 2; Second Hand Exposure: No; Do You Dip or Chew Tobacco: No; Hx Alcohol Use: No Hx Substance Use: No Preferred Language: [place] Communication Ability: Effective Mastic Sprayer Required: No Beliefs That Will Affect Care: None marital status: Life Partner Current Living Situation: Alone current occupational status: employed current occupation: [employer] How many Children do You have: 1 Feels Safe at Home: Yes Childhood Exposure to Second-Hand Smoke: Yes Diet: diabetic caffeine: Yes during the past year weight has: decreased > 10 lbs Dental Care, Regularly: Yes Physical Activity Frequency: Daily Seatbelt Use: always Sunscreen Use: Yes Assistive Devices: None Review of Systems Review of Systems: Constitutional: No Weight Change, No Fever, No Chills, No Night Sweats, No Fatigue, No Malaise ENT/Mouth: No Hearing Changes, No Ear Pain, No Nasal Congestion, No Sinus Pain, No Hoarseness, No sore throat, No Rhinorrhea, No Swallowing Difficulty Eyes: No Eye Pain, No Swelling, No Redness, No Foreign Body, No Discharge, No Vision Changes Cardiovascular: No Chest Pain, No SOB, No PND, No Dyspnea on Exertion, No Orthopnea, No Claudication, No Edema, No Palpitations Respiratory: No Cough, No Sputum, No Wheezing, No Smoke Exposure, No Dyspnea Gastrointestinal: No Nausea, No Vomiting, No Diarrhea, No Constipation, No Pain, No Heartburn, No Anorexia, No Dysphagia, No Hematochezia, No Melena, No Flatulence, No Jaundice Genitourinary: No Dysmenorrhea, No DUB, No Dyspareunia, No Dysuria, No Urinary Frequency, No Hematuria, No Urinary Incontinence, No Urgency, No Flank Pain, No Urinary Flow Changes, No Hesitancy Musculoskeletal: No Arthralgias, No Myalgias, No Joint Swelling, No Joint Stiffness, No Back Pain, No Neck Pain, No Injury History Skin: No Skin Lesions, No Pruritis, No Hair Changes, No Breast/Skin Changes, No Nipple Discharge Neuro: No Weakness, No Numbness, No Paresthesias, No Loss of Consciousness, No Syncope, No Dizziness, No Headache, No Coordination Changes, No Recent Falls Psych: No Anxiety/Panic, No Depression, No Insomnia, No Personality Changes, No Delusions, No Rumination, No SI/HI/AH/VH, No Social Issues, No Memory Changes, No Violence/Abuse Hx., No Eating Concerns Heme/Lymph: No Bruising, No Bleeding, No Transfusions History, No Lymphadenopathy Endocrine: No Polyuria, No Polydipsia, No Temperature Intolerance Physical Exam Physical Exam: VITALS: Reviewed. WEIGHT/BMI reviewed. GEN: Healthy appearing, well-developed, NAD. PSYCH: Good Judgment. AOx3. Normal memory, mood, and affect. HEENT -Head: NC/AT; -Eyes: PERRL, EOMI. No discharge or redn ess; -Ears: External ears are normal. Normal TMs. -Nose: Normal nares. -Mouth and throat: MMM. Normal gums, muc arlene, palate,. Good dentition. NECK: Supple, with no masses. CV: RRR, no m/r/g. LUNGS: CTAB, no w/r/c. ABD: +swelling, +tenderness, +erythema : N/A SKIN: Warm, well perfused. No skin rashes or abnormal lesions. MSK: No deformities, Normal gait. EXT: No clubbing, cyanosis, or edema. NEURO: Ambulating with no limitations. Normal muscle strength and tone. No focal deficits. Results & Data Results & Data Vital Signs (Past 12 Hours) Vital Signs Temp Pulse Pulse Resp BP BP Pulse Ox 08/14/25 18:00 70 22 95 08/14/25 18:00 08/14/25 18:00 08/14/25 18:00 08/14/25 18:00 08/14/25 18:00 08/14/25 17:30 71 17 94 08/14/25 17:30 107/56 L 08/14/25 17:30 107/56 L 08/14/25 17:30 107/56 L 08/14/25 17:30 107/56 L 08/14/25 17:30 107/56 L 08/14/25 17:10 75 08/14/25 17:00 08/14/25 17:00 08/14/25 17:00 08/14/25 17:00 08/14/25 17:00 08/14/25 17:00 71 18 95 08/14/25 16:30 08/14/25 16:30 08/14/25 16:30 08/14/25 16:30 08/14/25 16:30 100/68 11/05/25 16:30 69 18 94 08/14/25 16:00 100/61 08/14/25 16:00 100/61 08/14/25 16:00 100/61 08/14/25 16:00 100/61 08/14/25 16:00 100/61 08/14/25 16:00 71 20 96 08/14/25 16:00 69 13 100/61 97 08/14/25 15:30 68 16 96 08/14/25 15:30 128/71 08/14/25 15:30 128/71 08/14/25 15:30 128/71 08/14/25 15:30 128/71 08/14/25 15:30 128/71 08/14/25 15:00 99/59 L 08/14/25 15:00 99/59 L 08/14/25 15:00 99/59 L 08/14/25 15:00 99/59 L 08/14/25 15:00 99/59 L 08/14/25 15:00 99/59 L 08/14/25 15:00 99/59 L 08/14/25 15:00 99/59 L 08/14/25 15:00 99/59 L 08/14/25 15:00 68 16 91 08/14/25 14:30 68 16 92 08/14/25 14:30 98/50 L 08/14/25 14:30 98/50 L 08/14/25 14:30 98/50 L 08/14/25 14:30 98/50 L 08/14/25 14:30 98/50 L 08/14/25 14:16 71 16 103/58 L 95 08/14/25 14:15 69 22 96 08/14/25 14:15 103/58 L 08/14/25 14:15 103/58 L 08/14/25 14:15 103/58 L 08/14/25 14:15 103/58 L 08/14/25 14:15 103/58 L 08/14/25 14:00 72 17 94 08/14/25 13:30 70 21 93 08/14/25 13:00 72 16 96 08/14/25 13:00 96/61 L 08/14/25 13:00 96/61 L 08/14/25 13:00 96/61 L 08/14/25 13:00 96/61 L 08/14/25 13:00 96/61 L 08/14/25 12:51 74 21 94 08/14/25 12:50 74 08/14/25 12:49 37.1 C 72 12 105/58 L 94 08/14/25 12:47 105/58 L 08/14/25 12:47 105/58 L 08/14/25 12:47 105/58 L 08/14/25 12:29 36.7 C 75 20 109/66 94 O2 Del Method 08/14/25 18:00 08/14/25 18:00 08/14/25 18:00 08/14/25 18:00 08/14/25 18:00 08/14/25 18:00 08/14/25 17:30 08/14/25 17:30 08/14/25 17:30 08/14/25 17:30 08/14/25 17:30 08/14/25 17:30 08/14/25 17:10 08/14/25 17:00 08/14/25 17:00 08/14/25 17:00 08/14/25 17:00 08/14/25 17:00 08/14/25 17:00 08/14/25 16:30 08/14/25 16:30 08/14/25 16:30 08/14/25 16:30 08/14/25 16:30 08/14/25 16:30 08/14/25 16:00 08/14/25 16:00 08/14/25 16:00 08/14/25 16:00 08/14/25 16:00 08/14/25 16:00 08/14/25 16:00 Room Air 08/14/25 15:30 08/14/25 15:30 08/14/25 15:30 08/14/25 15:30 08/14/25 15:30 08/14/25 15:30 08/14/25 15:00 08/14/25 15:00 08/14/25 15:00 08/14/25 15:00 08/14/25 15:00 08/14/25 15:00 08/14/25 15:00 08/14/25 15:00 08/14/25 15:00 08/14/25 15:00 08/14/25 14:30 08/14/25 14:30 08/14/25 14:30 08/14/25 14:30 08/14/25 14:30 08/14/25 14:30 08/14/25 14:16 Room Air 08/14/25 14:15 08/14/25 14:15 08/14/25 14:15 08/14/25 14:15 08/14/25 14:15 08/14/25 14:15 08/14/25 14:00 08/14/25 13:30 08/14/25 13:00 08/14/25 13:00 08/14/25 13:00 08/14/25 13:00 08/14/25 13:00 08/14/25 13:00 08/14/25 12:51 08/14/25 12:50 08/14/25 12:49 Room Air 08/14/25 12:47 08/14/25 12:47 08/14/25 12:47 08/14/25 12:29 Room Air Code Status & VTE Plan VTE Prophylaxis Plan VTE Prophylaxis will be ordered: Yes PG Care Time/CCT Total # of Minutes Spent Total Time Spent with Patient: Total time spent is greater than 50% in coordination of care (as documented) at patient's floor/unit and/or counseling patient: Coding Level of Care Code 41265 INT INP/OBS CARE 3/75MIN Diagnoses Abdominal wall abscess L02.211 Diabetes mellitus treated with insulin and oral medication E11.9; Z79.4; Z79.84 Coronary artery disease involving [place] heart without angina pectoris, unspecified vessel or lesion type I25.10 Coronary Disease-Associated Artery/Lesion type: unspecified vessel or lesion type [place] vs. transplanted heart: [place] heart Associated angina: without angina Status post insertion of drug-eluting stent into left anterior descending (LAD) artery Z95.5 Primary hypertension I10 Hypertension type: primary hypertension Pure hypercholesterolemia E78.00 Hyperlipidemia type: pure hypercholesterolemia (3) CAD (coronary artery disease) Coronary Disease-Associated Artery/Lesion type: unspecified vessel or lesion type [place] vs. transplanted heart: [place] heart Associated angina: without angina Qualified Code(s): I25.10 - Atherosclerotic heart disease of [place] coronary artery without angina pectoris (5) Hypertension Hypertension type: primary hypertension Qualified Code(s): I10 - Essential (primary) hypertension (6) Hyperlipidemia Hyperlipidemia type: pure hypercholesterolemia Qualified Code(s): E78.00 - Pure hypercholesterolemia, unspecified
[2025-08-14] MEDS ORDERED: ACETAMINOPHEN 325 MG TAB PO PRN (20:39)
[2025-08-14] MEDS ORDERED: PHARMACY GLYCEMIC MGMT CONSULT PRN (20:39)
[2025-08-14] MEDS ORDERED: GLUCAGON FOR INJ 1 MG VIAL SQ PRN (20:39)
[2025-08-14] MEDS ORDERED: ALBUTEROL HFA 8 GM INHALER INH PRN (20:39)
[2025-08-14] MEDS ORDERED: GLUCOSE 40% GEL 15 GM TUBE PO PRN (20:39)
[2025-08-14] MEDS ORDERED: DEXTROSE 50% 50 ML SYRINGE IV PRN (20:39)
[2025-08-14] MEDS ORDERED: GLUCOSE 10 TAB/TUBE PO PRN (20:39)
[2025-08-14] MEDS: LANTUS PER UNIT CHARGE SC SCH (21:21)
[2025-08-14] MEDS: INSULIN HUMAN REGULAR PER UNIT 10 UNITS in SYRINGE 9.9 ML IV ONE (21:22)
[2025-08-14] MEDS: INSULIN ASPART PER UNIT CHARGE SC SCH (21:22)
[2025-08-14] MEDS: metroNIDAZOLE 500 MG/100 ML BAG IV SCH (21:23)
--- NOTE | 2025-08-14 22:28 | Surgery Consultation ---
Date of Consultation August 14, 2025 Assessment & Plan (1) Abdominal wall abscess: Patient has been admitted on hospital service. Surgical recommendations are as follows: Patient has been started on antibiotics in the form of daptomycin, Flagyl, and Rocephin that should continue. A wound culture has been obtained and we will follow-up for the results of this, tailor antibiotics as indicated The patient's diabetes and appear to be optimally controlled and this will hopefully help with wound healing but will be deferred to the primary service We will check a repeat CT scan abdomen pelvis to see if there is any definitive abscess that required incision and drainage Will empirically make the patient n.p.o. in case incision and drainage in the operating room is required tomorrow At the time of my interview the patient was noted be nontoxic-appearingthat she is normotensive tachycardia, fever, or leukocytosis. Additional recommendations be forthcoming based on her clinical course as it unfolds Supervising Physician Co-Signing Physician Notes Patient discussed with Octavio Brewer overnight, labs and imaging reviewed, agree with above. Abdominal wall abscess, plan for incision and drainage in the operating room on 15 August 2025. Please see today's progress notes for further details. History of Present Illness Reason for Consultation: Abdominal wall abscess Attending Physician: Yolande Monteiro, DO History of Present Illness This is a 60-year-old patient who was referred to the emergency department by Dr. Valerio Barker about the issue of general surgery. Patient was previously in the emergency department on 08/03/2025 secondary to concern for abdominal wall abscess. During this emergency department visit the patient did undergo a CT scan of the abdomen pelvis that showed patient had subcutaneous edema near the right groin secondary to cellulitis but no definitive abscess was noted. The patient was discharged home on oral antibiotics in the form of Keflex and doxycycline and the patient noted that she completed the course of antibiotics as prescribed. She was seen by her primary care team on 08/12/2025 where she was still noted to have purulent drainage from the area of cellulitis in question she was started on Bactrim twice daily and she was ultimately referred to Dr. Barker about any physician with general surgery. Today in the office Dr. Barker noted the patient still had what appeared to be a pinhole like area draining purulent material and she was therefore referred to the emergency department as he felt intravenous antibiotics and further care was needed. She did present to the emergency department where she underwent labs including a CBC with a white blood cell count and hemoglobin as well as a platelet count were normal. Her hematocrit was slightly low at 35.9. Chemistry profile showed sodium is 129 with a potassium of 4.0. BUN and creatinine were both normal. The patient says that she has not been having any nausea or vomiting. She denies any fevers, shakes, or chills. She notes that the area that is draining is somewhat sore but not overly painful. At the time of my interview she was resting comfortably in bed and she was in no distress. Allergies Allergy/AdvReac Type Severity Reaction Status Date / Time bee venom protein (honey bee) Allergy Severe Anaphylaxis Verified 08/14/25 11:36 latex Allergy rash, Verified 08/14/25 11:36 itch, skin irritation metformin AdvReac Vomiting Verified 08/14/25 11:36 Home Medications Medication Instructions Recorded Confirmed Type acetaminophen 500 mg tablet 1,000 mg PO Q6H PRN Fever Or Pain 05/10/23 08/14/25 History (Tylenol Extra Strength) aspirin 81 mg tablet,delayed 81 mg PO QAM 30 days #30 tabs 05/14/23 08/14/25 Rx release blood sugar diagnostic (OneTouch #100 ea 05/14/23 08/14/25 Rx Verio test strips) lancets 33 gauge (OneTouch Delica #100 ea 05/14/23 08/14/25 Rx Plus Lancet) pen needle, diabetic 32 gauge x #100 ea 05/14/23 08/14/25 Rx 5/32" blood-glucose,social services director,cont #1 ea 08/04/23 08/14/25 Rx (Dexcom G7 French Edge Operator) insulin glargine 100 unit/mL (3 0 unit subcut QPM 07/24/24 08/14/25 History mL) subcutaneous pen (Lantus Solostar U-100 Insulin) nystatin 100,000 unit/gram topical 1 applic topical BID PRN Other 07/24/24 08/14/25 History powder albuterol sulfate 90 mcg/actuation 2 puff inhalation QID PRN 08/17/24 08/14/25 Rx aerosol inhaler shortness of breath or wheezing #8.5 grams blood-glucose sensor (Dexcom G7 #3 ea 03/14/25 08/14/25 Rx Sensor device) insulin aspart U-100 100 unit/mL See Rx Instructions subcut TID #15 03/14/25 08/14/25 Rx (3 mL) subcutaneous pen (Novolog mL FlexPen U-100 Insulin aspart) losartan 50 mg-hydrochlorothiazide 1 tab PO DAILY #30 tabs 03/26/25 08/14/25 Rx 12.5 mg tablet clopidogrel 75 mg tablet 75 mg PO QAM 30 days #30 tabs 08/01/25 08/14/25 Rx insulin human U-100 NPH-regulr 20 unit (0.2 mL) subcut BID #10 mL 08/13/25 08/14/25 Rx 70-30 mix 100 unit/mL subcutaneous susp (Humulin 70/30 U-100 Insulin) insulin syringe-needle U-100 0.3 #100 ea 08/13/25 08/14/25 Rx mL 31 gauge x 5/16" metoprolol succinate 100 mg 100 mg PO DAILY #30 tabs 08/13/25 08/14/25 Rx tablet,extended release 24 hr sulfamethoxazole 800 1 tab PO BID #20 tabs 08/13/25 08/14/25 Rx mg-trimethoprim 160 mg tablet (Bactrim DS) Patient History Medical History History of asthma History of recent hospitalization pt admitted [facility] 05/09/23-05/14/23: dx PNA, HF with reduced EF, ischemic CM, CAD (s/p stent placement), postmenopausal bleeding with uterine mass. Pt readmitted 05/29/23-05/30/23 for hypotension 2/2 medications and elevated troponin 2/2 demand ischemia Encounter for pre-operative examination Hypertension Hyperlipidemia Diabetes mellitus, type 2 IDDM; 05/29/23 Ha1c: 10.0% Surgical History History of dilatation and curettage x2 History of esophagogastroduodenoscopy (EGD) History of heart artery stent (2022) 05/12/23, [facility], "shortness of breath-went to ER-found to have had a heart attack 3-4 weeks earlier, also dx with pneumonia">x1 stent; f/u shari tinoco History of cardiac cath 05/12/23, [facility], "shortness of breath-went to ER-found to have had a heart attack 3-4 weeks earlier, also dx with pneumonia">x1 stent; f/u shari tinoco History of tonsillectomy (1983) age 19 Family History Grandmother (Paternal) Breast cancer Brother Myocardial infarction Heart disease Family/Other Heart disease Denies family history of Ovarian cancer Prostate cancer Colorectal cancer Social History Smoking Status: Unknown if ever smoked Tobacco Type: Cigarettes Age Started Using Tobacco: 26; Age Quit Using Tobacco: 30; packs per day: 2; Second Hand Exposure: No; Do You Dip or Chew Tobacco: No; Hx Alcohol Use: No Hx Substance Use: No Preferred Language: Pashto Communication Ability: Effective Rolling Chair Pusher Required: No Beliefs That Will Affect Care: None marital status: Life Partner Current Living Situation: Significant Other current occupational status: employed current occupation: [employer] How many Children do You have: 1 Feels Safe at Home: Yes Childhood Exposure to Second-Hand Smoke: Yes Diet: diabetic caffeine: Yes during the past year weight has: decreased > 10 lbs Dental Care, Regularly: Yes Physical Activity Frequency: Daily Seatbelt Use: always Sunscreen Use: Yes Assistive Devices: None Review of Systems Review of Systems: All systems reviewed & are unremarkable except as noted in HPI & below Physical Exam Constitutional: WD/WN, vitals as above Eyes: no conjunctival abnormality ENMT: Ears: no hearing impairment and no external ear abnormality Neck: trachea midline Respiratory: normal respiratory effort; no respiratory distress and no labored breathing Cardiovascular: Rate/Rhythm: regular rate and regular rhythm Gastrointestinal (Abdomen): In the patient's lower abdomen/suprapubic region just to the right of midline she had an area of erythema and she had a pinhole sized area that was draining purulent material. There is no crepitus in the soft tissue. Musculoskeletal: No calf tenderness Skin: + rash See above description Psychiatric: A+Ox3, euthymic affect Results & Data Vital Signs (Past 12 Hours) Vital Signs Temp Pulse Pulse Resp BP BP Pulse Ox 08/14/25 20:45 08/14/25 20:45 36.6 C 80 113/72 92 08/14/25 20:13 66 18 128/95 97 08/14/25 19:36 74 16 121/67 95 08/14/25 18:00 70 22 95 08/14/25 18:00 127/75 08/14/25 18:00 127/75 08/14/25 18:00 127/75 08/14/25 18:00 127/75 08/14/25 18:00 127/75 08/14/25 17:30 71 17 94 08/14/25 17:30 107/56 L 08/14/25 17:30 107/56 L 08/14/25 17:30 107/56 L 08/14/25 17:30 107/56 L 08/14/25 17:30 107/56 L 08/14/25 17:10 75 08/14/25 17:00 117/64 08/14/25 17:00 117/64 08/14/25 17:00 117/64 08/14/25 17:00 117/64 08/14/25 17:00 117/64 08/14/25 17:00 71 18 95 08/14/25 16:30 100/68 08/14/25 16:30 100/08/14/25 16:30 100/08/14/25 16:30 100/68 08/14/25 16:30 100/68 08/14/25 16:30 69 18 94 08/14/25 16:00 100/08/14/25 16:00 100/08/14/25 16:00 100/08/14/25 16:00 100/08/14/25 16:00 100/08/14/25 16:00 71 20 96 08/14/25 16:00 69 13 100/61 97 08/14/25 15:30 68 16 96 08/14/25 15:30 128/71 08/14/25 15:30 128/71 08/14/25 15:30 128/71 08/14/25 15:30 128/71 08/14/25 15:30 128/71 08/14/25 15:00 99/59 L 08/14/25 15:00 99/59 L 08/14/25 15:00 99/59 L 08/14/25 15:00 99/59 L 08/14/25 15:00 99/59 L 08/14/25 15:00 99/59 L 08/14/25 15:00 99/59 L 08/14/25 15:00 99/59 L 08/14/25 15:00 99/59 L 08/14/25 15:00 68 16 91 08/14/25 14:30 68 16 92 08/14/25 14:30 98/50 L 08/14/25 14:30 98/50 L 08/14/25 14:30 98/50 L 08/14/25 14:30 98/50 L 08/14/25 14:30 98/50 L 08/14/25 14:16 71 16 103/58 L 95 08/14/25 14:15 69 22 96 08/14/25 14:15 103/58 L 08/14/25 14:15 103/58 L 08/14/25 14:15 103/58 L 08/14/25 14:15 103/58 L 08/14/25 14:15 103/58 L 08/14/25 14:00 72 17 94 08/14/25 13:30 70 21 93 08/14/25 13:00 72 16 96 08/14/25 13:00 96/61 L 08/14/25 13:00 96/61 L 08/14/25 13:00 96/61 L 08/14/25 13:00 96/61 L 08/14/25 13:00 96/61 L 08/14/25 12:51 74 21 94 08/14/25 12:50 74 08/14/25 12:49 37.1 C 72 12 105/58 L 94 08/14/25 12:47 105/58 L 08/14/25 12:47 105/58 L 08/14/25 12:47 105/58 L 08/14/25 12:29 36.7 C 75 20 109/66 94 O2 Del Method 08/14/25 20:45 Room Air 08/14/25 20:45 Room Air 08/14/25 20:13 08/14/25 19:36 08/14/25 18:00 08/14/25 18:00 08/14/25 18:00 08/14/25 18:00 08/14/25 18:00 08/14/25 18:00 08/14/25 17:30 08/14/25 17:30 08/14/25 17:30 08/14/25 17:30 08/14/25 17:30 08/14/25 17:30 08/14/25 17:10 08/14/25 17:00 08/14/25 17:00 08/14/25 17:00 08/14/25 17:00 08/14/25 17:00 08/14/25 17:00 08/14/25 16:30 08/14/25 16:30 08/14/25 16:30 08/14/25 16:30 08/14/25 16:30 08/14/25 16:30 08/14/25 16:00 08/14/25 16:00 08/14/25 16:00 08/14/25 16:00 08/14/25 16:00 08/14/25 16:00 08/14/25 16:00 Room Air 08/14/25 15:30 08/14/25 15:30 08/14/25 15:30 08/14/25 15:30 08/14/25 15:30 08/14/25 15:30 08/14/25 15:00 08/14/25 15:00 08/14/25 15:00 08/14/25 15:00 08/14/25 15:00 08/14/25 15:00 08/14/25 15:00 08/14/25 15:00 08/14/25 15:00 08/14/25 15:00 08/14/25 14:30 08/14/25 14:30 08/14/25 14:30 08/14/25 14:30 08/14/25 14:30 08/14/25 14:30 08/14/25 14:16 Room Air 08/14/25 14:15 08/14/25 14:15 08/14/25 14:15 08/14/25 14:15 08/14/25 14:15 08/14/25 14:15 08/14/25 14:00 08/14/25 13:30 08/14/25 13:00 08/14/25 13:00 08/14/25 13:00 08/14/25 13:00 08/14/25 13:00 08/14/25 13:00 08/14/25 12:51 08/14/25 12:50 08/14/25 12:49 Room Air 08/14/25 12:47 08/14/25 12:47 08/14/25 12:47 08/14/25 12:29 Room Air PG Care Time/CCT Total # of Minutes Spent Total Time Spent with Patient: Total time spent is greater than 50% in coordination of care (as documented) at patient's floor/unit and/or counseling patient: Coding Level of Care Code 37613 IN/OBS CONSULT LVL 5,80M Diagnoses Abdominal wall abscess L02.211
[2025-08-14] MEDS: OPTIRAY 320 100ml IV ONE (22:53)
[2025-08-15] MEDS: INSULIN ASPART PER UNIT CHARGE SC SCH ×2 (00:23→21:04)
--- NOTE | 2025-08-15 01:00 | CT Scan Report ---
Exam(s): CT ABDOMEN + PELVIS With Contrast IV Amt: 93 ML OPTIRAY 320 EXAM: CT Abdomen and Pelvis With Intravenous Contrast CLINICAL HISTORY: Reason for exam: abd wall abscess. TECHNIQUE: Axial computed tomography images of the abdomen and pelvis with intravenous contrast. CTDI is 28.14 mGy and DLP is 1288.75 mGy-cm. Automated exposure control was utilized for the study. A dose lowering technique was utilized adhering to the principles of ALARA. CONTRAST: Patient received 93 ML OPTIRAY 320 of IV contrast COMPARISON: 08/03/2025. FINDINGS: Lung bases: No consolidation. The heart contains coronary artery calcifications ABDOMEN: Liver: The liver is enlarged.. Gallbladder and bile ducts: There are gallstones within the gallbladder. . No ductal dilation. Pancreas: No mass. No ductal dilation. Spleen: No splenomegaly. Adrenals: No mass. Kidneys and ureters: No solid mass. No hydronephrosis. Stomach and bowel: There are retained foodstuffs within the stomach. There is air and stool noted in the colon. There are diverticula present on the colon. No significant inflammatory changes are seen There are some mildly distended loops of small bowel containing air and fluid. The overall bowel gas pattern may represent an ileus.. PELVIS: Appendix: The appendix is not visualized.. Bladder: No calculi are noted within the bladder.. Reproductive: The uterus is inhomogeneous.. ABDOMEN and PELVIS: Intraperitoneal space: No free air. No significant fluid collection. Bones/joints: There are degenerative changes in the spine and the hips.. Soft tissues: There is soft tissue edema and swelling noted of the right anterior pelvic wall. There is a 6.7 x 2.3 x 2.6 cm fluid collection.. Vasculature: No abdominal aortic aneurysm. Lymph nodes: No enlarged lymph nodes. IMPRESSION: There is soft tissue edema and swelling noted of the right anterior pelvic wall. There is a 6.7 x 2.3 x 2.6 cm fluid collection.. This may represent an abscess. Cholelithiasis. Hepatomegaly. Diverticulosis. Uterus is inhomogeneous and may be related to leiomyoma formation. The heart contains coronary artery calcifications Electronically signed by: Shakeel Valencia MD 08/15/25 00:58 AM
[2025-08-15] MEDS: INSULIN ASPART PER UNIT CHARGE SC ONE (03:08)
[2025-08-15 07:01] LABS: Hemoglobin A1C 15.0 % (4.5-5.6)
[2025-08-15] MEDS: LANTUS PER UNIT CHARGE SC SCH ×2 (09:21→21:05)
[2025-08-15] MEDS: METOPROLOL SUCC 50MG EXT REL TAB PO SCH (09:22)
[2025-08-15] MEDS: ASPIRIN 81 MG ECTAB PO SCH (09:23)
[2025-08-15] MEDS: CLOPIDOGREL BISULFATE 75 MG TAB PO SCH (09:23)
--- NOTE | 2025-08-15 10:56 | Progress Note ---
Date of Service August 15, 2025 Assessment & Plan (1) Abdominal wall abscess: (2) Diabetes mellitus treated with insulin and oral medication: (3) CAD (coronary artery disease): Coronary Disease-Associated Artery/Lesion type: unspecified vessel or lesion type [place] vs. transplanted heart: [place] heart Associated angina: without angina Qualified Code(s): I25.10 - Atherosclerotic heart disease of [place] coronary artery without angina pectoris (4) Status post insertion of drug-eluting stent into left anterior descending (LAD) artery: (5) Hypertension: Hypertension type: primary hypertension Qualified Code(s): I10 - Essential (primary) hypertension (6) Hyperlipidemia: Hyperlipidemia type: pure hypercholesterolemia Qualified Code(s): E78.00 - Pure hypercholesterolemia, unspecified Plan This is a 60 year old female with a PMH of DM2, CAD s/p stenting, HTN, HLD - recent ER visit with an abdominal wall abscess Abdominal Wall Abscess Cellulitis - cont Rocephin, daptomycin, and Flagyl - surgery to see to decide on need for surgical or IR drainage DM2 - hold oral agents - sliding scale insulin ordered CAD - hx of stents - cont aspirin + Plavix HTN - cont metoprolol - hold Losartan/HCTZ Admission and Anticipated Discharge Date Admission Date: August 14, 2025 Subjective Patient is doing fine; no significant pain has ongoing drainage of the abdominal wall Review of Systems Review of Systems: Constitutional: No Weight Change, No Fever, No Chills, No Night Sweats, No Fatigue, No Malaise ENT/Mouth: No Hearing Changes, No Ear Pain, No Nasal Congestion, No Sinus Pain, No Hoarseness, No sore throat, No Rhinorrhea, No Swallowing Difficulty Eyes: No Eye Pain, No Swelling, No Redness, No Foreign Body, No Discharge, No Vision Changes Cardiovascular: No Chest Pain, No SOB, No PND, No Dyspnea on Exertion, No Orthopnea, No Claudication, No Edema, No Palpitations Respiratory: No Cough, No Sputum, No Wheezing, No Smoke Exposure, No Dyspnea Gastrointestinal: No Nausea, No Vomiting, No Diarrhea, No Constipation, No Pain, No Heartburn, No Anorexia, No Dysphagia, No Hematochezia, No Melena, No Flatulence, No Jaundice Genitourinary: No Dysmenorrhea, No DUB, No Dyspareunia, No Dysuria, No Urinary Frequency, No Hematuria, No Urinary Incontinence, No Urgency, No Flank Pain, No Urinary Flow Changes, No Hesitancy Musculoskeletal: No Arthralgias, No Myalgias, No Joint Swelling, No Joint Stiffness, No Back Pain, No Neck Pain, No Injury History Skin: No Skin Lesions, No Pruritis, No Hair Changes, No Breast/Skin Changes, No Nipple Discharge Neuro: No Weakness, No Numbness, No Paresthesias, No Loss of Consciousness, No Syncope, No Dizziness, No Headache, No Coordination Changes, No Recent Falls Psych: No Anxiety/Panic, No Depression, No Insomnia, No Personality Changes, No Delusions, No Rumination, No SI/HI/AH/VH, No Social Issues, No Memory Changes, No Violence/Abuse Hx., No Eating Concerns Heme/Lymph: No Bruising, No Bleeding, No Transfusions History, No Lymphadenopathy Endocrine: No Polyuria, No Polydipsia, No Temperature Intolerance Physical Exam Physical Exam: VITALS: Reviewed. WEIGHT/BMI reviewed. GEN: Healthy appearing, well-developed, NAD. PSYCH: Good Judgment. AOx3. Normal memory, mood, and affect. HEENT -Head: NC/AT; -Eyes: PERRL, EOMI. No discharge or redn ess; -Ears: External ears are normal. Normal TMs. -Nose: Normal nares. -Mouth and throat: MMM. Normal gums, muc arlene, palate,. Good dentition. NECK: Supple, with no masses. CV: RRR, no m/r/g. LUNGS: CTAB, no w/r/c. ABD: +swelling, +tenderness, +erythema : N/A SKIN: Warm, well perfused. No skin rashes or abnormal lesions. MSK: No deformities, Normal gait. EXT: No clubbing, cyanosis, or edema. NEURO: Ambulating with no limitations. Normal muscle strength and tone. No focal deficits. Results & Data Vital Signs (Past 12 Hours) Vital Signs Temp Pulse Resp BP Pulse Ox O2 Del Method 08/15/25 07:38 36.6 C 69 16 94/59 L 96 Room Air PG Care Time/CCT Total # of Minutes Spent Total Time Spent with Patient: Total time spent is greater than 50% in coordination of care (as documented) at patient's floor/unit and/or counseling patient: Coding Level of Care Code 62040 SUB INP/OBS CARE 2/35MIN Diagnoses Abdominal wall abscess L02.211 Diabetes mellitus treated with insulin and oral medication E11.9; Z79.4; Z79.84 Coronary artery disease involving [place] heart without angina pectoris, unspecified vessel or lesion type I25.10 Coronary Disease-Associated Artery/Lesion type: unspecified vessel or lesion type [place] vs. transplanted heart: [place] heart Associated angina: without angina Status post insertion of drug-eluting stent into left anterior descending (LAD) artery Z95.5 Primary hypertension I10 Hypertension type: primary hypertension Pure hypercholesterolemia E78.00 Hyperlipidemia type: pure hypercholesterolemia
--- NOTE | 2025-08-15 11:07 | Surgery Progress Note ---
Date of Service August 15, 2025 Assessment & Plan (1) Abdominal wall abscess: Plan: Abdominal wall abscess Plan for incision and drainage abdominal wall abscess Risk discussed to include but not limited to bleeding, infection, damage surrounding structures, prolonged wound healing, need for future more extensive surgery, and the risk of anesthesia Likely will need wound care consult POD #1 Continue antibiotics (2) Diabetes mellitus, type 2: (3) Hypertension: (4) Hyperlipidemia: (5) CAD (coronary artery disease): Admission and Anticipated Discharge Date Admission Date: August 14, 2025 Subjective Admitted with abdominal wall abscess. Continuous drainage, some discomfort, afebrile. Physical Exam Constitutional: WD/WN, vitals as above + obese Respiratory: normal respiratory effort, lungs clear to auscultation Cardiovascular: RRR, no murmur, no edema Gastrointestinal (Abdomen): normal bowel sounds, soft, nontender, no hepatosplenomegaly Skin: no rashes, warm and dry + fluctulance Right lower quadrant abscess with draining purulent fluid, minimal cellulitis Results & Data Vital Signs (Past 12 Hours) Vital Signs Temp Pulse Resp BP Pulse Ox O2 Del Method 08/15/25 07:38 36.6 C 69 16 94/59 L 96 Room Air Laboratory Results Laboratory Results - last 24 hr 08/14/25 08/14/25 08/15/25 13:00 20:35 00:13 WBC 8.04 RBC 4.39 Hgb 12.0 Hct 35.9 L MCV 81.8 MCH 27.3 MCHC 33.4 RDW Std Deviation 37.4 RDW Coeff of Viktor 12.6 Plt Count 368 MPV 9.5 Immature Gran % (Auto) 0.5 Neut % (Auto) 64.9 Lymph % (Auto) 25.4 [place] % (Auto) 6.8 Eos % (Auto) 2.0 Baso % (Auto) 0.4 Neut # (Auto) 5.22 Lymph # (Auto) 2.04 [place] # (Auto) 0.55 Eos # (Auto) 0.16 Baso # (Auto) 0.03 Immature Gran # (Auto) 0.04 Sodium 129 L Potassium 4.0 Chloride 92 L Carbon Dioxide 27 Anion Gap 10 BUN 18 Creatinine 0.98 Est Cr Clr Drug Dosing 70.5 eGFR 66.08 BUN/Creatinine Ratio 18.4 Glucose 449 H* POC Glucose 468 H* 93 Estimat Average Glucose 384 Hemoglobin A1c 15.0 H Calcium 8.9 Total Bilirubin 0.4 AST 12 L ALT 7 Alkaline Phosphatase 108 H Total Protein 7.4 Albumin 3.6 Globulin 3.8 Albumin/Globulin Ratio 0.9 08/15/25 08/15/25 03:00 06:06 WBC RBC Hgb Hct MCV MCH MCHC RDW Std Deviation RDW Coeff of Viktor Plt Count MPV Immature Gran % (Auto) Neut % (Auto) Lymph % (Auto) [place] % (Auto) Eos % (Auto) Baso % (Auto) Neut # (Auto) Lymph # (Auto) [place] # (Auto) Eos # (Auto) Baso # (Auto) Immature Gran # (Auto) Sodium Potassium Chloride Carbon Dioxide Anion Gap BUN Creatinine Est Cr Clr Drug Dosing eGFR BUN/Creatinine Ratio Glucose POC Glucose 180 H 215 H Estimat Average Glucose Hemoglobin A1c Calcium Total Bilirubin AST ALT Alkaline Phosphatase Total Protein Albumin Globulin Albumin/Globulin Ratio Diagnostic Findings CT personally reviewed and agree with the assessment of a 6 cm abdominal wall abscess, Abdomen/Pelvis CT 08/14/25 21:20 Exam(s): CT ABDOMEN + PELVIS With Contrast IV Amt: 93 ML OPTIRAY 320 EXAM: CT Abdomen and Pelvis With Intravenous Contrast CLINICAL HISTORY: Reason for exam: abd wall abscess. TECHNIQUE: Axial computed tomography images of the abdomen and pelvis with intravenous contrast. CTDI is 28.14 mGy and DLP is 1288.75 mGy-cm. Automated exposure control was utilized for the study. A dose lowering technique was utilized adhering to the principles of ALARA. CONTRAST: Patient received 93 ML OPTIRAY 320 of IV contrast COMPARISON: 08/03/2025. FINDINGS: Lung bases: No consolidation. The heart contains coronary artery calcifications ABDOMEN: Liver: The liver is enlarged.. Gallbladder and bile ducts: There are gallstones within the gallbladder. . No ductal dilation. Pancreas: No mass. No ductal dilation. Spleen: No splenomegaly. Adrenals: No mass. Kidneys and ureters: No solid mass. No hydronephrosis. Stomach and bowel: There are retained foodstuffs within the stomach. There is air and stool noted in the colon. There are diverticula present on the colon. No significant inflammatory changes are seen There are some mildly distended loops of small bowel containing air and fluid. The overall bowel gas pattern may represent an ileus.. PELVIS: Appendix: The appendix is not visualized.. Bladder: No calculi are noted within the bladder.. Reproductive: The uterus is inhomogeneous.. ABDOMEN and PELVIS: Intraperitoneal space: No free air. No significant fluid collection. Bones/joints: There are degenerative changes in the spine and the hips.. Soft tissues: There is soft tissue edema and swelling noted of the right anterior pelvic wall. There is a 6.7 x 2.3 x 2.6 cm fluid collection.. Vasculature: No abdominal aortic aneurysm. Lymph nodes: No enlarged lymph nodes. IMPRESSION: There is soft tissue edema and swelling noted of the right anterior pelvic wall. There is a 6.7 x 2.3 x 2.6 cm fluid collection.. This may represent an abscess. Cholelithiasis. Hepatomegaly. Diverticulosis. Uterus is inhomogeneous and may be related to leiomyoma formation. The heart contains coronary artery calcifications Electronically signed by: Shakeel Valencia MD 08/15/25 00:58 AM PG Care Time/CCT Total # of Minutes Spent Total Time Spent with Patient: Total time spent is greater than 50% in coordination of care (as documented) at patient's floor/unit and/or counseling patient: Coding Level of Care Code 24753 SUB INP/OBS CARE 2/35MIN Diagnoses Abdominal wall abscess L02.211 Diabetes mellitus, type 2 E11.9 Primary hypertension I10 Hypertension type: primary hypertension Pure hypercholesterolemia E78.00 Hyperlipidemia type: pure hypercholesterolemia Coronary artery disease involving [place] heart without angina pectoris, unspecified vessel or lesion type I25.10 Coronary Disease-Associated Artery/Lesion type: unspecified vessel or lesion type [place] vs. transplanted heart: [place] heart Associated angina: without angina (3) Hypertension Hypertension type: primary hypertension Qualified Code(s): I10 - Essential (primary) hypertension (4) Hyperlipidemia Hyperlipidemia type: pure hypercholesterolemia Qualified Code(s): E78.00 - Pure hypercholesterolemia, unspecified (5) CAD (coronary artery disease) Coronary Disease-Associated Artery/Lesion type: unspecified vessel or lesion type [place] vs. transplanted heart: [place] heart Associated angina: without angina Qualified Code(s): I25.10 - Atherosclerotic heart disease of [place] coronary artery without angina pectoris
--- NOTE | 2025-08-15 11:34 | Anesthesiology Consultation ---
Date of Service August 15, 2025 Assessment & Plan Chart Review Chart Review: Pending: Refer to Additional Notes / Consult section (awaiting ekg and Na. if patient needs to proceed urgently, she would be ok to go) and Patient NOT seen in Pre Admission Testing History Surgery Operation Date: 08/15/25 10:45 Proposed Procedures p Incision and Drainage Abdominal Wall Abscess - Sidney David, DO, FACS Height/Weight Height: 5 ft 5 in Weight: 95 kg Allergies Allergy/AdvReac Type Severity Reaction Status Date / Time bee venom protein (honey bee) Allergy Severe Anaphylaxis Verified 08/14/25 11:36 latex Allergy rash, Verified 08/14/25 11:36 itch, skin irritation metformin AdvReac Vomiting Verified 08/14/25 11:36 Medications Home Medications Medication Instructions Recorded Confirmed Last Taken acetaminophen 500 mg tablet 1,000 mg PO Q6H PRN Fever Or Pain 05/10/23 08/14/25 06/23/23 20:00 (Tylenol Extra Strength) aspirin 81 mg tablet,delayed 81 mg PO QAM 30 days #30 tabs 05/14/23 08/14/25 08/03/25 release blood sugar diagnostic (OneTouch #100 ea 05/14/23 08/14/25 Unknown Verio test strips) lancets 33 gauge (OneTouch Delica #100 ea 05/14/23 08/14/25 Unknown Plus Lancet) pen needle, diabetic 32 gauge x #100 ea 05/14/23 08/14/25 Unknown " blood-glucose,environmental auditor,cont #1 ea 08/04/23 08/14/25 Unknown (Dexcom G7 Diver Tender) insulin glargine 100 unit/mL (3 0 unit subcut QPM 07/24/24 08/14/25 Unknown mL) subcutaneous pen (Lantus Solostar U-100 Insulin) nystatin 100,000 unit/gram topical 1 applic topical BID PRN Other 07/24/24 08/14/25 Unknown powder albuterol sulfate 90 mcg/actuation 2 puff inhalation QID PRN 08/17/24 08/14/25 Unknown aerosol inhaler shortness of breath or wheezing #8.5 grams blood-glucose sensor (Dexcom G7 #3 ea 03/14/25 08/14/25 Unknown Sensor device) insulin aspart U-100 100 unit/mL See Rx Instructions subcut TID #15 03/14/25 08/14/25 Unknown (3 mL) subcutaneous pen (Novolog mL FlexPen U-100 Insulin aspart) losartan 50 mg-hydrochlorothiazide 1 tab PO DAILY #30 tabs 03/26/25 08/14/25 08/03/25 12.5 mg tablet clopidogrel 75 mg tablet 75 mg PO QAM 30 days #30 tabs 08/01/25 08/14/25 08/03/25 insulin human U-100 NPH-regulr 20 unit (0.2 mL) subcut BID #10 mL 08/13/25 08/14/25 Unknown 70-30 mix 100 unit/mL subcutaneous susp (Humulin 70/30 U-100 Insulin) insulin syringe-needle U-100 0.3 #100 ea 08/13/25 08/14/25 Unknown mL 31 gauge x 5/16" metoprolol succinate 100 mg 100 mg PO DAILY #30 tabs 08/13/25 08/14/25 Unknown tablet,extended release 24 hr sulfamethoxazole 800 1 tab PO BID #20 tabs 08/13/25 08/14/25 Unknown mg-trimethoprim 160 mg tablet (Bactrim DS) Active Medications Generic Name Dose Route Start Last Admin Trade Name Freq PRN Reason Stop Dose Admin Aspirin 81 mg 08/15/25 09:00 08/15/25 09:23 Aspirin 81 Mg Ectab PO 09/14/25 08:59 81 mg QAM ANTONIO Administration Clopidogrel Bisulfate 75 mg 08/15/25 09:00 08/15/25 09:23 Clopidogrel Bisulfate 75 Mg Tab PO 09/14/25 08:59 75 mg QAM ANTONIO Administration Metronidazole 500 mg in 100 mls @ 100 mls/hr 08/14/25 21:00 08/15/25 09:11 Flagyl IV 08/21/25 20:59 Infused Q8H ANTONIO Infusion Protocol Insulin Aspart 0 units 08/15/25 00:00 08/15/25 06:16 Insulin Aspart Per Unit Charge SC 09/14/25 00:00 2 units Q6 ANTONIO Administration Insulin Glargine 10 units 08/15/25 09:00 08/15/25 09:21 Lantus Per Unit Charge SC 09/13/25 21:14 10 units BID ANTONIO Administration Metoprolol Succinate 100 mg 08/15/25 09:00 08/15/25 09:22 Metoprolol Succ 50mg Ext Rel Tab PO 09/14/25 08:59 Not Given DAILY ANTONIO Past Medical History Medical History History of asthma History of recent hospitalization pt admitted [facility] 05/09/23-05/14/23: dx PNA, HF with reduced EF, ischemic CM, CAD (s/p stent placement), postmenopausal bleeding with uterine mass. Pt readmitted 05/29/23-05/30/23 for hypotension 2/2 medications and elevated troponin 2/2 demand ischemia Encounter for pre-operative examination Hypertension Hyperlipidemia Diabetes mellitus, type 2 IDDM; 05/29/23 Ha1c: 10.0% Past Family History Family History Grandmother (Paternal) Breast cancer Brother Myocardial infarction Heart disease Family/Other Heart disease Denies family history of Ovarian cancer Prostate cancer Colorectal cancer Past Surgical History Surgical History History of dilatation and curettage x2 History of esophagogastroduodenoscopy (EGD) History of heart artery stent (2022) 05/12/23, [facility], "shortness of breath-went to ER-found to have had a heart attack 3-4 weeks earlier, also dx with pneumonia">x1 stent; f/u dr. herrera, [facility] History of cardiac cath 05/12/23, [facility], "shortness of breath-went to ER-found to have had a heart attack 3-4 weeks earlier, also dx with pneumonia">x1 stent; f/u dr. herrera, [facility] History of tonsillectomy (1983) age 19 Social History Smoking Status: Unknown if ever smoked tobacco type: cigarettes Do You Dip or Chew Tobacco: No Hx Alcohol Use: No Hx Substance Use: No substance use type: does not use Last Used Substance Other:: 6 months ago Physical Exam Vital Signs Last Vital Signs Temp 36.6 C 08/15/25 07:38 Pulse 69 08/15/25 07:38 Resp 16 08/15/25 07:38 BP 94/59 L 08/15/25 07:38 Pulse Ox 96 08/15/25 07:38 O2 Del Method Room Air 08/15/25 07:38 Testing Laboratory Results 08/14/25 13:00 08/14/25 13:00 Hemoglobin A1c 15.0 % (4.5-5.6) H 08/14/25 13:00 08/14/25 15:21 Gram Stain - Final Abdomen Wound Culture - Preliminary Pin-point growth present, reincubating. 08/15/25 08/15/25 08/15/25 06:06 03:00 00:13 POC Glucose 215 H 180 H 93
--- NOTE | 2025-08-15 11:50 | Pharmacy Report ---
Pharmacy Glycemic Short Note 2 - Date of Service August 15, 2025 - Glycemic Short BSG Results (Last 24 hours): 08/14/25 08/14/25 08/15/25 13:00 20:35 00:13 Glucose 449 H* POC Glucose 468 H* 93 08/15/25 08/15/25 03:00 06:06 Glucose POC Glucose 180 H 215 H OUTPATIENT ANTIDIABETIC REGIMEN: * Patient has been unable to afford diabetes medications and has not been taking anything leading up to admission HbA1c: 15% (08/14/25) ASSESSMENT: * PIANO REGULATOR is a 60 year old female who presented to ED on 08/14/25 due to abdominal abscess with continued purulent drainage * I&D scheduled for today * Patient reports having stopped taking insulin due to affordability/insurance issues * Hyperglycemia on presentation >400 mg/dL, given IV insulin bolus and SC basal/bolus * Currently NPO for surgery PLAN FOR INPATIENT GLYCEMIC CONTROL: * Hold outpatient oral diabetes medications * Basal insulin * Lantus 10 units SC x 1 this morning * Lantus 0-10-15 units SC HS x 1 * Reassess in AM * Bolus insulin * NovoLog per scale ACHS or Q6hrs while NPO * Goal Range: Low 110 mg/dL - High 140 mg/dL * Correction Factor: 20 mg/dL/unit * Nutritional / Prandial insulin per carb ratio of 1 unit per 5 grams CHO consumed
[2025-08-15 12:21] LABS: Anion Gap 7.0 (3-11); Blood Urea Nitrogen 17.0 mg/dl (6-23); Calcium 9.1 mg/dl (8.6-10.3); Carbon Dioxide 32.0 mmol/L (21-32); Chloride 95.0 mmol/L (98-107); Creatinine Clr Calc Pharmacy 74.1 ml/min; Glucose 190.0 mg/dl (70-99(Fasting)); Potassium 4.0 mmol/L (3.5-5.1); Sodium 134.0 mmol/L (136-145)
[2025-08-15] MEDS: DAPTOmycin 500 MG in SYRINGE 0 ML IV SCH (15:02)
[2025-08-15] MEDS: cefTRIAXone SODIUM 2,000 MG/50 ML BAG IV SCH (15:02)
[2025-08-15] MEDS ORDERED: DEXAMETHASONE SOD INJ 4 MG/ML VIAL ONE (15:47)
[2025-08-15] MEDS ORDERED: ONDANSETRON INJ 2 MG/ML 2 ML VIAL ONE (15:47)
[2025-08-15] MEDS ORDERED: PROPOFOL IV EMULSION 10 MG/ML 20 ML VIAL IV ONE (15:47)
[2025-08-15] MEDS ORDERED: LIDOCAINE 2% 2 ML VIAL/AMP(20MG/ML) INFIL ONE (15:47)
[2025-08-15] MEDS ORDERED: MIDAZOLAM HCL 1 MG/ML 2ML VIAL ONE (15:48)
[2025-08-15] MEDS: LACTATED RINGER'S 1,000 ML IV SCH (16:07)
--- NOTE | 2025-08-15 16:10 | History & Physical Bridge Note ---
Date of Service August 15, 2025 History & Physical Bridge Note I have examined the patient, reviewed the History & Physical and in the interval since the performance of the History & Physical I have noted the following changes of clinical significance: no changes noted CT reviewed. +large fluid collection. discussed options/risks. recommend incision and drainage. pt agreeable. will proceed this afternoon.
[2025-08-15] MEDS ORDERED: ONDANSETRON INJ 2 MG/ML 2 ML VIAL IV PRN (16:18)
[2025-08-15] MEDS ORDERED: PROMETHAZINE HCL 6.25 MG in SODIUM CHLORIDE 0.9% 50 ML IV PRN (16:18)
[2025-08-15] MEDS ORDERED: ATROPINE SULFATE 0.1 MG/ML 10ML SYR IV PRN (16:18)
--- NOTE | 2025-08-15 16:53 | Operative Report ---
PG Post Operative Report Pre & Post Diagnosis Operation Date: 08/15/25 10:45 Pre-Op Diagnosis: Abdominal Wall Abscess Post-Op Diagnosis: Abdominal Wall Abscess I identified the patient and participated in the time-out.: Yes Procedure Operation Date: 08/15/25 10:45 Actual Procedures p Incision and Drainage Abdominal Wall Abscess - Russell Barker DO Surgeon Russell Barker DO Blade Sharpener OR staff Estimated Blood Loss 10 Findings Consistent with Post-Op Diagnosis Specimens fluid for gram stain/culture Description of Procedure After informed consent was obtained the patient was taken the operating room placed in supine position. After successful placement of laryngeal mask airway the abdominal wall was sterilely prepped and draped in usual fashion. I began by starting at the small pinhole with drainage and extending that laterally with 15 blade scalpel. I was then able to readily obtain some yellow fluid and sent some for Gram stain culture and sensitivity. I stuck my finger into the cavity and extended the opening for several more centimeters laterally. Once I was in the cavity I was able to suction out all the purulent fluid. Other than some inflammatory tissue no other gross abnormalities were identified. The cavity was thoroughly irrigated and packed with 1 inch iodoform packing. A sterile dressing was applied. The patient was awakened extubated and transferred recovery in stable condition. I attest to the content of the Intraoperative Record and any orders documented therein. Any exceptions are noted below.
--- NOTE | 2025-08-15 17:25 | Anesthesiology Progress Note ---
Date of Service August 15, 2025 Anesthesia Post Procedure Vital Signs Vital Signs: Temp Pulse Pulse Pulse Resp BP BP 08/15/25 17:15 71 20 111/82 08/15/25 17:05 73 12 126/81 08/15/25 16:58 36 C L 87 14 138/79 08/15/25 15:59 36.6 C 68 20 131/79 08/15/25 14:52 36.8 C 68 16 121/78 08/15/25 07:38 36.6 C 69 16 94/59 L 08/14/25 20:45 08/14/25 20:45 36.6 C 80 113/72 08/14/25 20:13 66 18 128/95 08/14/25 19:36 74 16 121/67 08/14/25 18:00 70 22 08/14/25 18:00 127/75 08/14/25 18:00 127/75 08/14/25 18:00 127/75 08/14/25 18:00 127/75 08/14/25 18:00 127/75 08/14/25 17:30 71 17 08/14/25 17:30 107/56 L 08/14/25 17:30 107/56 L 08/14/25 17:30 107/56 L 08/14/25 17:30 107/56 L 08/14/25 17:30 107/56 L Pulse Ox O2 Del Method O2 Flow Rate 08/15/25 17:15 98 Room Air 08/15/25 17:05 96 Room Air 08/15/25 16:58 98 Oxymask 6 08/15/25 15:59 98 Room Air 08/15/25 14:52 93 Room Air 08/15/25 07:38 96 Room Air 08/14/25 20:45 Room Air 08/14/25 20:45 92 Room Air 08/14/25 20:13 97 08/14/25 19:36 95 08/14/25 18:00 95 08/14/25 18:00 08/14/25 18:00 08/14/25 18:00 08/14/25 18:00 08/14/25 18:00 08/14/25 17:30 94 08/14/25 17:30 08/14/25 17:30 08/14/25 17:30 08/14/25 17:30 08/14/25 17:30 Pain Intensity Right Lower Abdomen: Pain Intensity: 6 Transfer of Care Handoff Completed per policy Notes Mental Status: alert / awake / arousable and participated in evaluation Patient Amnestic to Procedure: Yes Nausea / Vomiting: adequately controlled Pain: adequately controlled Airway Patency, RR, SpO2: stable & adequate BP & HR: stable & adequate Hydration State: stable & adequate Anesthetic Complications: no major complications apparent and Pt Satisfied with anesthetic care
[2025-08-15] MEDS: BUPIVACAINE/EPINEPHRINE 0.5% MPF 1:200,000 30 ML VIAL ONE (18:10)
[2025-08-15] MEDS ORDERED: Nursing to Pharmacy Communication SCH (19:30)
[2025-08-15] MEDS ORDERED: INSULIN ASPART PER UNIT CHARGE SC STA (20:50)
[2025-08-16] MEDS: INSULIN ASPART PER UNIT CHARGE SC SCH (08:17)
[2025-08-16 08:20] LABS: Hematocrit (blood only) 34.9 % (37.0-47.0); Hemoglobin 11.4 g/dl (12.0-16.0); Immature Granulocytes # (auto) 0.03 K/uL (0.01-0.20); Immature Granulocytes % (auto) 0.3 %; Mean Corpuscular Hemoglobin 27.3 pg (25.0-34.0); Mean Corpuscular Volume 83.5 fL (80.0-100.0); Platelet Count 315 K/uL (130-400); RDW Standard Deviation 38.6 fL (36.4-46.3); Red Blood Count 4.18 M/uL (4.20-5.40); White Blood Count 9.10 K/ul (4.8-10.8)
[2025-08-16] MEDS: LANTUS PER UNIT CHARGE SC SCH ×2 (08:21→21:27)
[2025-08-16 08:45] LABS: Anion Gap 9.0 (3-11); Blood Urea Nitrogen 16.0 mg/dl (6-23); Calcium 8.7 mg/dl (8.6-10.3); Carbon Dioxide 27.0 mmol/L (21-32); Chloride 98.0 mmol/L (98-107); Creatinine Clr Calc Pharmacy 89.7 ml/min; Glucose 155.0 mg/dl (70-99(Fasting)); Potassium 3.8 mmol/L (3.5-5.1); Sodium 134.0 mmol/L (136-145)
[2025-08-16] MEDS ORDERED: LANTUS PER UNIT CHARGE SC SCH (09:00)
--- NOTE | 2025-08-16 09:40 | Surgery Progress Note ---
Date of Service August 16, 2025 Assessment & Plan (1) Abdominal wall abscess: Plan: POD#1 I&D of abdominal abscess WBC 9, micro is pending. vitals stable afebrile pt feels well, pain improved surgical dressings soiled in serous/bloody drainage. changed today Will allow wound care to take over and consider vac vs other dressing recommendations Cater abx towards culture data We will sign off but please call with any questions/concerns Admission and Anticipated Discharge Date Admission Date: August 14, 2025 Subjective Patient feeling better. Has relief of her pain after the incision/drainage. Physical Exam Physical Exam: awake/alert, no distress Gastrointestinal (Abdomen): Percussion/Palpation: + abdomen tender (mild discomfort around incision) and abdomen soft incision this AM was with soiled dressings/abd/gauze, removed and changed Results & Data Vital Signs (Past 12 Hours) Vital Signs Temp Pulse Resp BP BP Pulse Ox O2 Del Method 08/16/25 07:53 97.9 F 74 16 130/77 92 Room Air 08/16/25 03:02 98.1 F 75 18 117/65 95 Room Air 08/15/25 23:00 97.5 F L 78 18 117/75 Room Air 08/15/25 22:10 Room Air PG Care Time/CCT Total # of Minutes Spent Total Time Spent with Patient: Total time spent is greater than 50% in coordination of care (as documented) at patient's floor/unit and/or counseling patient: Coding Level of Care Code 99068 Post Operative Follow-Up Diagnoses Abdominal wall abscess L02.211
--- NOTE | 2025-08-16 10:57 | Hospitalist Progress Note ---
"Date of Service August 16, 2025 Assessment & Plan (1) Abdominal wall abscess: (2) Diabetes mellitus treated with insulin and oral medication: (3) CAD (coronary artery disease): (4) Status post insertion of drug-eluting stent into left anterior descending (LAD) artery: (5) Hypertension: (6) Hyperlipidemia: Plan This is a 60 year old female with a PMH of DM2, CAD s/p stenting, HTN, HLD who presented to the ED on 08/14/2025 with a chief complaint of an abdominal wall abscess. #Abdominal wall Abscess/Cellulitis CTAP: soft tissue edema & swelling in right anterior pelvic wall. 6.7x2.3x2.6cm fluid collection. CBC w/o leukocytosis. BMP w/ stable renal function & electrolytes. s/p I&D w/ Dr. Barker on 08/15. Surgery has since signed off & wound nurse now following; wound vac placed 08/16. Cultures taken from OR w/ no growth to date. Gram stain w/ moderate gm + & rare gm - Stop Flagyl, continue Rocephin/Dapto. MRSA nasal swab pending. #Type 2 DM A1c 15%; outpatient regimen includes Lantus, Aspart, and NPH (hold) Pharmacy aiding in glycemic management while inpatient. Consult life skills educator. #CAD | HTN hx of stents - continue ASA & Plavix Continue Metoprolol Losartan/HCTZ currently held. DVT prophylaxis: Lovenox added 08/16 Code: full Admission and Anticipated Discharge Date Admission Date: August 14, 2025 Supervising Physician Co-Signing Physician Notes PA Supervision Note: I did not personally see or examine the patient today, but I verified all marquez points of CAROLINE Moreno's assessment and plan with the following exceptions/additions: None Subjective Jane was seen& examined this morning. She reports she is feeling better today. She states that the surgery team was in to look at her wound & removed the packing. She reports discomfort in her wound area. She denies any N/V, CP, or SOB. Physical Exam Physical Exam: General: NAD, VS: BP 106/72; P78; R16; T36.8C Resp: normal respiratory effort Extremities: Moves all extremities, no edema Neuro: A&O x3 Results & Data Results & Data Vital Signs (Past 12 Hours) Vital Signs Temp Pulse Resp BP BP Pulse Ox O2 Del Method 08/16/25 07:53 36.6 C 74 16 130/77 92 Room Air 08/16/25 03:02 36.7 C 75 18 117/65 95 Room Air 08/15/25 23:00 36.4 C L 78 18 117/75 Room Air PG Care Time/CCT Total # of Minutes Spent Total Time Spent with Patient: Total time spent is greater than 50% in coordination of care (as documented) at patient's floor/unit and/or counseling patient: Coding Level of Care Code 47123 SUB INP/OBS CARE 2/35MIN Diagnoses Abdominal wall abscess L02.211 Diabetes mellitus treated with insulin and oral medication E11.9; Z79.4; Z79.84 Coronary artery disease involving [place] heart without angina pectoris, unspecified vessel or lesion type I25.10 Associated angina: without angina Coronary Disease-Associated Artery/Lesion type: unspecified vessel or lesion type [place] vs. transplanted heart: [place] heart Status post insertion of drug-eluting stent into left anterior descending (LAD) artery Z95.5 Primary hypertension I10 Hypertension type: primary hypertension Pure hypercholesterolemia E78.00 Hyperlipidemia type: pure hypercholesterolemia (3) CAD (coronary artery disease) Associated angina: without angina Coronary Disease-Associated Artery/Lesion type: unspecified vessel or lesion type [place] vs. transplanted heart: [place] heart Qualified Code(s): I25.10 - Atherosclerotic heart disease of [place] coronary artery without angina pectoris (5) Hypertension Hypertension type: primary hypertension Qualified Code(s): I10 - Essential (primary) hypertension (6) Hyperlipidemia Hyperlipidemia type: pure hypercholesterolemia Qualified Code(s): E78.00 - Pure hypercholesterolemia, unspecified"
--- NOTE | 2025-08-16 12:31 | Electrocardiogram Report ---
Test Reason : Blood Pressure : */* mmHG Vent. Rate : 71 BPM Atrial Rate : 71 BPM P-R Int : 168 ms QRS Dur : 82 ms QT Int : 418 ms P-R-T Axes : 61 42 68 degrees QTcB Int : 454 ms Normal sinus rhythm Septal infarct (cited on or before 09-May-2023) Abnormal ECG When compared with ECG of 08-Aug-2024 03:49, No significant change was found Confirmed by Pancho Yusuf ([id number]) on 08/16/2025 12:31:42 PM Referred By: Russell Barker Confirmed By: Pancho Yusuf
--- NOTE | 2025-08-16 12:44 | Pharmacy Report ---
Pharmacy Glycemic Short Note 2 - Date of Service August 16, 2025 - Glycemic Short BSG Results (Last 24 hours): 08/15/25 08/15/25 08/15/25 15:58 17:01 20:34 Glucose POC Glucose 155 H 138 H 416 H* 08/15/25 08/16/25 08/16/25 20:52 00:30 00:33 Glucose POC Glucose 420 H* 317 H* 323 H* 08/16/25 08/16/25 08/16/25 04:03 07:39 07:57 Glucose 155 H POC Glucose 234 H 147 H 08/16/25 11:44 Glucose POC Glucose 236 H OUTPATIENT ANTIDIABETIC REGIMEN: * Patient has been unable to afford diabetes medications and has not been taking anything leading up to admission HbA1c: 15% (08/14/25) ASSESSMENT: 08/16: * Blood sugars elevated last evening following I&D (received 8 mg IV dexamethasone) * Tightened Novolog this morning/afternoon to cover for steroid-induced hyperglycemia * Will loosen now that steroids have been discontinued * Please see CDE note in regards to recommendations at discharge 08/15: * 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 to ED on 08/14/25 due to abdominal abscess with continued purulent drainage * I&D scheduled for today * Patient reports having stopped taking insulin due to affordability/insurance issues * Hyperglycemia on presentation >400 mg/dL, given IV insulin bolus and SC basal/bolus * Currently NPO for surgery PLAN FOR INPATIENT GLYCEMIC CONTROL: * Hold outpatient oral diabetes medications * Basal insulin * Lantus 20 units SC x 1 this morning * Lantus 0-5-10 units SC HS * Reassess in AM * Bolus insulin * NovoLog per scale ACHS or Q6hrs while NPO * Goal Range: Low 110 mg/dL - High 140 mg/dL * Correction Factor: 20 mg/dL/unit * Nutritional / Prandial insulin per carb ratio of 1 unit per 7 grams CHO consumed
[2025-08-16] MEDS: ENOXAPARIN INJ 40 MG/0.4 ML SYR SQ SCH (21:25)
[2025-08-17 06:49] LABS: Hematocrit (blood only) 34.2 % (37.0-47.0); Hemoglobin 11.2 g/dl (12.0-16.0); Mean Corpuscular Hemoglobin 27.6 pg (25.0-34.0); Mean Corpuscular Volume 84.2 fL (80.0-100.0); Platelet Count 290 K/uL (130-400); RDW Standard Deviation 39.9 fL (36.4-46.3); Red Blood Count 4.06 M/uL (4.20-5.40); White Blood Count 5.56 K/ul (4.8-10.8)
[2025-08-17 07:10] LABS: Anion Gap 8.0 (3-11); Blood Urea Nitrogen 21.0 mg/dl (6-23); Calcium 8.5 mg/dl (8.6-10.3); Carbon Dioxide 27.0 mmol/L (21-32); Chloride 98.0 mmol/L (98-107); Creatinine Clr Calc Pharmacy 88.6 ml/min; Glucose 199.0 mg/dl (70-99(Fasting)); Potassium 4.3 mmol/L (3.5-5.1); Sodium 133.0 mmol/L (136-145)
[2025-08-17] MEDS: LANTUS PER UNIT CHARGE SC SCH (08:48)
[2025-08-17] MEDS ORDERED: SODIUM CHLORIDE 0.9% 1,000 ML IV SCH (09:15)
--- NOTE | 2025-08-17 12:08 | Hospitalist Progress Note ---
"Date of Service August 17, 2025 Assessment & Plan (1) Abdominal wall abscess: (2) Diabetes mellitus treated with insulin and oral medication: (3) CAD (coronary artery disease): (4) Status post insertion of drug-eluting stent into left anterior descending (LAD) artery: (5) Hypertension: (6) Hyperlipidemia: (7) Ischemic cardiomyopathy: (8) Chronic HFrEF (heart failure with reduced ejection fraction): (9) Does not have health insurance: Plan 60yo female with DM2, CAD s/p stents, chronic HFrEF previously followed by [facility], HTN, Hyperlipidemia. Presented with persistent abdominal wall abscess. This has been present going back to July. #Abdominal wall Abscess/Cellulitis - -thus far all cultures negative but gram stain has been + for GPC and GMR -cont daptomycin IV and rocephin IV -at discharge consider combination of keflex + doxy --or-- keflex + zyvox vs other regimen -s/p I&D of abscess by Dr. Barker on 08/15 - appreciate his assistance -s/p wound vac placement on 08/16 - wound care team to exchange on 08/19 #Type 2 DM - -HbA1c 15% -had not been taking insulin as outpatient due to lack of health insurance -certainly her uncontrolled DM contributed to heightened risk for the abd wall abscess -appreciate assistance from pharmacy glycemic team -cont basal-bolus insulin -appreciate retail visual merchandiser assistance -patient does have medical assistance/Medicaid application pending #CAD | HTN - -hx of stents - continue ASA & Plavix -reduce dose of metoprolol succinate from 100mg/day to 25mg/day -cont to hold Losartan/HCTZ #chronic HFrEF - -previous echo in 2022 with EF 35-40% with grade 1 diastolic dysfunction -will obtain updated echo to recheck LV EF, etc. -compensated on exam today -her meto succ dose of 100mg daily has been held due to low-normal BPs -will reduce dose to 25mg/day -her losartan-HCTZ is also on hold at this time DVT prophylaxis: Lovenox daily progressing Admission and Anticipated Discharge Date Admission Date: August 14, 2025 Subjective patient sitting in chair by window mild soreness at site of her abd wall abscess/wound vac however, she overall feels well denies other complaints eating well confirms she does not have insurance and that is why she wasn't taking anything for DM at home previously took insulin in the past Review of Systems Review of Systems: gen - no fevers, no chills cv - no chest pain pulm - no dyspnea or CARDOZO GI - no diarrhea Physical Exam Physical Exam: gen - NAD, pleasant, sitting in chair by window neck - no JVD mouth - MMM heart - RRR, s1 s2, no murmur lungs - CTA b/l abd - soft NT ND BS+; wound vac in place right lower abdominal wall; no abd wall cellulitis ext - no edema, pulses 2+ b/l feet psych - a/o x 3 Results & Data Results & Data Vital Signs (Past 12 Hours) Vital Signs Temp Pulse Resp BP Pulse Ox O2 Del Method 08/17/25 07:40 36.9 C 72 16 99/68 L 94 Room Air Laboratory Results Laboratory Results - last 48 hr 08/16/25 08/16/25 08/16/25 07:39 07:57 11:44 WBC 9.10 RBC 4.18 L Hgb 11.4 L Hct 34.9 L MCV 83.5 MCH 27.3 MCHC 32.7 RDW Std Deviation 38.6 RDW Coeff of Viktor 12.9 Plt Count 315 MPV 9.6 Immature Gran % (Auto) 0.3 Neut % (Auto) 74.6 Lymph % (Auto) 16.8 [place] % (Auto) 7.8 Eos % (Auto) 0.2 Baso % (Auto) 0.3 Neut # (Auto) 6.78 H Lymph # (Auto) 1.53 [place] # (Auto) 0.71 H Eos # (Auto) 0.02 Baso # (Auto) 0.03 Immature Gran # (Auto) 0.03 Sodium 134 L Potassium 3.8 Chloride 98 Carbon Dioxide 27 Anion Gap 9 BUN 16 Creatinine 0.76 Est Cr Clr Drug Dosing 89.7 eGFR 89.65 BUN/Creatinine Ratio 21.1 H Glucose 155 H POC Glucose 147 H 236 H Calcium 8.7 Nasal Screen MRSA (PCR) 08/16/25 08/16/25 08/16/25 15:30 16:19 20:09 WBC RBC Hgb Hct MCV MCH MCHC RDW Std Deviation RDW Coeff of Viktor Plt Count MPV Immature Gran % (Auto) Neut % (Auto) Lymph % (Auto) [place] % (Auto) Eos % (Auto) Baso % (Auto) Neut # (Auto) Lymph # (Auto) [place] # (Auto) Eos # (Auto) Baso # (Auto) Immature Gran # (Auto) Sodium Potassium Chloride Carbon Dioxide Anion Gap BUN Creatinine Est Cr Clr Drug Dosing eGFR BUN/Creatinine Ratio Glucose POC Glucose 87 175 H Calcium Nasal Screen MRSA (PCR) Negative 08/17/25 08/17/25 08/17/25 06:11 07:43 11:57 WBC 5.56 RBC 4.06 L Hgb 11.2 L Hct 34.2 L MCV 84.2 MCH 27.6 MCHC 32.7 RDW Std Deviation 39.9 RDW Coeff of Viktor 13.1 Plt Count 290 MPV 9.6 Immature Gran % (Auto) Neut % (Auto) Lymph % (Auto) [place] % (Auto) Eos % (Auto) Baso % (Auto) Neut # (Auto) Lymph # (Auto) [place] # (Auto) Eos # (Auto) Baso # (Auto) Immature Gran # (Auto) Sodium 133 L Potassium 4.3 Chloride 98 Carbon Dioxide 27 Anion Gap 8 BUN 21 Creatinine 0.77 Est Cr Clr Drug Dosing 88.6 eGFR 88.26 BUN/Creatinine Ratio 27.3 H Glucose 199 H POC Glucose 200 H 191 H Calcium 8.5 L Nasal Screen MRSA (PCR) Diagnostic Findings Microbiology 08/15/25 Unknown Abdomen Gram Stain - Final 08/15/25 Unknown Abdomen Aerobic and Anaerobic Culture - Preliminary No growth to date. 08/14/25 15:21 Abdomen Gram Stain - Final 08/14/25 15:21 Abdomen Wound Culture - Final Low counts mixed probable skin microbiota. No further identifications or sensitivities to follow. PG Care Time/CCT Total # of Minutes Spent Total Time Spent with Patient: Total time spent is greater than 50% in coordination of care (as documented) at patient's floor/unit and/or counseling patient: Coding Level of Care Code 37681 SUB INP/OBS CARE 2/35MIN Diagnoses Abdominal wall abscess L02.211 Diabetes mellitus treated with insulin and oral medication E11.9; Z79.4; Z79.84 Coronary artery disease involving [place] heart without angina pectoris, unspecified vessel or lesion type I25.10 Associated angina: without angina Coronary Disease-Associated Artery/Lesion type: unspecified vessel or lesion type [place] vs. transplanted heart: [place] heart Status post insertion of drug-eluting stent into left anterior descending (LAD) artery Z95.5 Primary hypertension I10 Hypertension type: primary hypertension Pure hypercholesterolemia E78.00 Hyperlipidemia type: pure hypercholesterolemia Ischemic cardiomyopathy I25.5 Chronic HFrEF (heart failure with reduced ejection fraction) I50.22 Does not have health insurance Z59.71 (3) CAD (coronary artery disease) Associated angina: without angina Coronary Disease-Associated Artery/Lesion type: unspecified vessel or lesion type [place] vs. transplanted heart: [place] heart Qualified Code(s): I25.10 - Atherosclerotic heart disease of [place] coronary artery without angina pectoris (5) Hypertension Hypertension type: primary hypertension Qualified Code(s): I10 - Essential (primary) hypertension (6) Hyperlipidemia Hyperlipidemia type: pure hypercholesterolemia Qualified Code(s): E78.00 - Pure hypercholesterolemia, unspecified"
--- NOTE | 2025-08-17 15:00 | XCELERA ---
[id number]\[id number]
[2025-08-18] MEDS: CARBOHYDRATES FOR HYPOGLYCEMIA PO PRN (00:10)
[2025-08-18] MEDS: METOPROLOL SUCC 25MG EXT REL TAB PO SCH (07:53)
[2025-08-18] MEDS: LANTUS PER UNIT CHARGE SC SCH (08:32)
[2025-08-18] MEDS: VALSARTAN/SACUBITRIL 26/24MG TAB PO SCH (09:52)
--- NOTE | 2025-08-18 14:34 | Pharmacy Report ---
Pharmacy Glycemic Short Note 2 - Date of Service August 18, 2025 - Glycemic Short BSG Results (Last 24 hours): 08/17/25 08/17/25 08/18/25 16:31 20:23 00:01 POC Glucose 224 H 199 H 58 L* 08/18/25 08/18/25 08/18/25 00:08 00:29 01:28 POC Glucose 57 L* 71 141 H 08/18/25 08/18/25 07:44 11:14 POC Glucose 170 H 226 H OUTPATIENT ANTIDIABETIC REGIMEN: * Patient has been unable to afford diabetes medications and has not been taking anything leading up to admission HbA1c: 15% (08/14/25) ASSESSMENT: 08/18: * Patient received total of 75 units of insulin yesterday, of which 30 units were basal * BSGs trending down overnight ~58 mg/dL - treated with juice. 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 on 08/14/25 due to abdominal abscess with continued purulent drainage * I&D scheduled for today * Patient reports having stopped taking insulin due to affordability/insurance issues * Hyperglycemia on presentation >400 mg/dL, given IV insulin bolus and SC basal/bolus * Currently NPO for surgery PLAN FOR INPATIENT GLYCEMIC CONTROL: * Hold outpatient oral diabetes medications * Basal insulin * Lantus 20 units SC x 1 this morning * Bolus insulin * NovoLog per scale ACHS or Q6hrs while NPO * Goal Range: Low 110 mg/dL - High 140 mg/dL * Correction Factor: 25 mg/dL/unit * Nutritional / Prandial insulin per carb ratio of 1 unit per 7 grams CHO consumed
[2025-08-18 20:41] LABS: Cdiff Toxin B Gene (2yr or >) Negative Cdiff Gene (Neg)
--- NOTE | 2025-08-18 20:49 | Hospitalist Progress Note ---
"Date of Service August 18, 2025 Assessment & Plan (1) Abdominal wall abscess: (2) Diabetes mellitus treated with insulin and oral medication: (3) CAD (coronary artery disease): (4) Status post insertion of drug-eluting stent into left anterior descending (LAD) artery: (5) Hypertension: (6) Hyperlipidemia: (7) Ischemic cardiomyopathy: (8) Chronic HFrEF (heart failure with reduced ejection fraction): (9) Does not have health insurance: Plan 60yo female with DM2, CAD s/p stents, chronic HFrEF previously [facility] by [facility], HTN, Hyperlipidemia. Presented with persistent abdominal wall abscess. This has been present going back to July. #Abdominal wall Abscess/Cellulitis - -thus far all cultures negative (including intra-op culture) but gram stain did show GPC and GNR -cont daptomycin IV and rocephin IV -at discharge consider combination of keflex + doxy --or-- keflex + zyvox vs other regimen -s/p I&D of abscess by Dr. Barker on 08/15 - appreciate his assistance -s/p wound vac placement on 08/16 - wound care team to exchange on 08/19 -no issues with wound vac over this weekend #Type 2 DM - -HbA1c 15% -had not been taking insulin as outpatient due to lack of health insurance -certainly her uncontrolled DM contributed to heightened risk for the abd wall abscess -appreciate assistance from pharmacy glycemic team -cont basal-bolus insulin; they are aware of hypoglycemia this am -appreciate chemical educator assistance -patient does have medical assistance/Medicaid application pending #CAD | HTN - -hx of stents - continue ASA & Plavix -reduce dose of metoprolol succinate from 100mg/day to 25mg/day -add back low-dose Entresto BID #chronic HFrEF - -previous echo in 2022 with EF 35-40% with grade 1 diastolic dysfunction -updated echo - EF 45-50%, grade 1 diastolic dysfunction, multiple WMA's (but chronic) -compensated on exam today once again -her meto succ dose of 100mg daily has been held due to low-normal BPs -resumed the meto succ but will do so at 25mg/day -stop losartan-HCTZ; substitute Entresto BID low-dose BMP am DVT prophylaxis: Lovenox daily progressing nicely hopefully home next 48 hours Admission and Anticipated Discharge Date Admission Date: August 14, 2025 Subjective was feeling very tired this am had hypoglycemia this am - sugars since have been normal having fluctuating stools - had 5+ loose stools (small) since the am, then had a normal calibre stool this afternoon minimal R abd wall discomfort no dyspnea otherwise feels well eating ok Review of Systems Review of Systems: gen - no fevers or chills cv - no cp, no edema pulm - no dyspnea GI - no abd pain or N/V Physical Exam Physical Exam: gen - NAD, pleasant, sitting in chair by window; looks well neck - no JVD mouth - MMM heart - RRR, s1 s2, no murmur lungs - CTA b/l abd - soft NT ND BS+; wound vac in place right lower abdominal wall; again no abd wall cellulitis ext - no edema, pulses 2+ b/l feet psych - a/o x 3 Results & Data Results & Data Vital Signs (Past 12 Hours) Vital Signs Temp Pulse Resp BP Pulse Ox O2 Del Method 08/18/25 15:10 36.6 C 84 16 125/82 97 Room Air 08/18/25 09:52 89 120/85 Laboratory Results Laboratory Results - last 24 hr 08/18/25 08/18/25 08/18/25 00:01 00:08 00:29 POC Glucose 58 L* 57 L* 71 Stl C. diff Tox B Gene Stl C. diff [id number] 08/18/25 08/18/25 08/18/25 01:28 07:44 11:14 POC Glucose 141 H 170 H 226 H Stl C. diff Tox B Gene Stl C. diff [id number] 08/18/25 08/18/25 08/18/25 14:35 16:30 19:45 POC Glucose 137 H 155 H Stl C. diff Tox B Gene Negative Cdiff Gene Stl C. diff [id number] NEGATIVE Diagnostic Findings Microbiology 08/15/25 Unknown Abdomen Gram Stain - Final 08/15/25 Unknown Abdomen Aerobic and Anaerobic Culture - Preliminary Moderate counts mixed probable skin microbiota. 08/14/25 15:21 Abdomen Gram Stain - Final 08/14/25 15:21 Abdomen Wound Culture - Final Low counts mixed probable skin microbiota. No further identifications or sensitivities to follow. PG Care Time/CCT Total # of Minutes Spent Total Time Spent with Patient: Total time spent is greater than 50% in coordination of care (as documented) at patient's floor/unit and/or counseling patient: Coding Level of Care Code 84940 SUB INP/OBS CARE 235MIN Diagnoses Abdominal wall abscess L02.211 Diabetes mellitus treated with insulin and oral medication E11.9; Z79.4; Z79.84 Coronary artery disease involving [place] heart without angina pectoris, unspecified vessel or lesion type I25.10 Associated angina: without angina Coronary Disease-Associated Artery/Lesion type: unspecified vessel or lesion type [place] vs. transplanted heart: [place] heart Status post insertion of drug-eluting stent into left anterior descending (LAD) artery Z95.5 Primary hypertension I10 Hypertension type: primary hypertension Pure hypercholesterolemia E78.00 Hyperlipidemia type: pure hypercholesterolemia Ischemic cardiomyopathy I25.5 Chronic HFrEF (heart failure with reduced ejection fraction) I50.22 Does not have health insurance Z59.71 (3) CAD (coronary artery disease) Associated angina: without angina Coronary Disease-Associated Artery/Lesion type: unspecified vessel or lesion type [place] vs. transplanted heart: [place] heart Qualified Code(s): I25.10 - Atherosclerotic heart disease of [place] coronary artery without angina pectoris (5) Hypertension Hypertension type: primary hypertension Qualified Code(s): I10 - Essential (primary) hypertension (6) Hyperlipidemia Hyperlipidemia type: pure hypercholesterolemia Qualified Code(s): E78.00 - Pure hypercholesterolemia, unspecified"
[2025-08-19 12:23] LABS: Anion Gap 7.0 (3-11); Calcium 8.8 mg/dl (8.6-10.3); Carbon Dioxide 30.0 mmol/L (21-32); Chloride 98.0 mmol/L (98-107); Magnesium 2.2 mg/dl (1.7-2.4); Potassium 4.2 mmol/L (3.5-5.1); Sodium 135.0 mmol/L (136-145)
[2025-08-19 12:29] LABS: Blood Urea Nitrogen 23.0 mg/dl (6-23); Creatinine Clr Calc Pharmacy 84.2 ml/min; Glucose 221.0 mg/dl (70-99(Fasting))
[2025-08-19] MEDS: NYSTATIN POWDER 15GM BTL EXT PRN (21:50)
[2025-08-20] MEDS ORDERED: LINEZOLID 600 MG TAB PO SCH
--- NOTE | 2025-08-20 06:19 | Hospitalist Progress Note ---
"Date of Service August 19, 2025 Assessment & Plan (1) Abdominal wall abscess: (2) Diabetes mellitus treated with insulin and oral medication: (3) CAD (coronary artery disease): (4) Status post insertion of drug-eluting stent into left anterior descending (LAD) artery: (5) Hypertension: (6) Hyperlipidemia: (7) Ischemic cardiomyopathy: (8) Chronic HFrEF (heart failure with reduced ejection fraction): (9) Does not have health insurance: Plan 60yo female with DM2, CAD s/p stents, chronic HFrEF previously followed by [facility], HTN, Hyperlipidemia. Presented with persistent abdominal wall abscess. This has been present going back to July. #Abdominal wall Abscess/Cellulitis - -s/p I&D of abscess by Dr. Barker on 08/15 - appreciate his assistance -s/p wound vac placement on 08/16 - wound care team exchanged the vac today, -all cultures negative (including intra-op culture) but gram stain did show GPC and GNR -cont daptomycin IV and rocephin IV today, switch to PO augmentin + zyvox tomorrow on 08/20 (had keflex/doxy in July thus will defer on these 2 abx) -plan 2 days of zyvox, and 5 days of augmentin #Type 2 DM - -HbA1c 15% -had not been taking insulin as outpatient due to lack of health insurance -certainly her uncontrolled DM contributed to heightened risk for the abd wall abscess -appreciate assistance from pharmacy glycemic team -cont basal-bolus insulin -appreciate ems educator assistance -patient does have medical assistance/Medicaid application pending #CAD | HTN - -hx of stents - continue ASA & Plavix -cont reduced dose of metoprolol succinate 25mg/day -added back low-dose Entresto BID #chronic HFrEF - -previous echo in 2022 with EF 35-40% with grade 1 diastolic dysfunction -updated echo this admission - EF 45-50%, grade 1 diastolic dysfunction, multiple WMA's (but chronic) -compensated on exam today once again -her meto succ dose of 100mg daily had been held due to low-normal BPs -resumed the meto succ but at reduced ose of 25mg/day -stopped losartan-HCTZ -substituted Entresto BID low-dose DVT prophylaxis: Lovenox daily will reach out to case management to see how she can get a wound vac for home use in light of having no health insurance once wound management plan is set can d/c home appreciate wound care assistance Admission and Anticipated Discharge Date Admission Date: August 14, 2025 Subjective no events overnight diarrhea resolved; stools normal minimal discomfort over R lower abdomen near abscess site/wound vac wound vac exchanged today by wound are nursing no new complaints Review of Systems Review of Systems: gen - no fevers, no chills cv - no orthopnea, no chest pain pulm - no dyspnea GI - no nausea, no emesis Physical Exam Physical Exam: gen - NAD, pleasant, laying in bed comfortably; looks great neck - no JVD mouth - MMM heart - RRR, s1 s2, no murmur lungs - CTA b/l abd - soft NT ND BS+; wound vac in place right lower abdominal wall; no abd wall cellulitis ext - no edema, pulses 2+ b/l feet psych - a/o x 3 Results & Data Results & Data Vital Signs (Past 12 Hours) Vital Signs Temp Pulse Resp BP BP Pulse Ox O2 Del Method 08/19/25 15:00 36.8 C 79 16 131/83 94 Room Air 08/19/25 07:21 36.7 C 79 16 126/82 97 Room Air Laboratory Results Laboratory Results - last 24 hr 08/19/25 08/19/25 08/19/25 07:25 11:26 11:28 Sodium 135 L Potassium 4.2 Chloride 98 Carbon Dioxide 30 Anion Gap 7 BUN 23 Creatinine 0.81 Est Cr Clr Drug Dosing 84.2 eGFR 83.05 BUN/Creatinine Ratio 28.4 H Glucose 221 H POC Glucose 158 H 224 H Calcium 8.8 Magnesium 2.2 Diagnostic Findings Microbiology 08/15/25 Unknown Abdomen Gram Stain - Final 08/15/25 Unknown Abdomen Aerobic and Anaerobic Culture - Preliminary Moderate counts mixed probable skin microbiota. 08/14/25 15:21 Abdomen Gram Stain - Final 08/14/25 15:21 Abdomen Wound Culture - Final Low counts mixed probable skin microbiota. No further identifications or sensitivities to follow. PG Care Time/CCT Total # of Minutes Spent Total Time Spent with Patient: Total time spent is greater than 50% in coordination of care (as documented) at patient's floor/unit and/or counseling patient: Coding Level of Care Code 42472 SUB INP/OBS CARE 2/35MIN Diagnoses Abdominal wall abscess L02.211 Diabetes mellitus treated with insulin and oral medication E11.9; Z79.4; Z79.84 Coronary artery disease involving [place] heart without angina pectoris, unspecified vessel or lesion type I25.10 Coronary Disease-Associated Artery/Lesion type: unspecified vessel or lesion type [place] vs. transplanted heart: [place] heart Associated angina: without angina Status post insertion of drug-eluting stent into left anterior descending (LAD) artery Z95.5 Primary hypertension I10 Hypertension type: primary hypertension Pure hypercholesterolemia E78.00 Hyperlipidemia type: pure hypercholesterolemia Ischemic cardiomyopathy I25.5 Chronic HFrEF (heart failure with reduced ejection fraction) I50.22 Does not have health insurance Z59.71 (3) CAD (coronary artery disease) Coronary Disease-Associated Artery/Lesion type: unspecified vessel or lesion type [place] vs. transplanted heart: [place] heart Associated angina: without angina Qualified Code(s): I25.10 - Atherosclerotic heart disease of [place] coronary artery without angina pectoris (5) Hypertension Hypertension type: primary hypertension Qualified Code(s): I10 - Essential (primary) hypertension (6) Hyperlipidemia Hyperlipidemia type: pure hypercholesterolemia Qualified Code(s): E78.00 - Pure hypercholesterolemia, unspecified"
[2025-08-20] MEDS: AMOXICILLIN/CLAVULANATE 875 MG TAB PO SCH (08:49)
[2025-08-20] MEDS: LINEZOLID 600 MG TAB PO SCH (08:50)
[2025-08-20 16:13] VITALS: BP 130/78; RESP 16; TEMP 98.1; O2SAT 96
--- NOTE | 2025-08-20 17:50 | Discharge Summary ---
Discharge Summary Date of Service August 20, 2025 Principal Dx & Hospital Course #1 = Principal Diagnosis (1) Abdominal wall abscess: (2) Diabetes mellitus treated with insulin and oral medication: (3) CAD (coronary artery disease): (4) Status post insertion of drug-eluting stent into left anterior descending (LAD) artery: (5) Hypertension: (6) Hyperlipidemia: (7) Ischemic cardiomyopathy: (8) Chronic HFrEF (heart failure with reduced ejection fraction): (9) Does not have health insurance: Plan 60yo female with DM2, CAD s/p stents, chronic HFrEF previously followed by [facility], HTN, Hyperlipidemia. Presented with persistent abdominal wall abscess. This has been present going back to July. #Abdominal wall Abscess/Cellulitis - -s/p I&D of abscess by Dr. Barker on 08/15 - appreciate his assistance -s/p wound vac placement on 08/16 - wound care team exchanged the vac today, 08/19 -all cultures negative (including intra-op culture) but gram stain did show GPC and GNR -cont daptomycin IV and rocephin IV today, switch to PO augmentin + zyvox tomorrow on 08/20 (had keflex/doxy in July thus will defer on these 2 abx) -plan 2 days of zyvox, and 5 days of augmentin #Type 2 DM - -HbA1c 15% -had not been taking insulin as outpatient due to lack of health insurance -certainly her uncontrolled DM contributed to heightened risk for the abd wall abscess -appreciate assistance from pharmacy glycemic team -cont basal-bolus insulin -appreciate telehealth nurse educator assistance -patient does have medical assistance/Medicaid application pending #CAD | HTN - -hx of stents - continue ASA & Plavix -cont reduced dose of metoprolol succinate 25mg/day -added back low-dose Entresto BID #chronic HFrEF - -previous echo in 2022 with EF 35-40% with grade 1 diastolic dysfunction -updated echo this admission - EF 45-50%, grade 1 diastolic dysfunction, multiple WMA's (but chronic) -compensated on exam today once again -her meto succ dose of 100mg daily had been held due to low-normal BPs -resumed the meto succ but at reduced ose of 25mg/day -stopped losartan-HCTZ -substituted Entresto BID low-dose DVT prophylaxis: Lovenox daily will reach out to case management to see how she can get a wound vac for home use in light of having no health insurance once wound management plan is set can d/c home appreciate wound care assistance Admission HPI Per Admitting Provider This is a 60 year old female with a PMH of DM2, CAD s/p stenting, HTN, HLD - recent ER visit with an abdominal wall abscess; at that time was discharged with Bactrim. Has been on Bactrim since that discharge on 08/08; was seen by general surgery today in the office. The abscess does not appear to be improving, so the general surgery team told her to come to the ER for further eval. in the ER, patient was started on Rocephin, flagyl and Daptomycin. Discharge Exam gen - NAD, pleasant, laying in bed comfortably; looks great neck - no JVD mouth - MMM heart - RRR, s1 s2, no murmur lungs - CTA b/l abd - soft NT ND BS+; wound vac in place right lower abdominal wall; no abd wall cellulitis ext - no edema, pulses 2+ b/l feet psych - a/o x 3 Discharge Plan Discharge Items Patient Disposition: Home - Self-Care Reason For Visit: ABDOMINAL WALL ABSCESS Discharge Diagnosis: 1. abdominal wall abscess with drainage procedure by surgery 2. diabetes 3. coronary artery disease 4. mild cardiomyopathy/congestive heart failure - ejection fraction now 45-50% 5. high blood pressure Activity: As commented below Activity Comment: gradually increase activities as tolerated Non-emergency contact: Primary Care Provider and Specialist Call non-emergency contact if: you have any medication questions, your symptoms worsen, your pain is not controlled, your pain is worsening, your pain is unusual for you, your pain is concerning for you, you have a fever, your wound has increased redness, your wound has increased drainage and your wound pain has increased Follow-up/Referrals: Denia Reid CRNP [Primary Care Provider] - (see Ms Reid next 1-2 weeks - if possible - to recheck your blood pressure, diabetes, etc.) Noemi Jim DO, FACEP [Physician] - 08/26/25 9:30 am (wound clinic ) Russell Barker DO [Surgeon] - (if any problems with the wound you may contact Dr Barker as needed) Diet: Carb Consistent or DM2 and Heart Healthy Madeleine Attending Provider Instructions: Ken Erickson were hospitalized due to an abdominal wall abscess. This was drained in the operating room by Dr Barker on 08/15/25. The abscess improved due to the drainage procedure as well as IV antibiotics. Also during this visit the social work staff assisted you with completion of an application for medical assistance. Hopefully we will hear back about the insurance in about 1-2 weeks. The patient educator met with you to determine an insulin regimen while awaiting insurance. See her diabetes instructions below. Recommendations - 1. antibiotics - -amoxicillin-clavulanate 1 tablet twice daily x 4 days, take your first dose tomorrow -take with meals -most common side effect - diarrhea -linezolid - 1 tablet tonight at bedtime, 1 tablet tomorrow morning, and 1 tablet tomorrow evening, then stop -[facility] is supplying 3 tablets for you to take home 2. diabetes - -Novolog Flexpen 70/30 twice daily as below 3. please cut your metoprolol succinate tablet in half and take 1/2 tablet (50mg) once daily each morning 4. before dressing changes - about 30 minutes prior - you can take a pain pill (hydrocodone-acetaminophen) -note that this medicine contains tylenol (acetaminophen) -if you are taking this pain killer try not to take extra [id number] tylenol -this medicine may make you constipated -this medicine can make you sleepy -do not drive a car if you are taking the hydrocodone pain pill -do not drink alcohol while on this medicine 5. HOLD your losartan-hydrochlorothiazide 6. Wound care instructions - -start daily dressing changes TOMORROW on 08/21/25 -see dedicated instructions from Ana Galeas from the wound care team (Aquacel Ag and Optifoam) -keep the appointment with the wound care center as scheduled Follow-up - see separate section Return to [facility] if - -you have fevers over 100 degrees -you have worsening redness, drainage, foul odor, pain, etc from the wound -you develop severe diarrhea (3 or more liquid stools in 24 hours) -any other concerns It was our pleasure to care for you! -Simeon Salvador Formulator Compounder Provider Instructions: DIABETES RECOMMENDATIONS: 1.) Diabetes Meds. - You are being sent home on Novolog Mix 70/30 Flexpen. - You will take this 10-15 minutes before breakfast and 10-15 minutes before your evening meals. -Take 35 units before breakfast -Take 15 units before your evening meal - Give the coupon paper provided to your pharmacy to help lower the cost to $0. - If MAWD is approved, you can continue a similar insulin regimen (Insulin Aspart Protamine-Insulin Aspart 70-30 Pen) vs. can transition back to prior diabetes medications including Lantus + Novolog + Jardiance. Your outpatient provider can help with this. - If MAWD is denied, you can transition to [employer]'s ReliOn/Novolin 70/30 Flexpen. Cost is $25/vial or $43/box of 5 pens. - You can get this over the counter thru the pharmacy. - You will take this 30 minutes before breakfast and 30 minutes before supper meals. 2.) Monitoring. - Try to check your blood sugar 2-3x/day. - Before breakfast and before supper daily. - Before lunch and before bed x 2 days/week. - Aim to maintain blood sugar levels below 200 (ideally below 150 before meals) to support healing. - Please notify your provider of blood sugar levels above 200 x 3 days or any values below 90. 3.) Diet. - Aim for regular/balanced meals every 4-5 hours thru day + small bedtime snack with protein. - Try to increase your protein intake to support healing. Pending Studies at Discharge: No Stand-Alone Forms: My [facility], Smoking Cessation Medications and DC Order Prescriptions: New linezolid 600 mg Tablet 600 mg PO BID Qty: 3 0RF Rx Instructions: take first dose PM of 08/20, then AM of 08/21, then PM of 08/21. Total 3 doses. nystatin [Nystop] 100,000 unit/gram Powder 1 applic EXT TID PRN (Reason: yeast rash (groin, under breasts, etc)) Qty: 15 0RF amoxicillin-pot clavulanate 875-125 mg Tablet 1 tab PO BIDM 4 Days Qty: 8 0RF insulin asp prt-insulin aspart [Novolog Mix 70-30FlexPen U-100] 100 unit/mL (70-30) insulin pen See Rx Instructions .ROUTE .COMPLEX Qty: 15 5RF Rx Instructions: take 35 units about 15 minutes prior to breakfast, and take 15 units about 15 minutes prior to your evening meal. start AM of 08/21/25. hydrocodone-acetaminophen 5-325 mg tablet 1 tab PO Q6H PRN (Reason: pain) Qty: 10 0RF Continued (DME) Dexcom G7 Survey Supervisor Misc See Rx Instructions .Route Qty: 1 1RF Rx Instructions: test 4-5 x a day (DME) Dexcom G7 Sensor Device See Rx Instructions .Route Qty: 3 5RF Rx Instructions: change sensor every 10 days clopidogrel 75 mg tablet 75 mg PO QAM 30 Days Qty: 30 11RF (DME) insulin syringe-needle U-100 0.3 mL 31 gauge x 5/16" syringe See Rx Instructions .Route Qty: 100 3RF Rx Instructions: USE WITH INSULIN TWICE DAILY albuterol sulfate 90 mcg/actuation HFA aerosol inhaler 2 puff inhalation QID PRN (Reason: shortness of breath or wheezing) Qty: 8.5 0RF acetaminophen [Tylenol Extra Strength] 500 mg Tablet 1,000 mg PO Q6H PRN (Reason: Fever Or Pain) aspirin 81 mg Tablet,Delayed Release (Dr/Ec) 81 mg PO QAM 30 Days Qty: 30 1RF (DME) pen needle, diabetic 32 gauge x 5/32" needle See Rx Instructions .Route Qty: 100 1RF Rx Instructions: Use twice a day (DME) OneTouch Verio test strips Strip See Rx Instructions .Route Qty: 100 1RF Rx Instructions: Check 3 times a day (DME) lancets [OneTouch Delica Plus Lancet] 33 gauge misc See Rx Instructions .Route Qty: 100 1RF Rx Instructions: Check 3 times a day nystatin 100,000 unit/gram powder 1 applic topical BID PRN (Reason: Other) Changed metoprolol succinate 100 mg tablet extended release 24 hr 50 mg PO DAILY Qty: 30 5RF Held losartan-hydrochlorothiazide 50-12.5 mg tablet 1 tab PO DAILY Qty: 30 2RF Hold Instructions: hold for now Discontinued insulin aspart U-100 [Novolog FlexPen U-100 Insulin] 100 unit/mL (3 mL) insulin pen See Rx Instructions subcut TID Qty: 15 6RF Hold Instructions: not using Rx Instructions: 5-10 u per sliding scale subcutaneously three times a day; with meals 3 x a day Humulin 70/30 U-100 Insulin 100 unit/mL (70-30) suspension 20 unit subcut BID Qty: 10 4RF Rx Instructions: pt has no insurance paying out of pocket sulfamethoxazole-trimethoprim [Bactrim DS] 800-160 mg tablet 1 tab PO BID Qty: 20 0RF insulin glargine [Lantus Solostar U-100 Insulin] 100 unit/mL (3 mL) insulin pen 0 unit subcut QPM Hold Instructions: not using Discharge Orders: Discharge Order (Routine); Ordered 08/20/25 Ordered By: Simeon Domínguez Admission Data Admit Date/Time: 08/14/25 18:47 Attending Provider: Simeon Domínguez Admit Provider: Yolande Monteiro Primary Care Provider: Denia Reid Other Providers: Yolande Monteiro Hospital Stay Data Consultations 08/14/25 15:44 ED Decision to Admit Stat Procedures Performed Operation Date: 08/15/25 10:45 Actual Procedures p Incision and Drainage Abdominal Wall Abscess - Russell Barker, DO Diagnostic Imagining Performed 08/14/25 21:20 CT Abd and Pelvis [CT abd pelvis IV con only] Stat Pending Results Patient Have Any Pending Studies at Discharge: No Discharge Instructions Given to Patient (Per Discharging Provider) Ken Erickson were hospitalized due to an abdominal wall abscess. This was drained in the operating room by Dr Barker on 08/15/25. The abscess improved due to the drainage procedure as well as IV antibiotics. Also during this visit the social work staff assisted you with completion of an application for medical assistance. Hopefully we will hear back about the insurance in about 1-2 weeks. The patient educator met with you to determine an insulin regimen while awaiting insurance. See her diabetes instructions below. Recommendations - 1. antibiotics - -amoxicillin-clavulanate 1 tablet twice daily x 4 days, take your first dose tomorrow -take with meals -most common side effect - diarrhea -linezolid - 1 tablet tonight at bedtime, 1 tablet tomorrow morning, and 1 tablet tomorrow evening, then stop -[facility] is supplying 3 tablets for you to take home 2. diabetes - -Novolog Flexpen 70/30 twice daily as below 3. please cut your metoprolol succinate tablet in half and take 1/2 tablet (50mg) once daily each morning 4. before dressing changes - about 30 minutes prior - you can take a pain pill (hydrocodone-acetaminophen) -note that this medicine contains tylenol (acetaminophen) -if you are taking this pain killer try not to take extra [id number]-[id number] tylenol -this medicine may make you constipated -this medicine can make you sleepy -do not drive a car if you are taking the hydrocodone pain pill -do not drink alcohol while on this medicine 5. HOLD your losartan-hydrochlorothiazide 6. Wound care instructions - -start daily dressing changes TOMORROW on 08/21/25 -see dedicated instructions from Ana Galeas from the wound care team (Aquacel Ag and Optifoam) -keep the appointment with the wound care center as scheduled Follow-up - see separate section Return to [facility] if - -you have fevers over 100 degrees -you have worsening redness, drainage, foul odor, pain, etc from the wound -you develop severe diarrhea (3 or more liquid stools in 24 hours) -any other concerns It was our pleasure to care for you! -Simeon Domínguez Coding Diagnoses Abdominal wall abscess L02.211 Diabetes mellitus treated with insulin and oral medication E11.9; Z79.4; Z79.84 Coronary artery disease involving [place] heart without angina pectoris, unspecified vessel or lesion type I25.10 Coronary Disease-Associated Artery/Lesion type: unspecified vessel or lesion type [place] vs. transplanted heart: [place] heart Associated angina: without angina Status post insertion of drug-eluting stent into left anterior descending (LAD) artery Z95.5 Primary hypertension I10 Hypertension type: primary hypertension Pure hypercholesterolemia E78.00 Hyperlipidemia type: pure hypercholesterolemia Ischemic cardiomyopathy I25.5 Chronic HFrEF (heart failure with reduced ejection fraction) I50.22 Does not have health insurance Z59.71
[2025-08-20 18:06] VITALS: PULSE 76
== END 2025-08-20 18:49 | disposition home or self-care (01) | DRG 580 ==
LOC: ED 12:23 → SUATTDRO 18:47 → 3W 18:47